=== PATIENT | male | born 1970 | race Caucasian/White ===

== ENCOUNTER 2017-05-11 09:20 | Inpatient (IN) | payer BC ==
[2017-05-11 10:26] LABS: ABS Basophils 0.1 10^3/ul (0-0.2); ABS Eosinophils 0 10^3/ul (0-0.6); ABS Lymphocytes 1.3 10^3/ul (1.0-4.8); ABS Neutrophils 9.4 10^3/ul (1.5-7.7); ABS Nucleated RBC 0 10^3/ul; Eosinophil % 0.3 % (0-6); Hematocrit 35 % (42-52); Lymphocyte % 11.3 % (25-47); Mean Corpuscular HGB Conc 34 g/dl (31-36); Mean Corpuscular Hemoglobin 33 pg (27-31); Mean Corpuscular Volume 99 fL (80-94); Mean Platelet Volume 8 um3 (7.4-10.4); Nucleated Red Blood Cells % 0.1; Platelet Count 366 10^3/ul (150-450); Red Blood Count 3.58 10^6/ul (4.0-5.4); Red Cell Distribution Width 17 % (10.5-15); White Blood Count 11.9 10^3/ul (3.5-10.8)
[2017-05-11 10:48] LABS: EGFR Non-African American 12.7 (>60)
--- NOTE | 2017-05-11 10:48 | RAD ---
INDICATION: Shortness of breath for 2 weeks. Midsternal chest pain. Bilateral lower extremity edema. History of amyloidosis. COMPARISON: March 06, [address] TECHNIQUE: Dual energy PA and routine lateral views of the chest were obtained. REPORT: Clear lungs and pleural spaces. Negative for pneumothorax. The heart, pulmonary vasculature, and mediastinal contours are unremarkable. Unremarkable osseous structures and soft tissue contours. IMPRESSION: No evidence for acute intrathoracic disease.
[2017-05-11] MEDS ORDERED: Acetaminophen TAB* 325 MG PO PRN (13:21)
[2017-05-11] MEDS ORDERED: Ondansetron INJ* 2 MG/ML VIAL IV PRN (13:21)
[2017-05-11] MEDS ORDERED: Aspirin TAB* 325 MG PO ONE (13:32)
[2017-05-11] MEDS ORDERED: Prochlorperazine TAB* 10 MG PO PRN (13:43)
[2017-05-11] MEDS ORDERED: Ondansetron TAB* 4 MG PO PRN (13:43)
[2017-05-11] MEDS ORDERED: Heparin DRIP 25,000 UNITS(*) 25,000 UNITS/500 ML BAG IV SCH (13:45)
[2017-05-11] MEDS ORDERED: Heparin VIAL(*) 5000 UNITS/ML VIAL (FIVE THOUSAND) IV SCH (14:00)
[2017-05-11] MEDS ORDERED: Enoxaparin(*) 40 MG/0.4 ML SYR SUBCUT SCH (15:00)
--- NOTE | 2017-05-11 15:28 | CONSULT ---
Subjective Date of Service: 05/11/17 Interval History: 05/11/2017 Service: Heme/Onc Film Maker: Dr. Rodriguez [facility] Director: Dr. Hannon PMD: Dr. Oquendo CC: dyspnea, fluid retention, chest discomfort Reason for consult: same plus abnormal troponin level HPI Mr. Kasper is an unfortunate 47 year old man with a history of AL amyloidosis and what appears to be severe renal involvement s/p biopsy with nephrotic syndrome and now I suspect cardiac involvement. He is admitted with fluid retention, poor appetite, dyspnea on any activity such as sitting up and episodes of chest pressure mostly when trying to lay flat. He has evidence of volume overload on examination. He has a detectable troponin that is stable on repeat examination and an abnormal EKG with no baseline for comparison. He has recently started chemotherapy. We talked about patients situation and testing performed so far. I do not appreciate evidence of a type 1 plaque disruption ND. We talked about gold standard of CAD evaluation being a coronary angiogram although this may precipitate need for dialysis which is trying to be avoided. As an alternative we will do a stress test. My overall suspicion is symptoms related to CHF and the stable troponin reflective of myocardial infiltrative disesae and renal disease. I discussed with CONCETTA Curiel who has already discussed with Dr. Hannon the need to begin loop diuretics and this is to be started IV. His echocardiogram from last month was reviewed. There is severe LVH. The EKG voltage today is low. His BP review from PMD office since 09/2013 shows an overall average of about ~ 140/85. 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 His is at bedside. 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 Fam Hx: DM, CAD, AFib allergies; nkda Medications Active Medications: Acetaminophen (Tylenol Tab*) 650 mg PO Q4H PRN PRN Reason: FEVER/PAIN Hydrocodone Bitart/Acetaminophen ([place] 5-325 Tab*) 2 tab PO Q4H PRN PRN Reason: PAIN Aspirin (Aspirin Ec Low Dose*) 81 mg PO DAILY [facility] Bumetanide (Bumex*) 1 mg SLOW PUSH DAILY [facility] Heparin Sodium (Porcine) (Heparin Vial(*)) 5,000 units SUBCUT Q8HR [facility] Magnesium Oxide (Magox 400 Tab*) 400 mg PO BID [facility] Ondansetron HCl (Zofran Inj*) 4 mg IV Q4H PRN PRN Reason: NAUSEA/VOMITING Ondansetron HCl (Zofran Tab*) 4 mg PO Q4HR PRN PRN Reason: NAUSEA/VOMITING Prochlorperazine (Compazine Tab*) 10 mg PO Q6H PRN PRN Reason: NAUSEA/VOMITING Trimethoprim/Sulfamethoxazole (Bactrim Ds 800/160 Tab*) 1 tab PO MoWeFr@0900 [facility] Valacyclovir HCl (Valtrex 500 Mg (*)) 500 mg PO BID [facility] PRN Reason: Protocol Home Medications: Cyclophosphamide 800 mg PO TU 05/11/17 [History Confirmed 05/11/17] Dexamethasone TAB* [Decadron TAB*] 40 mg PO TU 05/11/17 [History Confirmed 05/11] Hydrocodone/Acetamin 10/325(NF [[place] 10/325 (NF)] 1 tab PO Q4HR PRN 05/11/17 [ History Confirmed 05/11/17] Ondansetron TAB* [Zofran 4 MG Tab*] 4 mg PO Q4HR PRN MDD 4 mg 05/11/17 [History Confirmed 05/11/17] Prochlorperazine TAB* [Compazine Tab*] 10 mg PO Q6H PRN 05/11/17 [History Confirmed 05/11/17] Sulfamethox/Trimethoprim DS* [Bactrim DS 800/160 TAB*] 1 tab PO MOWEFR 05/11/17 [History Confirmed 05/11/17] ValACYclovir (*) [Valtrex 500 mg (*)] 500 mg PO BID 05/11/17 [History Confirmed 05/11/17] Review of Systems - Review of Systems Constitutional Symptoms: Negative: Weight Gain, Weight Loss, Weakness Dermatology: Negative: Rash, Skin Lesions HEENT: Negative: Change in Hearing, Vertigo Eyes: Negative: Change in Vision, Double Vision Thyroid: Negative: Cold Intolerance, Heat Intolerance, Primary Hypothyroidism, Primary Hyperthyroidism, Weight Loss, Weight Gain Pulmonary: Positive: Respiratory Distress, Shortness of Breath, Exercise Intolerance Negative: Cough, Sputum, Hemoptysis, Wheezing, Asthma, Home Oxygen Cardiology: Positive: Chest Pain, Shortness of Breath, Swelling of Ankles, Edema Negative: Palpitations, Peripheral Vascular Dis, Syncope, Claudication Gastroenterology: Positive: Nausea, Anorexia Negative: Abdominal Pain, Vomiting, Heartburn, Constipation, Diarrhea, Blood in Stools, Haematemesis, Melena Genital - Urinary: Negative: Dysuria, Nocturia Musculoskeletal: Positive: Low Back Pain Negative: Joint Pain, Joint Stiffness, Osteoporosis Endocrinology: Positive: Obesity Negative: Diabetes, Hyperglycemia, Hypoglycemia, Polydipsia, Polyuria Hematologic/Lymphatic: Negative: Use of Anticoagulant, Use of Antiplatelet Drugs Neurology: Negative: Diplopia, Dizziness, Change in Speech, Change in Sphincter Function , Hx of Stroke\TIA, Hx Seizures Psychiatry: Negative: Sexual Dysfunction, Weight Change, Unusual Anxiety, Suicidal Ideation, Hypomania, Eating Disorders, Other Allergic/Immunologic: Negative: Hx Anaphylaxis, Hx Angioedema, Hx HIV Review of Systems Statement: All other review of systems negative, unless stated above. Objective Vital Signs: Temp Pulse Resp BP Pulse Ox 98 F 78 18 127/80 97 05/11/17 15:10 05/11/17 15:10 05/11/17 15:10 05/11/17 15:10 05/11/17 15:10 Appearance: pleasant, chronically ill and fatigued appearing Neck: Trachea Midline, - - uncertain jvp Respiratory: Clear to Auscultation - mild increased work of breathing Cardiovascular: RRR - distant, no obvious murmur or extra heart sounds, has edema of legs 3+ and abdominal wall. Abdominal: - - soft, no rigidity Extremities: No Clubbing, Cyanosis Skin: No Rash or Ulcers Neurological: Alert and Oriented x 3 Laboratory Results: 05/11/17 10:09 05/11/17 10:09 Total Bilirubin 0.30 mg/dL (0.2-1.0) 05/11/17 10:09 AST 20 U/L (13-39) 05/11/17 10:09 ALT 47 U/L (7-52) 05/11/17 10:09 Alkaline Phosphatase 548 U/L (34-104) H 05/11/17 10:09 CK-MB (CK-2) 3.8 ng/mL (0.6-6.3) 05/11/17 10:09 B-Natriuretic Peptide 534 pg/mL (-100) H 05/11/17 10:09 Total Protein 4.2 g/dL (6.4-8.9) L 05/11/17 10:09 Albumin 1.8 g/dL (3.2-5.2) L 05/11/17 10:09 Globulin 2.4 g/dL (2-4) 05/11/17 10:09 Albumin/Globulin Ratio 0.8 (1-3) L 05/11/17 10:09 TSH 2.36 mcIU/mL (0.34-5.60) 05/11/17 10:09 05/11/17 05/11/17 10:09 12:56 Troponin I 0.26 H* 0.25 H* Renal biopsy 03/2017: LA lambda type amyloidosis, mild-moderate arteriosclerosis Diagnostic Imaging: CT 03/06/2017 indication chest pain: No pulmonary lesions CXR 05/11/2017: No acute disease, normal sized cardiac silhouette EKG today NSR, low limb lead and precordial voltage, diffuse T wave inversions except aVR and v1-v3 EKG Data: Echo 04/20/2017 (reviewed): IVS ~ 2.0 cm, LPW ~ 1.8 cm (severe LVH), LVEF normal , normal RV size and function (thickness not well evaluated) e/e' 12, LA indexed volume ~ 35 (mildly dilated), normal estimated PASP Assessment/Plan Edgardo Kasper is a 47 year old man admitted with symptomatic volume overload with chest discomfort and an abnormal EKG/troponin in the setting of 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 - IV diuresis to begin today, keep K and Mg replaced - Will arrange a vasodilator stress MPI tomorrow - Repeat EKG, would check one more troponin. - Continue aspirin 81 mg po daily - I advised patient have a non-urgent consultation with heart failure specialist Dr. Swetha Modi at the [facility] at some point. - Will follow Thank you for allowing me to participate in the cardiovascular care of this patient. Please do not hesitate to contact me with questions or concerns.
[2017-05-11] MEDS: Bumetanide IV* 0.25 MG/ML 4 ML VIAL SLOW PUSH SCH (15:58)
[2017-05-11] MEDS: HYDROcodone/ACETAMIN 5-325 MG* 1 TAB PO PRN ×2 (15:58→20:08)
--- NOTE | 2017-05-11 18:58 | HP ---
CC: Dr. Rodriguez; Dr. Oquendo* ADMISSION HISTORY AND PHYSICAL: DATE OF ADMISSION: 05/11/17 PRIMARY ONCOLOGIST: Dr. Rodriguez. ATTENDING PHYSICIAN: Dr. Santoro* (dictated by CONCETTA Oh). PRIMARY CARE PROVIDER: Jamaal Oquendo MD CHIEF COMPLAINT: Chest pain and shortness of breath. HISTORY OF PRESENT ILLNESS: This is a 47-year-old gentleman with a relatively recent diagnosis of amyloidosis with associated progressive renal failure, recently started induction therapy under the care of Dr. Rodriguez. The patient started his first cycle with cyclophosphamide, Velcade and dexamethasone on with day 15 and 22 Velcade infusions on 05/02/17 and 05/09/17 respectively. The patient has had complaints of progressive shortness of breath and lower extremity edema over at least the last month or so. Over the last couple of days, his shortness of breath and the severity of his edema has increased significantly. He tolerated his first 2 treatments well, but yesterday which was the day following his last treatment day, he had significant nausea, vomiting, and diarrhea. He treated symptoms with Compazine and Zofran with some improvement in his nausea and vomiting. His appetite remains poor, but his diarrhea has resolved and he has not vomited further today. The patient's states that he complained of some chest tightness last night that resolved spontaneously, but then recurred again this morning at approximately 6:00 a.m. while at rest. He described the sensation as a heaviness, but without significant change in his dyspnea. His dyspnea is generally related only to exertion, and has none at rest. The chest heaviness that brought him to the emergency department was rather persistent, but seemed to lessen in severity once reaching the emergency department. He denies any associated cough or fever. He remains with good urine output, but reports that it is slightly frothy and foul smelling. The patient has met with Dr. Hannon prior to initiating therapy. The patient has no known coronary disease or other cardiac complication. He did have an echocardiogram prior to initiating therapy, which demonstrated moderate to severe ventricular hypertrophy with associated diastolic dysfunction, but a preserved ejection fraction estimated at 55% to 60%. There is no comment as to the presence of pulmonary hypertension on that echocardiogram. PAST MEDICAL HISTORY: 1. Amyloidosis AL lambda type. 2. Progressive renal failure secondary to amyloidosis. 3. Morbid obesity with a BMI of 39. 4. Chronic back pain. HOME MEDICATIONS: 1. Cyclophosphamide 800 mg p.o. weekly on Tuesdays. 2. Velcade weekly on Tuesdays. 3. Dexamethasone 40 mg p.o. weekly on Tuesdays. 4. Hydrocodone/acetaminophen 10/325, 1 tablet p.o. q.4 hours as needed for pain. 5. Zofran 4 mg p.o. q.4 hours as needed for nausea and vomiting. 6. Compazine 10 mg p.o. q.6 hours as needed for nausea and vomiting. 7. Bactrim DS 1 tablet p.o. on Mondays,Wednesdays, and Fridays. 8. Valacyclovir 100 mg p.o. twice daily. SOCIAL HISTORY: Patient has a remote history of smoking, but quit several years ago, unsure of his pack year history. He reports rare alcohol consumption. The patient lives at home with his . REVIEW OF SYSTEMS: Please see HPI for pertinent positives and negatives. All other systems are reviewed and otherwise negative. PHYSICAL EXAMINATION GENERAL: This is a 47-year-old gentleman in no acute distress, but does appear to be mildly anxious, accompanied by his . VITAL SIGNS: Temperature 98.7 degrees Fahrenheit, pulse 86 beats per minute, respiratory rate 20 per minute, oxygen saturation 98% on room air, blood pressure 105/66 mmHg. HEENT: Head is normocephalic, atraumatic. Mucous membranes are pink and moist. NECK: Neck is supple, free of lymphadenopathy. RESPIRATORY: Lungs are clear auscultation without wheezes, crackles or rhonchi. CARDIOVASCULAR: Heart has a regular rate and rhythm without murmurs, rubs, or gallops. ABDOMEN: Soft and nontender to palpation. EXTREMITIES: The patient is grossly edematous in all extremities, but severely so, estimated at 3+ in his lower extremities up to his knees. He has trace edema in his upper extremities. SKIN: Patient has a focal patch of erythema over the left lateral portion of the abdomen. He states it is where he received his Velcade. LABORATORY EVALUATION: CBC shows a white blood cell count of 11,900, hemoglobin of 12 g/dL, platelet count of 366,000. Comprehensive metabolic shows a sodium of 137 mmol/L, potassium is 3.7, BUN of 48, creatinine of 4.9 with an estimated GFR of 12.7. Random glucose of 110 mg/ dL, calcium of 7.5, magnesium of 1.7. BNP elevated at 534. Troponin positive at 0.26 on repeat 3 hours later at 0.25. TSH normal at 2.36. IMAGING DATA: Chest x-ray shows no acute process. EKG shows a sinus rhythm with inverted T-waves in V4 through V6. No ST segment elevation or depression. Echocardiogram from 04/20/17 shows [id number] left ventricular hypertrophy with a preserved EF estimated at 55% to 60%. ASSESSMENT AND PLAN: This is a 47-year-old gentleman with relatively new diagnosis of amyloidosis, who just initiated induction therapy with Velcade, cyclophosphamide, and dexamethasone. First cycle started on 04/25/17 with most recent treatment on 05/09/17 just 2 days ago, who presented to the department complaints of chest pain and shortness of breath with marked edema. Initial troponin elevated concerning for possible acute coronary syndrome with ST segment changes. 1. Demand ischemia secondary to acute diastolic heart failure - Cardiology has been consulted on this case. Initial concern for possible acute coronary syndrome, but on repeat troponin, this remained stable without any ST segment changes and his history appears to be most consistent with a heart failure picture. At this time, we will not initiate anticoagulation, but rather repeat an additional troponin for a total of 3. Maintain continuous telemetry monitoring. Plan to repeat an echocardiogram. Cardiology has recommended a stress test, which will be completed tomorrow and the patient requires extensive diuresis. Discussed diuresis recommendations with gate manager, Dr. Hannon, who agreed with plan to initiate diuresis for his complaints of dyspnea. The patient will require close monitoring of I's and O's and requested daily weights. 2. Chronic renal failure secondary to amyloidosis - creatinine has climbed significantly over the last 6 months, but relatively stable over the last 4 weeks or so. The patient has been seen in consultation on an outpatient basis by Dr. Hannon. The patient is reporting good urine output at this time. We will attempt to diurese and expect to see some rise in his creatinine as a result of this. Dr. Hannon has been contacted at the time of admission and agrees to consult, then follow along during his hospitalization. 3. Morbid obesity with a BMI of 39. 4. DVT prophylaxis. Start the patient on subcu Heparin due to his renal dysfunction 5. Healthcare proxy is the patient's . 6. Code status is full. 7. Disposition: The patient is being admitted to inpatient status with likely acute diastolic heart failure with expected length of stay to be greater than 2 midnights. CONCETTA [place] [id number]/[facility] #: [id number] MELLISA
[2017-05-11] MEDS: ValACYclovir (*) 500 MG TAB PO SCH (20:08)
[2017-05-11] MEDS: Magnesium Oxide TAB* 400 MG PO SCH (20:08)
[2017-05-11] MEDS: Heparin VIAL(*) 5000 UNITS/ML VIAL (FIVE THOUSAND) SUBCUT SCH (22:57)
[2017-05-12 06:22] LABS: ABS Basophils 0.1 10^3/ul (0-0.2); ABS Eosinophils 0.1 10^3/ul (0-0.6); ABS Lymphocytes 1.4 10^3/ul (1.0-4.8); ABS Neutrophils 4.9 10^3/ul (1.5-7.7); ABS Nucleated RBC 0 10^3/ul; Eosinophil % 1.1 % (0-6); Hematocrit 30 % (42-52); Hemoglobin 10.4 g/dl (14.0-18.0); Lymphocyte % 18.3 % (25-47); Mean Corpuscular HGB Conc 35 g/dl (31-36); Mean Corpuscular Hemoglobin 35 pg (27-31); Mean Corpuscular Volume 99 fL (80-94); Mean Platelet Volume 8 um3 (7.4-10.4); Nucleated Red Blood Cells % 0.1; Platelet Count 302 10^3/ul (150-450); Red Blood Count 3.02 10^6/ul (4.0-5.4); Red Cell Distribution Width 17 % (10.5-15); White Blood Count 7.4 10^3/ul (3.5-10.8)
[2017-05-12] MEDS: Heparin VIAL(*) 5000 UNITS/ML VIAL (FIVE THOUSAND) SUBCUT SCH ×3 (06:22→22:19)
[2017-05-12 06:36] LABS: EGFR Non-African American 13.1 (>60)
[2017-05-12] MEDS: HYDROcodone/ACETAMIN 5-325 MG* 1 TAB PO PRN ×3 (06:53→17:24)
--- NOTE | 2017-05-12 08:46 | ED ---
Cl Yousif Angela, scribed for Jamaal Lazaro MD on 05/11/17 at 1035 . Shortness of Breath - HPI Summary HPI Summary: This pt is a 47 y/o male presenting to [facility] c/o SOB and weakness for the past few days. Pt additionally notes this morning the pt developed tightness in his chest. He reports he has had edema in bilateral lower extremities for "quite a while." Denies nausea, vomiting, abd pain. Pt is currently on chemo for amyloid with Dr. Rodriguez. Pt's billiard player is Dr. Hannon. - History of Current Complaint Chief Complaint: EDShortnessOfBreath Time Seen by Provider: 05/11/17 09:45 Hx Obtained From: Patient Onset/Duration: Lasting Days, Still Present Timing: Constant Current Severity: Moderate Dyspnea At: Rest Aggrevating Factors: Nothing Alleviating Factors: Nothing Associated Signs & Symptoms: Chest Pain Unrelated to Cough, Edema - Allergy/Home Medications Allergies/Adverse Reactions: Allergies Allergy/AdvReac Type Severity Reaction Status Date / Time No Known Allergies Allergy Verified 04/05/17 12:00 Home Medications: Home Medications Cyclophosphamide 800 mg PO TU 05/11/17 [History Confirmed 05/11/17] Dexamethasone TAB* [Decadron TAB*] 40 mg PO TU 05/11/17 [History Confirmed 05/11] Hydrocodone/Acetamin 10/325(NF [[place] 10/325 (NF)] 1 tab PO Q4HR PRN 05/11/17 [ History Confirmed 05/11/17] Ondansetron TAB* [Zofran 4 MG Tab*] 4 mg PO Q4HR PRN MDD 4 mg 05/11/17 [History Confirmed 05/11/17] Prochlorperazine TAB* [Compazine Tab*] 10 mg PO Q6H PRN 05/11/17 [History Confirmed 05/11/17] Sulfamethox/Trimethoprim DS* [Bactrim DS 800/160 TAB*] 1 tab PO MOWEFR 05/11/17 [History Confirmed 05/11/17] ValACYclovir (*) [Valtrex 500 mg (*)] 500 mg PO BID 05/11/17 [History Confirmed 05/11/17] PMH/Surg Hx/FS Hx/Imm Hx Endocrine/Hematology History: Denies: Hx Diabetes History: Reports: Hx Kidney Stones - 07/02/14, Hx Renal Disease - DIMINISHED GFR Neurological History: Reports: Other Neuro Impairments/Disorders - PAIN CLINIC PT - Surgical History Surgery Procedure, Year, and Place: Lithotrypsy Infectious Disease History: No Infectious Disease History: Denies: Traveled Outside the [place] in Last 30 Days - Family History Known Family History: Negative: Cardiac Disease, Hypertension, Diabetes - Social History Alcohol Use: None Alcohol Amount: maybe once a year Substance Use Type: Reports: None Substance Use Comment - Amount & Last Used: flexeril, hydrocodone Smoking Status (MU): Former Smoker Have You Smoked in the Last Year: No Review of Systems Negative: Fever, Chills Eyes: Negative Positive: Chest Pain Positive: Shortness Of Breath Positive: Edema - in bilateral LE Skin: Negative Neurological: Negative All Other Systems Reviewed And Are Negative: Yes Physical Exam - Summary Physical Exam Summary: VITAL SIGNS: Reviewed. GENERAL: Patient is an obese male who is lying comfortable in the stretcher. Patient is not in any acute respiratory distress. HEAD AND FACE: No signs of trauma. No ecchymosis, hematomas or skull depressions. No sinus tenderness. EYES: PERRLA, EOMI x 2, No injected conjunctiva, no nystagmus. EARS: Hearing grossly intact. Ear canals and tympanic membranes are within normal limits. MOUTH: Oropharynx within normal limits. NECK: Supple, trachea is midline, no adenopathy, no JVD, no carotid bruit, no c- spine tenderness, neck with full ROM. CHEST: Symmetric, no tenderness at palpation LUNGS: Clear to auscultation bilaterally. No wheezing or crackles. CVS: Regular rate and rhythm, S1 and S2 present, no murmurs or gallops appreciated. ABDOMEN: Soft, non-tender. No signs of distention. No rebound no guarding, and no masses palpated. Bowel sounds are normal. EXTREMITIES: FROM in all major joints, no cyanosis or clubbing. Bilateral lower extremity edema 2+. NEURO: Alert and oriented x 3. No acute neurological deficits. Speech is normal and follows commands. SKIN: Dry and warm. Spot of cellulitis on left side of the abdomen. Triage Information Reviewed: Yes Vital Signs On Initial Exam: Initial Vitals Temp Pulse Resp BP Pulse Ox 98.7 F 86 20 105/66 98 05/11/17 09:24 05/11/17 09:24 05/11/17 09:24 05/11/17 09:24 05/11/17 09:24 Vital Signs Reviewed: Yes Diagnostics - Vital Signs Vital Signs Temp Pulse Resp BP Pulse Ox 05/11/17 09:29 87 97 05/11/17 09:28 105/66 05/11/17 09:24 98.7 F 86 20 105/66 98 - Laboratory Result Diagrams: 05/11/17 10:09 05/11/17 10:09 Lab Statement: Any lab studies that have been ordered have been reviewed, and results considered in the medical decision making process. - Radiology Chest XR Xray Interpretation: No Acute Changes - IMPRESSION: No evidence for acute intrathoracic disease. Dr. Lazaro has reviewed this radiology report. Radiology Interpretation Completed By: Radiologist - EKG 09:50 Cardiac Rate: NL EKG Rhythm: Sinus Rhythm - a 84 bpm EKG Interpretation: No ST elevations. Diffuse ST abnormalities. Course/Dx - Course Assessment/Plan: This pt is a 47 y/o male presenting to [facility] c/o SOB and weakness for the past few days. Pt additionally notes this morning the pt developed tightness in his chest. He reports he has had edema in bilateral lower extremities for "quite a while." Denies nausea, vomiting, abd pain. Pt is currently on chemo for amyloid with Dr. Rodriguez. Pt's billiard player is Dr. Hannon. Test results without any significant abnormalities except for slight anemia, chronic renal failure, troponin of 0.26, BNP of 534. In the ED course the pt was given aspirin and because of the test results and findings, I discussed the case with Dr. Flores, hospitalist, who requested to discuss the case with Dr. Rodriguez for admission. I discussed the case with Dr. Santoro, oncologist, who recommends for the pt to be admitted to the medical team. Therefore I discussed the case with Dr. Flores, hospitalist, who accepted the pt for admission. Pt is hemodynamically stable, alert and oriented x3. - Diagnoses Provider Diagnoses: Elevated troponin, rule out AL, CHF exacerbation, Chronic renal failure - Physician Notifications Discussed Care of Patient With: Roberta Flores Time Discussed With Above Provider: 11:27 Instructed by Provider To: Other - I discussed pt care with Dr. Flores, hospitalist, who requested to discuss the case with Dr. Santoro. [11:31] I spoke with Dr. Santoro, oncologist, who recommends for the pt to be admitted to the medical team. [11:34] I discussed with Dr. Flores, hospitalist, who has accepted the pt for admission. Discharge - Discharge Plan Condition: Stable Disposition: ADMITTED TO [facility] The documentation as recorded by the Cl cheek Angela accurately reflects the service I personally performed and the decisions made by me, Jamaal Lazaro MD.
--- NOTE | 2017-05-12 09:57 | PN ---
Subjective Date of Service: 05/12/17 Interval History: f/u CHF Only has chest discomfort when tries to lay flat Unable to sleep sitting up due to back pain Urinated multiple times overnight but I am unsure of total output Lexiscan stress test planned for today Medications Active Medications: Acetaminophen (Tylenol Tab*) 650 mg PO Q4H PRN PRN Reason: FEVER/PAIN Hydrocodone Bitart/Acetaminophen ([place] 5-325 Tab*) 2 tab PO Q4H PRN PRN Reason: PAIN Last Admin: 05/12/17 06:53 Dose: 2 tab Aspirin (Aspirin Ec Low Dose*) 81 mg PO DAILY [facility] Bumetanide (Bumex*) 1 mg SLOW PUSH DAILY [facility] Last Admin: 05/11/17 15:58 Dose: 1 mg Heparin Sodium (Porcine) (Heparin Vial(*)) 5,000 units SUBCUT Q8HR [facility] Last Admin: 05/12/17 06:22 Dose: 5,000 units Magnesium Oxide (Magox 400 Tab*) 400 mg PO BID [facility] Last Admin: 05/11/17 20:08 Dose: 400 mg Ondansetron HCl (Zofran Inj*) 4 mg IV Q4H PRN PRN Reason: NAUSEA/VOMITING Ondansetron HCl (Zofran Tab*) 4 mg PO Q4HR PRN PRN Reason: NAUSEA/VOMITING Prochlorperazine (Compazine Tab*) 10 mg PO Q6H PRN PRN Reason: NAUSEA/VOMITING Trimethoprim/Sulfamethoxazole (Bactrim Ds 800/160 Tab*) 1 tab PO MoWeFr@0900 [facility] Valacyclovir HCl (Valtrex 500 Mg (*)) 500 mg PO BID [facility] PRN Reason: Protocol Last Admin: 05/11/17 20:08 Dose: 500 mg Objective Vital Signs: Temp Pulse Resp BP Pulse Ox 97.8 F 87 20 141/78 96 05/12/17 04:09 05/12/17 04:09 05/12/17 06:53 05/12/17 04:09 05/12/17 04:09 Oxygen Devices in Use Now: None Appearance: pleasant, chronically ill and fatigued appearing Neck: Trachea Midline, - - uncertain jvp Respiratory: Clear to Auscultation - mild increased work of breathing Cardiovascular: RRR - distant, no obvious murmur or extra heart sounds, has edema of legs 3+ and abdominal wall. Abdominal: - - soft, no rigidity Extremities: No Clubbing, Cyanosis Skin: No Rash or Ulcers Neurological: Alert and Oriented x 3 Laboratory Results: 05/12/17 06:04 05/12/17 06:11 Total Bilirubin 0.30 mg/dL (0.2-1.0) 05/12/17 06:11 AST 17 U/L (13-39) 05/12/17 06:11 ALT 33 U/L (7-52) 05/12/17 06:11 Alkaline Phosphatase 477 U/L (34-104) H 05/12/17 06:11 CK-MB (CK-2) 3.8 ng/mL (0.6-6.3) 05/11/17 10:09 B-Natriuretic Peptide 534 pg/mL (-100) H 05/11/17 10:09 Total Protein 4.0 g/dL (6.4-8.9) L 05/12/17 06:11 Albumin 1.7 g/dL (3.2-5.2) L 05/12/17 06:11 Globulin 2.3 g/dL (2-4) 05/12/17 06:11 Albumin/Globulin Ratio 0.7 (1-3) L 05/12/17 06:11 TSH 2.36 mcIU/mL (0.34-5.60) 05/11/17 10:09 05/11/17 05/11/17 05/11/17 10:09 12:56 15:35 Troponin I 0.26 H* 0.25 H* 0.25 H* Diagnostic Imaging: CT 03/06/2017 indication chest pain: No pulmonary lesions CXR 05/11/2017: No acute disease, normal sized cardiac silhouette EKG today NSR, low limb lead and precordial voltage, diffuse T wave inversions except aVR and v1-v3 EKG Data: Echo 04/20/2017 (reviewed): IVS ~ 2.0 cm, LPW ~ 1.8 cm (severe LVH), LVEF normal , normal RV size and function (thickness not well evaluated) e/e' 12, LA indexed volume ~ 35 (mildly dilated), normal estimated PASP Assessment/Plan Edgardo Kasper is a 47 year old man admitted with symptomatic volume overload with chest discomfort and an abnormal EKG/troponin in the setting of 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 - Continue IV diuresis, adjust as needed, keep K and Mg replaced - vasodilator stress MPI pending - Continue aspirin 81 mg po daily - Patient would benefit from a non-urgent consultation with heart failure specialist Dr. Swetha Modi at the [facility] at some point. - Will follow Thank you for allowing me to participate in the cardiovascular care of this patient. Please do not hesitate to contact me with questions or concerns.
[2017-05-12] MEDS ORDERED: Regadenoson* 0.4 MG/5 ML SYRINGE ONE (10:08)
[2017-05-12] MEDS: ValACYclovir (*) 500 MG TAB PO SCH ×2 (11:40→20:37)
[2017-05-12] MEDS: Bumetanide IV* 0.25 MG/ML 4 ML VIAL SLOW PUSH SCH (11:40)
[2017-05-12] MEDS: Magnesium Oxide TAB* 400 MG PO SCH ×2 (11:40→20:28)
[2017-05-12] MEDS: Sulfamethox/Trimethoprim DS 800/160* TAB PO SCH (11:40)
[2017-05-12] MEDS: Aspirin EC Low Dose* 81 MG TAB.EC PO SCH (11:40)
[2017-05-12] MEDS: NS 0.9% IV SCH ×2 (16:00→22:19)
[2017-05-12] MEDS: FUROSEMIDE IV SCH ×2 (16:00→22:19)
[2017-05-12] MEDS: Albumin Human 25%* 25 GM/100 ML BTL IV SCH ×2 (16:02→16:37)
[2017-05-12] MEDS: Albumin Human 25%* 12.5 GM/50 ML BTL IV SCH ×2 (17:16→21:41)
--- NOTE | 2017-05-12 17:23 | PN ---
Progress Note - Progress Note Date of Service: 05/12/17 SOAP: Subjective: []Developed nausea and diarrhea after last chemotherapy followed by progressive SOB, SHAUN and chest pain. Laboratory evaluation showed positive troponin, increased Cr to 4.9, Albumin down further to 1.7. Admission, has been seen by Dr. Ball in Cardiology, stress test pending. Seen by Dr. Hannon, now in ICU on Albumin infusion and IV diuretics. Acetaminophen (Tylenol Tab*) 650 mg PO Q4H PRN PRN Reason: FEVER/PAIN Hydrocodone Bitart/Acetaminophen ([place] 5-325 Tab*) 2 tab PO Q4H PRN PRN Reason: PAIN Last Admin: 05/12/17 11:40 Dose: 2 tab Aspirin (Aspirin Ec Low Dose*) 81 mg PO DAILY [facility] Last Admin: 05/12/17 11:40 Dose: 81 mg Bumetanide (Bumex*) 1 mg SLOW PUSH DAILY [facility] Last Admin: 05/12/17 11:40 Dose: 1 mg Heparin Sodium (Porcine) (Heparin Vial(*)) 5,000 units SUBCUT Q8HR [facility] Last Admin: 05/12/17 13:48 Dose: 5,000 units Albumin Human (Albumin Human 25%*) 12.5 gm in 50 mls @ 12 mls/hr IV Q4H [facility] PRN Reason: Protocol Furosemide 250 mg/ Sodium (Chloride) 250 mls @ 40 mls/hr IV Q6H [facility] PRN Reason: Protocol Last Admin: 05/12/17 16:00 Dose: 40 mls/hr Magnesium Oxide (Magox 400 Tab*) 400 mg PO BID [facility] Last Admin: 05/12/17 11:40 Dose: 400 mg Ondansetron HCl (Zofran Inj*) 4 mg IV Q4H PRN PRN Reason: NAUSEA/VOMITING Ondansetron HCl (Zofran Tab*) 4 mg PO Q4HR PRN PRN Reason: NAUSEA/VOMITING Prochlorperazine (Compazine Tab*) 10 mg PO Q6H PRN PRN Reason: NAUSEA/VOMITING Trimethoprim/Sulfamethoxazole (Bactrim Ds 800/160 Tab*) 1 tab PO MoWeFr@0900 [facility] Last Admin: 05/12/17 11:40 Dose: 1 tab Valacyclovir HCl (Valtrex 500 Mg (*)) 500 mg PO BID [facility] PRN Reason: Protocol Last Admin: 05/12/17 11:40 Dose: 500 mg Objective: [] Vital Signs Temp Pulse Resp BP Pulse Ox 98.5 F 82 19 125/83 99 05/12/17 16:00 05/12/17 17:00 05/12/17 17:00 05/12/17 16:30 05/12/17 17:00 HEENT: mucosa moist Neck edema CTA S1S2 decreased sounds obese, diffuse abd wall edema +3 SHAUN Assessment: []47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 He has had a serologic response with serum lambda from 33 to 6 but with continued nephrotic syndrome. I suspect current symptoms are from low protein effects on GI track and heart. Case was discussed with Dr. Hannon and I agree with albumin drip and IV diuretics to improve fluid status. Plan: []1. Renal Failure. Will proceed with albumin infusion to raise intravascular pressure and dieresis. ICU and follow I/O, re-check CMP in am. 2. Cardiac. Check stress test to rule out overlying CAD. I hope that symptoms will improve with improved fluid balance. 3. GI. Eating better, encouraged po intake 4. Amyloidosis. Would like to continue his chemotherapy as it is the only path forward. Treatment due on Monday. 5. Disp. Expect hospital stay through early next week.
[2017-05-13] MEDS: Albumin Human 25%* 12.5 GM/50 ML BTL IV SCH ×6 (00:43→21:32)
[2017-05-13] MEDS: HYDROcodone/ACETAMIN 5-325 MG* 1 TAB PO PRN ×5 (01:55→23:05)
[2017-05-13] MEDS: NS 0.9% IV SCH ×3 (04:28→18:36)
[2017-05-13] MEDS: FUROSEMIDE IV SCH ×3 (04:28→18:36)
[2017-05-13] MEDS: Heparin VIAL(*) 5000 UNITS/ML VIAL (FIVE THOUSAND) SUBCUT SCH ×3 (05:35→21:36)
[2017-05-13 05:47] LABS: ABS Basophils 0.1 10^3/ul (0-0.2); ABS Eosinophils 0.1 10^3/ul (0-0.6); ABS Lymphocytes 1.2 10^3/ul (1.0-4.8); ABS Monocytes 0.8 10^3/ul (0-0.8); ABS Neutrophils 3.8 10^3/ul (1.5-7.7); ABS Nucleated RBC 0 10^3/ul; Eosinophil % 1.4 % (0-6); Hematocrit 26 % (42-52); Hemoglobin 9.4 g/dl (14.0-18.0); Lymphocyte % 20.6 % (25-47); Mean Corpuscular HGB Conc 36 g/dl (31-36); Mean Corpuscular Hemoglobin 35 pg (27-31); Mean Corpuscular Volume 98 fL (80-94); Mean Platelet Volume 8 um3 (7.4-10.4); Nucleated Red Blood Cells % 0.2; Platelet Count 269 10^3/ul (150-450); Red Blood Count 2.68 10^6/ul (4.0-5.4); Red Cell Distribution Width 18 % (10.5-15)
[2017-05-13 05:56] LABS: EGFR Non-African American 13.2 (>60)
[2017-05-13] MEDS: Aspirin EC Low Dose* 81 MG TAB.EC PO SCH (09:24)
[2017-05-13] MEDS: Magnesium Oxide TAB* 400 MG PO SCH ×2 (09:24→21:37)
[2017-05-13] MEDS: ValACYclovir (*) 500 MG TAB PO SCH ×2 (09:25→21:37)
--- NOTE | 2017-05-13 10:12 | PN ---
Progress Note - Progress Note Date of Service: 05/13/17 SOAP: Subjective: []Better today. Feels less bloated and no chest pain. Eating this am, better. He is urinating frequently and that is his primary complaint, 6L yesterday. Not dizzy sitting up. No fevers. Objective: [] Vital Signs Temp Pulse Resp BP Pulse Ox 97.3 F 83 23 125/71 93 05/13/17 08:00 05/13/17 09:01 05/13/17 09:01 05/13/17 09:00 05/13/17 09:01 Gen: sitting up and more alert HEENT: mucosa moist Neck edema CTA S1S2 decreased sounds obese, diffuse abd wall edema +3 SHAUN 6L out yesterday. 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 He has had a serologic response with serum lambda from 33 to 6 but with continued nephrotic syndrome. I suspect current symptoms are from low protein effects on GI track and heart. Case was discussed with Dr. Hannon and will continue albumin drip and IV diuretics to improve fluid status. Plan: []1. Renal Failure. Will continue with albumin infusion to raise intravascular pressure and dieresis. ICU and follow I/O, re-check CMP in am. 2. Cardiac. Check stress test to rule out overlying CAD. I hope that symptoms will improve with improved fluid balance. 3. GI. Eating better, encouraged po intake 4. Amyloidosis. Would like to continue his chemotherapy as it is the only path forward. Treatment due on Monday. Check 24 hr urine for protein. 5. Disp. Expect hospital stay through early next week. 6. Bowl regimen per Dr Hannon
--- NOTE | 2017-05-13 15:17 | PN ---
Subjective Date of Service: 05/13/17 Interval History: f/u CHF Now on albumin infusion with IV lasix gtt and excellent diuretic response Feels much better overall, less bloated and less dyspnea He declines a stress test No further chest discomfort while laying flat Medications Active Medications: Acetaminophen (Tylenol Tab*) 650 mg PO Q4H PRN PRN Reason: FEVER/PAIN Hydrocodone Bitart/Acetaminophen ([place] 5-325 Tab*) 2 tab PO Q4H PRN PRN Reason: PAIN Last Admin: 05/13/17 12:33 Dose: 2 tab Aspirin (Aspirin Ec Low Dose*) 81 mg PO DAILY [facility] Last Admin: 05/13/17 09:24 Dose: 81 mg Trail Oil (Trail Oil (Pharmaceutic Aid)*) 30 ml PO ONCE ONE Stop: 05/13/17 18:01 Heparin Sodium (Porcine) (Heparin Vial(*)) 5,000 units SUBCUT Q8HR [facility] Last Admin: 05/13/17 13:59 Dose: 5,000 units Albumin Human (Albumin Human 25%*) 12.5 gm in 50 mls @ 12 mls/hr IV Q4H [facility] PRN Reason: Protocol Last Admin: 05/13/17 13:05 Dose: 12 mls/hr Furosemide 250 mg/ Sodium (Chloride) 250 mls @ 40 mls/hr IV Q6H [facility] PRN Reason: Protocol Last Admin: 05/13/17 10:53 Dose: 40 mls/hr Magnesium Oxide (Magox 400 Tab*) 400 mg PO BID [facility] Last Admin: 05/13/17 09:24 Dose: 400 mg Ondansetron HCl (Zofran Inj*) 4 mg IV Q4H PRN PRN Reason: NAUSEA/VOMITING Ondansetron HCl (Zofran Tab*) 4 mg PO Q4HR PRN PRN Reason: NAUSEA/VOMITING Prochlorperazine (Compazine Tab*) 10 mg PO Q6H PRN PRN Reason: NAUSEA/VOMITING Trimethoprim/Sulfamethoxazole (Bactrim Ds 800/160 Tab*) 1 tab PO MoWeFr@0900 [facility] Last Admin: 05/12/17 11:40 Dose: 1 tab Valacyclovir HCl (Valtrex 500 Mg (*)) 500 mg PO BID [facility] PRN Reason: Protocol Last Admin: 05/13/17 09:25 Dose: 500 mg Objective Vital Signs: Temp Pulse Resp BP Pulse Ox 97.5 F 83 18 113/63 96 05/13/17 12:00 05/13/17 14:01 05/13/17 14:01 05/13/17 14:00 05/13/17 14:01 Oxygen Devices in Use Now: None Appearance: pleasant, chronically ill and fatigued appearing Neck: Trachea Midline, - Respiratory: Clear to Auscultation - mild increased work of breathing Cardiovascular: RRR - distant, no obvious murmur or extra heart sounds, has edema of legs 3+ and abdominal wall., - - + jvd Abdominal: - - soft, no rigidity Extremities: No Clubbing, Cyanosis, - - 3+ edema legs Skin: No Rash or Ulcers Neurological: Alert and Oriented x 3 Laboratory Results: 05/13/17 05:30 05/13/17 05:30 Total Bilirubin 0.50 mg/dL (0.2-1.0) 05/13/17 05:30 AST 16 U/L (13-39) 05/13/17 05:30 ALT 24 U/L (7-52) 05/13/17 05:30 Alkaline Phosphatase 378 U/L (34-104) H 05/13/17 05:30 CK-MB (CK-2) 3.8 ng/mL (0.6-6.3) 05/11/17 10:09 B-Natriuretic Peptide 534 pg/mL (-100) H 05/11/17 10:09 Total Protein 4.3 g/dL (6.4-8.9) L 05/13/17 05:30 Albumin 2.4 g/dL (3.2-5.2) L 05/13/17 05:30 Globulin 1.9 g/dL (2-4) L 05/13/17 05:30 Albumin/Globulin Ratio 1.3 (1-3) 05/13/17 05:30 TSH 2.36 mcIU/mL (0.34-5.60) 05/11/17 10:09 05/11/17 05/11/17 05/11/17 10:09 12:56 15:35 Troponin I 0.26 H* 0.25 H* 0.25 H* Diagnostic Imaging: CT 03/06/2017 indication chest pain: No pulmonary lesions CXR 05/11/2017: No acute disease, normal sized cardiac silhouette EKG today NSR, low limb lead and precordial voltage, diffuse T wave inversions except aVR and v1-v3 EKG Data: Echo 04/20/2017 (reviewed): IVS ~ 2.0 cm, LPW ~ 1.8 cm (severe LVH), LVEF normal , normal RV size and function (thickness not well evaluated) e/e' 12, LA indexed volume ~ 35 (mildly dilated), normal estimated PASP Assessment/Plan Edgardo Kasper is a 47 year old man admitted with symptomatic volume overload in the setting of 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 - Continue IV diuresis, keep K and Mg replaced - Patient would benefit from a non-urgent consultation with heart failure specialist Dr. Swetha Modi at the [facility] at some point. - Will follow Thank you for allowing me to participate in the cardiovascular care of this patient. Please do not hesitate to contact me with questions or concerns.
[2017-05-13] MEDS ORDERED: Castor Oil (Pharmaceutic Aid)* 118 ML BTL PO ONE (18:00)
[2017-05-13] MEDS ORDERED: Potassium Chlor TAB* 20 MEQ TAB.ER PO ONE (23:00)
--- NOTE | 2017-05-13 23:19 | PN ---
PROGRESS NOTE: DATE OF VISIT: 05/13/17 HISTORY: Mr. Kasper is doing quite better than yesterday. He is diuresed approximately 6 L overnight at a rate of between 400 and 500 cc/h. He has not had any orthostatic dizziness when he has got out of bed and ambulated in the intensive care unit. He has refused a Parra catheter and prefers to void on his own and even though he is having to do that every hour I do not mind, but he is getting very little sleep. He feels significantly better. The weight on his chest, which he was noting yesterday seems to be gone. His appetite is better. He is eating better. He has not had a bowel movement. His blood pressure is 125/71 with a pulse of 83. His chest is clear. The heart revealed a regular rhythm. His periorbital edema has resolved. He still has bilateral pedal edema approximately 2+, but it is improved. His white count is 6,000, hemoglobin of 9.4. His potassium is down to 3.3, but hopefully that will be better as he eats better. His level of acidosis is stable with a total CO2 of 19. His creatinine is stable at 4.75. His albumin is up at 2.4. Generally speaking, I am quite pleased with his response to the albumin infusion and the furosemide infusion. Hopefully, his potassium will improve. I do not think at this level we need to buffer his acidosis much. I would be a little reluctant to give him sodium bicarbonate because of the sodium load. We might be able to get away with giving him some Bicitra, but I am do not think is really necessary at present, especially since things are improving quite nicely. I have discussed the case in depth with Dr. Rodriguez. IMPRESSION: 1. Nephrotic syndrome. 2. Amyloidosis. 3. [id number] renal insufficiency. [id number]/[facility] #: [id number] [facility]ITAL[facility]ennifer
[2017-05-14] MEDS: FUROSEMIDE IV SCH ×6 (00:11→22:48)
[2017-05-14] MEDS: NS 0.9% IV SCH ×6 (00:11→22:48)
[2017-05-14] MEDS: Albumin Human 25%* 12.5 GM/50 ML BTL IV SCH ×4 (01:00→13:37)
[2017-05-14] MEDS: Heparin VIAL(*) 5000 UNITS/ML VIAL (FIVE THOUSAND) SUBCUT SCH ×3 (05:37→21:44)
[2017-05-14 05:47] LABS: ABS Basophils 0.1 10^3/ul (0-0.2); ABS Eosinophils 0.1 10^3/ul (0-0.6); ABS Lymphocytes 1.2 10^3/ul (1.0-4.8); ABS Monocytes 0.9 10^3/ul (0-0.8); ABS Neutrophils 3.1 10^3/ul (1.5-7.7); ABS Nucleated RBC 0 10^3/ul; Eosinophil % 2.7 % (0-6); Hematocrit 25 % (42-52); Hemoglobin 8.8 g/dl (14.0-18.0); Lymphocyte % 22.9 % (25-47); Mean Corpuscular HGB Conc 35 g/dl (31-36); Mean Corpuscular Hemoglobin 35 pg (27-31); Mean Corpuscular Volume 98 fL (80-94); Mean Platelet Volume 9 um3 (7.4-10.4); Nucleated Red Blood Cells % 0.2; Platelet Count 265 10^3/ul (150-450); Red Blood Count 2.56 10^6/ul (4.0-5.4); Red Cell Distribution Width 18 % (10.5-15); White Blood Count 5.4 10^3/ul (3.5-10.8)
[2017-05-14 05:57] LABS: EGFR Non-African American 12.7 (>60)
[2017-05-14] MEDS ORDERED: Castor Oil (Pharmaceutic Aid)* 118 ML BTL PO ONE (08:30)
[2017-05-14] MEDS ORDERED: Potassium Chloride IV* 40 MEQ in NS 0.9% 250 ML* 250 ML IVPB ONE (09:00)
[2017-05-14] MEDS ORDERED: NS 0.9% IVPB ONE ×2 (09:00)
[2017-05-14] MEDS ORDERED: MAGNESIUM SULFATE IVPB ONE ×2 (09:00)
[2017-05-14] MEDS ORDERED: Magnesium Sulfate 1 GM IV* 1 GM/100 ML BAG IV ONE (09:00)
[2017-05-14] MEDS ORDERED: KCL 10 MEQ/50 ML IVPREMIX* 10 MEQ/50 ML BAG IV SCH (09:00)
[2017-05-14] MEDS ORDERED: POTASSIUM CHLORIDE IVPB ONE ×2 (09:00)
[2017-05-14] MEDS ORDERED: Magnesium Sulfate 2 GM IV IVPB ONE (09:00)
[2017-05-14] MEDS: ValACYclovir (*) 500 MG TAB PO SCH ×2 (09:13→21:44)
[2017-05-14] MEDS: Magnesium Oxide TAB* 400 MG PO SCH ×2 (09:13→21:38)
[2017-05-14] MEDS: HYDROcodone/ACETAMIN 5-325 MG* 1 TAB PO PRN ×3 (09:13→19:27)
[2017-05-14] MEDS: Aspirin EC Low Dose* 81 MG TAB.EC PO SCH (09:13)
--- NOTE | 2017-05-14 10:50 | PN ---
Progress Note - Progress Note Date of Service: 05/14/17 SOAP: Subjective: []Still feeling better. Up frequently to urinate. Has been eating better, had a good breakfast. Still has constipation. Did have BM yesterday. Runs if Vtac on monitor, no symptoms. No chest pain. Acetaminophen (Tylenol Tab*) 650 mg PO Q4H PRN PRN Reason: FEVER/PAIN Hydrocodone Bitart/Acetaminophen ([place] 5-325 Tab*) 2 tab PO Q4H PRN PRN Reason: PAIN Last Admin: 05/14/17 09:13 Dose: 2 tab Aspirin (Aspirin Ec Low Dose*) 81 mg PO DAILY [facility] Last Admin: 05/14/17 09:13 Dose: 81 mg Heparin Sodium (Porcine) (Heparin Vial(*)) 5,000 units SUBCUT Q8HR [facility] Last Admin: 05/14/17 05:37 Dose: 5,000 units Albumin Human (Albumin Human 25%*) 12.5 gm in 50 mls @ 12 mls/hr IV Q4H [facility] PRN Reason: Protocol Last Admin: 05/14/17 09:21 Dose: 12 mls/hr Potassium Chloride 40 meq/Magnesium Sulfate 3 gm/ Sodium Chloride 500 mls @ 125 mls/hr IVPB ONCE ONE Stop: 05/14/17 12:59 Last Admin: 05/14/17 09:17 Dose: 125 mls/hr Furosemide 250 mg/ Sodium (Chloride) 250 mls @ 40 mls/hr IV 0330,0930,1530, 2130 [facility] PRN Reason: Protocol Last Admin: 05/14/17 09:49 Dose: 40 mls/hr Magnesium Oxide (Magox 400 Tab*) 400 mg PO BID [facility] Last Admin: 05/14/17 09:13 Dose: 400 mg Ondansetron HCl (Zofran Inj*) 4 mg IV Q4H PRN PRN Reason: NAUSEA/VOMITING Ondansetron HCl (Zofran Tab*) 4 mg PO Q4HR PRN PRN Reason: NAUSEA/VOMITING Potassium Chloride (Klor Con Er Tab*) 20 meq PO BID [facility] Prochlorperazine (Compazine Tab*) 10 mg PO Q6H PRN PRN Reason: NAUSEA/VOMITING Trimethoprim/Sulfamethoxazole (Bactrim Ds 800/160 Tab*) 1 tab PO MoWeFr@0900 [facility] Last Admin: 05/12/17 11:40 Dose: 1 tab Valacyclovir HCl (Valtrex 500 Mg (*)) 500 mg PO BID [facility] PRN Reason: Protocol Last Admin: 05/14/17 09:13 Dose: 500 mg Objective: [] Vital Signs Temp Pulse Resp BP Pulse Ox 98.5 F 90 16 116/63 95 05/14/17 05:06 05/14/17 05:06 05/14/17 09:13 05/14/17 05:06 05/14/17 05:06 Gen: sitting up and more alert HEENT: mucosa moist Neck edema CTA S1S2 decreased sounds obese, diffuse abd wall edema +3 SAHUN 3.5L out yesterday. 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 He has had a serologic response with serum lambda from 33 to 6 but with continued nephrotic syndrome. 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 Plan: []1. Renal Failure. Will continue with albumin infusion to raise intravascular pressure and dieresis. Remained net negative yesterheck stress test to rule out overlying CAD. I hope that symptoms will improve with improved fluid balance. 3. GI. Eating better. 2. Cardiac. VTAC this am. - Will replete K 40 bola IV and Mg 3 gm IV, recheck 1600 - K-dur 20 mg po bid - Discussed with Dr. Ball - Continue telmetry. 4. Amyloidosis. Would like to continue his chemotherapy as it is the only path forward. Treatment due on Monday. 24 hr urine for protein pending today. 5. Disp. Expect hospital stay through early next week.
--- NOTE | 2017-05-14 12:44 | PN ---
Subjective Date of Service: 05/14/17 Interval History: f/u CHF Patient continues excellent diuresis Feels much better no dyspnea on limited activity, chest discomfort, or lightheadedness Had asymptomatic 17 beat NSVT with sinus beat followed by another 17 beat, AV dissociation noted. Patient was awake and asymptomatic during this. K 3.3 and mg 1.8 during this now being replaced. Medications Active Medications: Acetaminophen (Tylenol Tab*) 650 mg PO Q4H PRN PRN Reason: FEVER/PAIN Hydrocodone Bitart/Acetaminophen ([place] 5-325 Tab*) 2 tab PO Q4H PRN PRN Reason: PAIN Last Admin: 05/14/17 09:13 Dose: 2 tab Aspirin (Aspirin Ec Low Dose*) 81 mg PO DAILY [facility] Last Admin: 05/14/17 09:13 Dose: 81 mg Heparin Sodium (Porcine) (Heparin Vial(*)) 5,000 units SUBCUT Q8HR [facility] Last Admin: 05/14/17 05:37 Dose: 5,000 units Albumin Human (Albumin Human 25%*) 12.5 gm in 50 mls @ 12 mls/hr IV Q4H [facility] PRN Reason: Protocol Last Admin: 05/14/17 09:21 Dose: 12 mls/hr Potassium Chloride 40 meq/Magnesium Sulfate 3 gm/ Sodium Chloride 500 mls @ 125 mls/hr IVPB ONCE ONE Stop: 05/14/17 12:59 Last Admin: 05/14/17 09:17 Dose: 125 mls/hr Furosemide 250 mg/ Sodium (Chloride) 250 mls @ 40 mls/hr IV 0330,0930,1530, 2130 [facility] PRN Reason: Protocol Last Admin: 05/14/17 09:49 Dose: 40 mls/hr Magnesium Oxide (Magox 400 Tab*) 400 mg PO BID [facility] Last Admin: 05/14/17 09:13 Dose: 400 mg Metoprolol Succinate (Toprol Xl Tab*) 25 mg PO DAILY [facility] Ondansetron HCl (Zofran Inj*) 4 mg IV Q4H PRN PRN Reason: NAUSEA/VOMITING Ondansetron HCl (Zofran Tab*) 4 mg PO Q4HR PRN PRN Reason: NAUSEA/VOMITING Potassium Chloride (Klor Con Er Tab*) 20 meq PO BID [facility] Prochlorperazine (Compazine Tab*) 10 mg PO Q6H PRN PRN Reason: NAUSEA/VOMITING Trimethoprim/Sulfamethoxazole (Bactrim Ds 800/160 Tab*) 1 tab PO MoWeFr@0900 [facility] Last Admin: 05/12/17 11:40 Dose: 1 tab Valacyclovir HCl (Valtrex 500 Mg (*)) 500 mg PO BID [facility] PRN Reason: Protocol Last Admin: 05/14/17 09:13 Dose: 500 mg Objective Vital Signs: Temp Pulse Resp BP Pulse Ox 98.0 F 91 16 99/61 97 05/14/17 11:17 05/14/17 11:17 05/14/17 11:17 05/14/17 11:17 05/14/17 11:17 Oxygen Devices in Use Now: None Appearance: pleasant, chronically ill and fatigued appearing Neck: Trachea Midline, - Respiratory: Clear to Auscultation - mild increased work of breathing Cardiovascular: RRR - distant, no obvious murmur or extra heart sounds, has edema of legs 3+ and abdominal wall., - - + jvd Abdominal: - - soft, no rigidity Extremities: No Clubbing, Cyanosis, - - 3+ edema legs Skin: No Rash or Ulcers Neurological: Alert and Oriented x 3 Laboratory Results: 05/14/17 05:30 05/14/17 05:30 mg 1.8 Total Bilirubin 0.30 mg/dL (0.2-1.0) 05/14/17 05:30 AST 12 U/L (13-39) L 05/14/17 05:30 ALT 20 U/L (7-52) 05/14/17 05:30 Alkaline Phosphatase 370 U/L (34-104) H 05/14/17 05:30 CK-MB (CK-2) 3.8 ng/mL (0.6-6.3) 05/11/17 10:09 B-Natriuretic Peptide 534 pg/mL (-100) H 05/11/17 10:09 Total Protein 4.4 g/dL (6.4-8.9) L 05/14/17 05:30 Albumin 2.5 g/dL (3.2-5.2) L 05/14/17 05:30 Globulin 1.9 g/dL (2-4) L 05/14/17 05:30 Albumin/Globulin Ratio 1.3 (1-3) 05/14/17 05:30 TSH 2.36 mcIU/mL (0.34-5.60) 05/11/17 10:09 05/11/17 05/11/17 05/11/17 10:09 12:56 15:35 Troponin I 0.26 H* 0.25 H* 0.25 H* Diagnostic Imaging: CT 03/06/2017 indication chest pain: No pulmonary lesions CXR 05/11/2017: No acute disease, normal sized cardiac silhouette EKG today NSR, low limb lead and precordial voltage, diffuse T wave inversions except aVR and v1-v3 EKG Data: Echo 04/20/2017 (reviewed): IVS ~ 2.0 cm, LPW ~ 1.8 cm (severe LVH), LVEF normal , normal RV size and function (thickness not well evaluated) e/e' 12, LA indexed volume ~ 35 (mildly dilated), normal estimated PASP Assessment/Plan Edgardo Kasper is a 47 year old man admitted with symptomatic volume overload in the setting of 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 Had NSVT asymptomatic in setting of K 3.3 and mg 1.8 - Continue IV diuresis, keep K and Mg replaced to 4 and 2 respectively - Start toprol 25 mg po daily, holding parameters sbp < 90 mmHg (ordered) - continue aspirin and dvt prophylaxis - Patient would benefit from a non-urgent consultation with a heart failure specialist Thank you for allowing me to participate in the cardiovascular care of this patient. Please do not hesitate to contact me with questions or concerns.
[2017-05-14] MEDS: Metoprolol Succinate XL TAB* 25 MG PO SCH (14:06)
[2017-05-14] MEDS: Potassium Chlor TAB* 20 MEQ TAB.ER PO SCH ×2 (14:06→21:38)
[2017-05-14 16:22] LABS: EGFR Non-African American 12.6 (>60)
[2017-05-14] MEDS: Albumin Human 25%* 25 GM/100 ML BTL IV SCH (17:37)
[2017-05-15] MEDS: Albumin Human 25%* 25 GM/100 ML BTL IV SCH ×3 (00:44→16:14)
[2017-05-15] MEDS: HYDROcodone/ACETAMIN 5-325 MG* 1 TAB PO PRN ×4 (00:50→22:03)
[2017-05-15] MEDS: NS 0.9% IV SCH ×2 (05:30→12:03)
[2017-05-15] MEDS: FUROSEMIDE IV SCH ×2 (05:30→12:03)
[2017-05-15] MEDS: Heparin VIAL(*) 5000 UNITS/ML VIAL (FIVE THOUSAND) SUBCUT SCH ×3 (05:33→21:12)
[2017-05-15] MEDS: Metoprolol Succinate XL TAB* 25 MG PO SCH ×2 (08:32→21:22)
[2017-05-15] MEDS: ValACYclovir (*) 500 MG TAB PO SCH ×2 (08:33→21:12)
[2017-05-15] MEDS: Magnesium Oxide TAB* 400 MG PO SCH ×2 (08:33→21:11)
[2017-05-15] MEDS: Aspirin EC Low Dose* 81 MG TAB.EC PO SCH (08:33)
[2017-05-15] MEDS: Sulfamethox/Trimethoprim DS 800/160* TAB PO SCH (08:33)
[2017-05-15] MEDS: Potassium Chlor TAB* 20 MEQ TAB.ER PO SCH ×3 (08:33→21:12)
[2017-05-15 10:52] LABS: ABS Basophils 0.1 10^3/ul (0-0.2); ABS Eosinophils 0.1 10^3/ul (0-0.6); ABS Lymphocytes 1.4 10^3/ul (1.0-4.8); ABS Neutrophils 3.6 10^3/ul (1.5-7.7); ABS Nucleated RBC 0 10^3/ul; Eosinophil % 2.2 % (0-6); Hematocrit 26 % (42-52); Hemoglobin 8.9 g/dl (14.0-18.0); Lymphocyte % 22.9 % (25-47); Mean Corpuscular HGB Conc 34 g/dl (31-36); Mean Corpuscular Hemoglobin 34 pg (27-31); Mean Corpuscular Volume 100 fL (80-94); Mean Platelet Volume 9 um3 (7.4-10.4); Nucleated Red Blood Cells % 0.4; Platelet Count 269 10^3/ul (150-450); Red Blood Count 2.61 10^6/ul (4.0-5.4); Red Cell Distribution Width 18 % (10.5-15); White Blood Count 6.2 10^3/ul (3.5-10.8)
[2017-05-15 11:03] LABS: EGFR Non-African American 12.3 (>60)
[2017-05-15] MEDS ORDERED: FUROSEMIDE IV SCH (13:00)
[2017-05-15] MEDS ORDERED: NS 0.9% IV SCH (13:00)
[2017-05-15] MEDS ORDERED: Metolazone TAB* 5 MG PO ONE (18:30)
[2017-05-15] MEDS ORDERED: Furosemide IV* 10 MG/ML 10 ML VIAL (100 MG) IV ONE (19:00)
--- NOTE | 2017-05-15 19:08 | PN ---
Progress Note - Progress Note Date of Service: 05/15/17 SOAP: Subjective: []Back pain. Feeling fine otherwise. Continues to urinate frequently. Eating well. No fevers. No chest pain or palpitations. Acetaminophen (Tylenol Tab*) 650 mg PO Q4H PRN PRN Reason: FEVER/PAIN Hydrocodone Bitart/Acetaminophen ([place] 5-325 Tab*) 2 tab PO Q4H PRN PRN Reason: PAIN Last Admin: 05/15/17 12:09 Dose: 2 tab Aspirin (Aspirin Ec Low Dose*) 81 mg PO DAILY [facility] Last Admin: 05/15/17 08:33 Dose: 81 mg Furosemide (Lasix Iv*) 120 mg IV ONCE ONE Stop: 05/15/17 19:01 Heparin Sodium (Porcine) (Heparin Vial(*)) 5,000 units SUBCUT Q8HR [facility] Last Admin: 05/15/17 13:49 Dose: 5,000 units Magnesium Oxide (Magox 400 Tab*) 400 mg PO BID [facility] Last Admin: 05/15/17 08:33 Dose: 400 mg Metoprolol Succinate (Toprol Xl Tab*) 25 mg PO BID [facility] Ondansetron HCl (Zofran Inj*) 4 mg IV Q4H PRN PRN Reason: NAUSEA/VOMITING Ondansetron HCl (Zofran Tab*) 4 mg PO Q4HR PRN PRN Reason: NAUSEA/VOMITING Potassium Chloride (Klor Con Er Tab*) 20 meq PO TID [facility] Last Admin: 05/15/17 13:49 Dose: 20 meq Prochlorperazine (Compazine Tab*) 10 mg PO Q6H PRN PRN Reason: NAUSEA/VOMITING Trimethoprim/Sulfamethoxazole (Bactrim Ds 800/160 Tab*) 1 tab PO MoWeFr@0900 [facility] Last Admin: 05/15/17 08:33 Dose: 1 tab Valacyclovir HCl (Valtrex 500 Mg (*)) 500 mg PO BID [facility] PRN Reason: Protocol Last Admin: 05/15/17 08:33 Dose: 500 mg Objective: [] Vital Signs Temp Pulse Resp BP Pulse Ox 98.3 F 92 16 109/55 97 05/15/17 16:30 05/15/17 18:15 05/15/17 16:30 05/15/17 18:15 05/15/17 18:15 decreased UO, question of if true drop or if he is not saving all urine. 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 He has had a serologic response with serum lambda from 33 to 6 but with continued nephrotic syndrome. Admitted after progressive hypoalbunemia and with CHF. Case discussed extensively with Dr. 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 He has risk of VTAC and cardiac arrest, little data for life vest and AICD indicated only if prognosis is over a year, that is difficult to determine at this time. 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 He is at high risk of from his disease. Next step in treatment is evaluation at an amyloid center, [place] is nearest. Goal is transplant, possible multi organ but he may not survive to transplant. The hope is that further diaeresis will improve both renal and cardiac function. Plan: []1. Renal Failure. No on IV lasix and off albumin drip. Will check daily weight and try and track I/O. Follow albumin daily weight 3. GI. Eating better, encouraged high calorie and high protein diet. 2. Cardiac. VTAC discussed with Dr. Ball. - Will replete K and Mg aggressively to 4.0 and 2.0. Will follow closely as outpatient. - K-dur 20 mg po tid and Mag Oxide 400 bid today - No plans for life vest or AICD at this time. 4. Amyloidosis. Treat chemotherapy tomorrow. He can take his own Cytoxan, will give Dex and bortezomid. Will send referral to [place] tomorrow and start working on visit while he is in house. time with patient and chart was 50 min today
[2017-05-16 05:26] LABS: ABS Basophils 0.1 10^3/ul (0-0.2); ABS Eosinophils 0.1 10^3/ul (0-0.6); ABS Lymphocytes 1.6 10^3/ul (1.0-4.8); ABS Neutrophils 3.4 10^3/ul (1.5-7.7); ABS Nucleated RBC 0 10^3/ul; Eosinophil % 2.1 % (0-6); Hematocrit 25 % (42-52); Hemoglobin 8.7 g/dl (14.0-18.0); Lymphocyte % 25.9 % (25-47); Mean Corpuscular HGB Conc 35 g/dl (31-36); Mean Corpuscular Hemoglobin 35 pg (27-31); Mean Corpuscular Volume 100 fL (80-94); Mean Platelet Volume 9 um3 (7.4-10.4); Nucleated Red Blood Cells % 0.1; Platelet Count 274 10^3/ul (150-450); Red Blood Count 2.53 10^6/ul (4.0-5.4); Red Cell Distribution Width 18 % (10.5-15); White Blood Count 6.3 10^3/ul (3.5-10.8)
[2017-05-16 05:30] LABS: EGFR Non-African American 11.2 (>60)
[2017-05-16] MEDS: Heparin VIAL(*) 5000 UNITS/ML VIAL (FIVE THOUSAND) SUBCUT SCH ×3 (05:35→22:50)
[2017-05-16] MEDS: HYDROcodone/ACETAMIN 5-325 MG* 1 TAB PO PRN ×4 (05:35→23:06)
[2017-05-16] MEDS: Metoprolol Succinate XL TAB* 25 MG PO SCH ×2 (08:03→22:49)
[2017-05-16] MEDS: ValACYclovir (*) 500 MG TAB PO SCH ×2 (08:03→22:48)
[2017-05-16] MEDS: Aspirin EC Low Dose* 81 MG TAB.EC PO SCH (08:04)
[2017-05-16] MEDS: Potassium Chlor TAB* 20 MEQ TAB.ER PO SCH ×3 (08:04→22:49)
[2017-05-16] MEDS: Magnesium Oxide TAB* 400 MG PO SCH ×2 (08:04→22:49)
[2017-05-16] MEDS ORDERED: Potassium Chlor TAB* 20 MEQ TAB.ER PO ONE (11:25)
[2017-05-16] MEDS ORDERED: Dexamethasone TAB* 4 MG PO ONE (14:00)
[2017-05-16] MEDS ORDERED: CYCLOPHOSPHAMIDE 50 MG PO ONE (14:00)
[2017-05-16] MEDS ORDERED: Bortezomib* 2.5 MG/ML **FOR SQ USE** (3.5 MG VIAL) SUBCUT ONE (14:00)
[2017-05-16] MEDS ORDERED: BORTEZOMIB SUBCUT ONE ×4 (14:00)
[2017-05-17] MEDS: Heparin VIAL(*) 5000 UNITS/ML VIAL (FIVE THOUSAND) SUBCUT SCH ×2 (06:16→13:50)
[2017-05-17] MEDS: HYDROcodone/ACETAMIN 5-325 MG* 1 TAB PO PRN ×4 (06:21→20:57)
[2017-05-17 07:05] LABS: ABS Basophils 0 10^3/ul (0-0.2); ABS Eosinophils 0 10^3/ul (0-0.6); ABS Lymphocytes 0.6 10^3/ul (1.0-4.8); ABS Monocytes 0.5 10^3/ul (0-0.8); ABS Nucleated RBC 0 10^3/ul; Eosinophil % 0 % (0-6); Hematocrit 25 % (42-52); Hemoglobin 8.6 g/dl (14.0-18.0); Lymphocyte % 3.9 % (25-47); Mean Corpuscular HGB Conc 34 g/dl (31-36); Mean Corpuscular Hemoglobin 34 pg (27-31); Mean Corpuscular Volume 102 fL (80-94); Mean Platelet Volume 9 um3 (7.4-10.4); Nucleated Red Blood Cells % 0; Platelet Count 294 10^3/ul (150-450); Red Cell Distribution Width 19 % (10.5-15); White Blood Count 15.1 10^3/ul (3.5-10.8)
[2017-05-17 07:17] LABS: EGFR Non-African American 9.6 (>60)
[2017-05-17] MEDS: Aspirin EC Low Dose* 81 MG TAB.EC PO SCH (09:35)
[2017-05-17] MEDS: ValACYclovir (*) 500 MG TAB PO SCH ×2 (09:35→20:57)
[2017-05-17] MEDS: Metoprolol Succinate XL TAB* 25 MG PO SCH ×2 (09:35→20:57)
[2017-05-17] MEDS: Magnesium Oxide TAB* 400 MG PO SCH ×2 (09:35→20:57)
[2017-05-17] MEDS: Sulfamethox/Trimethoprim DS 800/160* TAB PO SCH (09:35)
--- NOTE | 2017-05-17 10:31 | PN ---
Progress Note - Progress Note Date of Service: 05/17/17 SOAP: Subjective: [Subjectively improving. Little no dyspnea with minimal activity. Edema improved since admission. No c/o CP. Still voiding regularly. Diuresis has been held at this time. No Vtach in 24h. Received CyBorD treatment yesterday and tolerated well. Has no complaints this am.] Objective: [ Acetaminophen (Tylenol Tab*) 650 mg PO Q4H PRN PRN Reason: FEVER/PAIN Hydrocodone Bitart/Acetaminophen ([place] 5-325 Tab*) 2 tab PO Q4H PRN PRN Reason: PAIN Last Admin: 05/17/17 06:21 Dose: 2 tab Aspirin (Aspirin Ec Low Dose*) 81 mg PO DAILY [facility] Last Admin: 05/17/17 09:35 Dose: 81 mg Heparin Sodium (Porcine) (Heparin Vial(*)) 5,000 units SUBCUT Q8HR [facility] Stop: 05/17/17 20:00 Last Admin: 05/17/17 06:16 Dose: 5,000 units Magnesium Oxide (Magox 400 Tab*) 400 mg PO BID [facility] Last Admin: 05/17/17 09:35 Dose: 400 mg Metoprolol Succinate (Toprol Xl Tab*) 25 mg PO BID [facility] Last Admin: 05/17/17 09:35 Dose: 25 mg Ondansetron HCl (Zofran Inj*) 4 mg IV Q4H PRN PRN Reason: NAUSEA/VOMITING Ondansetron HCl (Zofran Tab*) 4 mg PO Q4HR PRN PRN Reason: NAUSEA/VOMITING Prochlorperazine (Compazine Tab*) 10 mg PO Q6H PRN PRN Reason: NAUSEA/VOMITING Trimethoprim/Sulfamethoxazole (Bactrim Ds 800/160 Tab*) 1 tab PO MoWeFr@0900 [facility] Last Admin: 05/17/17 09:35 Dose: 1 tab Valacyclovir HCl (Valtrex 500 Mg (*)) 500 mg PO BID [facility] PRN Reason: Protocol Last Admin: 05/17/17 09:35 Dose: 500 mg Laboratory Results - last 24 hr 05/17/17 05/17/17 06:50 06:50 WBC 15.1 H RBC 2.50 L Hgb 8.6 L Hct 25 L MCV 102 H MCH 34 H MCHC 34 RDW 19 H Plt Count 294 MPV 9 Neut % (Auto) 92.4 H Lymph % (Auto) 3.9 L [place] % (Auto) 3.5 Eos % (Auto) 0 Baso % (Auto) 0.2 Absolute Neuts (auto) 14.0 H Absolute Lymphs (auto) 0.6 L Absolute Monos (auto) 0.5 Absolute Eos (auto) 0 Absolute Basos (auto) 0 Absolute Nucleated RBC 0 Nucleated RBC % 0 Sodium 132 L Potassium 5.0 Chloride 106 Carbon Dioxide 15 L Anion Gap 11 BUN 63 H Creatinine 6.22 H Est GFR ( Amer) 12.4 Est GFR (Non-Af Amer) 9.6 BUN/Creatinine Ratio 10.1 Glucose 147 H Calcium 8.3 L Magnesium 2.1 Vital Signs: Temp Pulse Resp BP Pulse Ox 98.3 F 86 18 104/57 97 05/17/17 07:31 05/17/17 07:31 05/17/17 09:33 05/17/17 07:31 05/17/17 07:31 Assessment: []47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 He has had a serologic response with serum lambda from 33 to 6 but with continued nephrotic syndrome. Admitted after progressive hypoalbunemia and with CHF. Case discussed extensively with Dr. Ball and he has cardiac amyloid with evidence of decompensated heart failure and elevated troponin without ACS. Plan: []1. Renal Failure. Cr continues to climb, but still voiding regularly - plan to start dialysis per Dr Hannon - Further diuretics have been held at this time - Dialysis catheter to be placed tomorrow am with IR with dialysis to follow Mon or Mon 2. Amyloid heart with acute diastolic HF and Vtach - Dyspnea improved with diuresis but complicated by worsening renal function - Diuresis held at this time with dialysis pending - No Vtach in 24 hrs - goal for K >4.0 and Mg >2.0 - Discuss LifeVest with cardiology at time of discharge 4. Amyloidosis. Received CyBorD yesterday (05/16). Tolerated well. Next step in treatment is evaluation at an amyloid center, [place] is nearest. Goal is transplant, possible multi organ but he may not survive to transplant. The hope is that further diuresis will improve both renal and cardiac function. dispo: OH home with referral to [place] after dialysis has been initiated (maybe Monday)
--- NOTE | 2017-05-17 11:13 | PN ---
PROGRESS NOTE: DATE OF SERVICE: 05/16/17 HISTORY OF PRESENT ILLNESS: Mr. Kasper's diuresis has slowed down somewhat. Last night, I stopped his albumin infusion and gave him a large dose of intravenous Lasix. From the I and O, he looks like he had a very good diuresis. From his weight, it does not appear that he had a good response at all. Nevertheless, he continues to feel better. He thinks his urine volume has trailed off somewhat. He is not short of breath, he has no orthopnea. His appetite is considerably better. He has had some diarrhea. His blood pressure is 103/52 with a pulse of 86. Respirations are 18. Of significance, his creatinine has been rising in the last few days as we continued to diurese him. I think this is not worsening of renal function, but really unmasking the effect of dilution on his serum creatinine as we diuresed him down. His weight is down about 9 kg since I began to diurese him. His edema level is improved as well. His metabolic acidosis is actually slightly improved. He maintains a low grade anemia. I think it is likely that we are going to need to proceed on with dialysis in him. He and I had a long discussion today about the change in his renal function and the potential need for dialysis. I did describe the procedure to him and the need for vascular access. I described the complications including bleeding, infection, fluid and electrolyte shifts etc. He would be willing to proceed if necessary. He will be receiving his chemotherapy again today. At present, we cannot see that he has had a significant benefit with regard to his proteinuria. His protein in the urine has gone up to 36,968; however, that was measured at the time that he was on his albumin infusion and so, he would not be able to conserve all the albumin we were giving him. There is a question as to whether or not he is going to be discharged today, if so, he is going to contact my office tomorrow and we will be watching his renal function closely as an outpatient and deciding on when to put a dialysis catheter in. I have discussed the case at length with Dr. Mendoza. [id number]/[facility] #: [id number] MELLISA
[2017-05-18 06:05] LABS: Hematocrit 20 % (42-52); Mean Corpuscular HGB Conc 35 g/dl (31-36); Mean Corpuscular Hemoglobin 35 pg (27-31); Mean Corpuscular Volume 101 fL (80-94); Mean Platelet Volume 9.2 um3 (7.4-10.4); Platelet Count 257 10^3/ul (150-450); Red Blood Count 2.01 10^6/ul (4.0-5.4); Red Cell Distribution Width 20 % (10.5-15)
[2017-05-18 06:12] LABS: INR 0.94 (0.77-1.02)
[2017-05-18 06:20] LABS: EGFR Non-African American 8.6 (>60)
[2017-05-18 06:51] LABS: ABS Basophils 0 10^3/ul (0-0.2); ABS Eosinophils 0 10^3/ul (0-0.6); ABS Lymphocytes 2.3 10^3/ul (1.0-4.8); ABS Monocytes 2.2 10^3/ul (0-0.8); ABS Neutrophils 8.4 10^3/ul (1.5-7.7); ABS Nucleated RBC 0 10^3/ul; Eosinophil % 0.3 % (0-6); Lymphocyte % 17.8 % (25-47); Nucleated Red Blood Cells % 0
[2017-05-18] MEDS: Magnesium Oxide TAB* 400 MG PO SCH ×2 (08:59→20:53)
[2017-05-18] MEDS: Metoprolol Succinate XL TAB* 25 MG PO SCH ×2 (08:59→20:32)
[2017-05-18] MEDS: Aspirin EC Low Dose* 81 MG TAB.EC PO SCH (09:00)
[2017-05-18] MEDS: ValACYclovir (*) 500 MG TAB PO SCH ×2 (09:00→20:53)
--- NOTE | 2017-05-18 10:28 | PN ---
Progress Note - Progress Note Date of Service: 05/18/17 SOAP: Subjective: []Feeling worse today then yesterday. Overnight felt more SOB and then clammy and cold, per his report his VS were stable. Upon waking just felt more full and worried he is filling up. Denies real difficulty breathing now. Wants to sit upright but slips down in bed. No other complaints, though admits he is worried about his strength and going home. Lives with his supportive fiance who "is a great caregiver", but worried about his independence. Aware of need for eval. at [place], though is pending d/c and says he will need help with transport, etc. Not sure he "is at the point" of needing a life vest (external defibrillator) and appears caught off guard with discussion of possibility after d/c. Very appreciative of the care he is receiving, "the nurses here are excellent and my doctors are superb." Denies specific needs and states good understanding of plan of care. Medications: Acetaminophen (Tylenol Tab*) 650 mg PO Q4H PRN PRN Reason: FEVER/PAIN Hydrocodone Bitart/Acetaminophen ([place] 5-325 Tab*) 2 tab PO Q4H PRN PRN Reason: PAIN Last Admin: 05/17/17 20:57 Dose: 2 tab Aspirin (Aspirin Ec Low Dose*) 81 mg PO DAILY [facility] Last Admin: 05/18/17 09:00 Dose: 81 mg Magnesium Oxide (Magox 400 Tab*) 400 mg PO BID [facility] Last Admin: 05/18/17 08:59 Dose: 400 mg Metoprolol Succinate (Toprol Xl Tab*) 25 mg PO BID [facility] Last Admin: 05/18/17 08:59 Dose: 25 mg Ondansetron HCl (Zofran Inj*) 4 mg IV Q4H PRN PRN Reason: NAUSEA/VOMITING Ondansetron HCl (Zofran Tab*) 4 mg PO Q4HR PRN PRN Reason: NAUSEA/VOMITING Prochlorperazine (Compazine Tab*) 10 mg PO Q6H PRN PRN Reason: NAUSEA/VOMITING Trimethoprim/Sulfamethoxazole (Bactrim Ds 800/160 Tab*) 1 tab PO MoWeFr@0900 [facility] Last Admin: 05/17/17 09:35 Dose: 1 tab Valacyclovir HCl (Valtrex 500 Mg (*)) 500 mg PO BID [facility] PRN Reason: Protocol Last Admin: 05/18/17 09:00 Dose: 500 mg Objective: [] Vital Signs Temp Pulse Resp BP Pulse Ox 97.7 F 92 18 101/48 97 05/18/17 07:27 05/18/17 07:27 05/18/17 07:28 05/18/17 07:27 05/18/17 07:27 Laboratory Results - last 24 hr 05/16/17 05/18/17 05/18/17 17:15 05:19 05:32 WBC RBC Hgb Hct MCV MCH MCHC RDW Plt Count MPV Neut % (Auto) Lymph % (Auto) [place] % (Auto) Eos % (Auto) Baso % (Auto) Absolute Neuts (auto) Absolute Lymphs (auto) Absolute Monos (auto) Absolute Eos (auto) Absolute Basos (auto) Absolute Nucleated RBC Nucleated RBC % INR (Anticoag Therapy) APTT Sodium 133 Potassium 4.3 Chloride 104 Carbon Dioxide 17 L Anion Gap 12 H BUN 115 H Creatinine 6.84 H Est GFR ( Amer) 11.1 Est GFR (Non-Af Amer) 8.6 BUN/Creatinine Ratio 16.8 Glucose 120 H POC Glucose (mg/dL) 109 H Calcium 7.9 L Magnesium 2.2 Hepatitis B Antibody Not immune A Hep Bs Antigen Nonreactive Hep Bs Antibody, Quant < 3.10 Hepatitis C Antibody Nonreactive 05/18/17 05/18/17 05:32 05:32 WBC 13.0 H RBC 2.01 L Hgb 7.0 L Hct 20 L MCV 101 H MCH 35 H MCHC 35 RDW 20 H Plt Count 257 MPV 9.2 Neut % (Auto) 64.8 Lymph % (Auto) 17.8 L [place] % (Auto) 16.8 H Eos % (Auto) 0.3 Baso % (Auto) 0.3 Absolute Neuts (auto) 8.4 H Absolute Lymphs (auto) 2.3 Absolute Monos (auto) 2.2 H Absolute Eos (auto) 0 Absolute Basos (auto) 0 Absolute Nucleated RBC 0 Nucleated RBC % 0 INR (Anticoag Therapy) 0.94 APTT 29.5 Sodium Potassium Chloride Carbon Dioxide Anion Gap BUN Creatinine Est GFR ( Amer) Est GFR (Non-Af Amer) BUN/Creatinine Ratio Glucose POC Glucose (mg/dL) Calcium Magnesium Hepatitis B Antibody Hep Bs Antigen Hep Bs Antibody, Quant Hepatitis C Antibody Assessment: []47 yo male with advanced amyloidosis complicated by heart failure and subsequent renal failure now diuresed and plan for hemodialysis. Plan: []1. Renal failure: dialysis catheter to be placed today, dialysis planned for tomorrow as per Dr. Hannon - Hep panel negative 2. CHF: avoid diuresis today pending dialysis, provide recliner in room - 3 days since last VT, question of life vest on hold until outpatient 3. Weakness: multifactoral, however will eval. with PT/OT in terms of going home 4. Amyloidosis: will need evaluation in [place] once d/c'd, however will likely be another several weeks until stable with dialysis, I will discuss with our outpatient team support for getting there - for now cont. Marie as scheduled, has f/u /c Dr. Rodriguez 05/31 in [place]
[2017-05-18] MEDS ORDERED: fentaNYL* 50 MCG/ML 5 ML VIAL (250 MCG VIAL) ONE (10:59)
[2017-05-18] MEDS ORDERED: Midazolam* 1 MG/ML 10 ML VIAL (10 MG) ONE (11:00)
[2017-05-18] MEDS: HYDROcodone/ACETAMIN 5-325 MG* 1 TAB PO PRN (16:03)
--- NOTE | 2017-05-18 17:47 | RAD ---
CPT II Codes: 6045F Procedures performed: Placement of a right internal jugular vein tunneled hemodialysis catheter with ultrasound and fluoroscopic guidance. Date of service: May 18, 2017 Indication for procedure: Renal failure Comparison: CT of the chest dated March 06, 2017 Contrast: None Fluoroscopy Time: 1 minute and 5 seconds Vessels Accessed: Percutaneous access was obtained with ultrasound guidance in the right internal jugular vein towards the cavoatrial junction. Anesthesia: Conscious sedation with IV Fentanyl and Versed as well as local 1% lidocaine injected locally at the venotomy site. Conscious sedation time: Timeout: 1210 hours Case end: 1257 hours Total conscious sedation time: 47 minutes Additional medications: Ancef 1 gram IV. Heparin 100 units per mL injected into each catheter lumen according to policy checker's recommendation. Procedure narration and imaging findings: In the holding area prior to entering the angiography suite, the risks, benefits and alternative therapies of the procedure were discussed with the patient and informed consent was obtained. Preoperative ultrasound of the right internal jugular vein demonstrated the vein to patent and compressible. Final Finisher images were saved. The patient was placed in the supine position in the fluoroscopy suite and the neck and upper chest was prepped and draped according to standard sterile protocol. A formal time out was performed by Dr. Albrecht in the presence of the IR staff and all agreed on the patient, procedure and laterality. The skin overlying the jugular vein and upper chest was anesthetized with 1% lidocaine. Real time ultrasound imaging shows the internal jugular vein is patent and determined to be adequate for catheter placement. Utilizing real time ultrasound visualization the internal jugular vein was accessed with an 18 gauge needle. An image was recorded and saved confirming appropriate intraluminal position of the needle tip. Blood return further confirmed position. Through the needle and under fluoroscopic control a 0.035 inch guidewire was advanced below the diaphragm into the IVC confirming appropriate venous access. An image of the wire in the IVC was recorded. The wire tip was then positioned in the cavoatrial junction and the length of intravascular wire was measured. Then the percutaneous catheter exit site was selected at the upper chest appropriate for the tip-to-cuff and tip-to-hub lengths. Over the access wire the internal jugular venotomy was serially dilated culminating with placement of the peel away sheath. A skin mabel was created at the previously selected upper chest skin exit site and the catheter was tunnelled subcutaneously with a blunt tunnelling device from the skin mabel to the venotomy site. The tunnelling device was removed and the catheter was advanced into the peel away sheath under fluoroscopic control. The sheath was peeled away and the catheter tip was pulled back so that it terminated approximately at the cavoatrial junction. Each lumen of the catheter was tested for adequate blood flow, flushed with sterile saline and finally filled with an appropriate volume of 100 units/mL of Heparin according to the device specifications. A fluoroscopic image was saved demonstrating appropriate position of the entire length of the hemodialysis catheter. The venotomy site was sutured closed with a single buried absorbable suture. A "purse string" suture was tied around the upper chest catheter exit site with non-absorbable suture. The catheter was secured to the skin with additional non-absorbable sutures. The venotomy and catheter exit site were dressed with sterile gauze and Tegaderm. The patient tolerated the procedure well and left the fluoroscopy suite in stable condition for one hour of observation prior to discharge. SUMMARY OF PROCEDURE, IMAGING FINDINGS AND INTERVENTIONS PERFORMED: 1. Diagnostic studies performed: * Venous access was obtained at the right internal jugular vein in the antegrade direction (i.e. towards the heart) with ultrasound guidance. A sonographic image was recorded. 2. Interpretation of diagnostic studies performed: * Evaluation of the venotomy site with sonography demonstrated the vessel to be patent and adequately sized for catheter placement. 3. Surgical interventions performed: * Placement of a right internal jugular vein 16-Indonesian, 23 cm tip to cuff AngioDynamics BioFlo Duramax tunneled hemodialysis catheter with ultrasound and fluoroscopic guidance. 4. Interpretation of interventions performed: * Final fluoroscopic image demonstrates the catheter to be in appropriate position with the catheter tips at the cavoatrial junction. PLAN: 1. The hemodialysis catheter may be accessed immediately for hemodialysis. 2. The "pursestring" suture tied around the catheter exit site should be removed 5-7 days post procedure. If this cannot be done at the hemodialysis center please refer the patient back to Interventional Radiology for suture removal.
[2017-05-19 06:02] LABS: Hematocrit 18 % (42-52); Hemoglobin 6.1 g/dl (14.0-18.0); Mean Corpuscular HGB Conc 35 g/dl (31-36); Mean Corpuscular Hemoglobin 36 pg (27-31); Mean Corpuscular Volume 102 fL (80-94); Mean Platelet Volume 9.4 um3 (7.4-10.4); Platelet Count 224 10^3/ul (150-450); Red Blood Count 1.72 10^6/ul (4.0-5.4); Red Cell Distribution Width 21 % (10.5-15); White Blood Count 8.2 10^3/ul (3.5-10.8)
[2017-05-19 06:12] LABS: EGFR Non-African American 7.9 (>60)
[2017-05-19 06:30] LABS: ABS Basophils 0.1 10^3/ul (0-0.2); ABS Eosinophils 0 10^3/ul (0-0.6); ABS Lymphocytes 1.6 10^3/ul (1.0-4.8); ABS Monocytes 1.5 10^3/ul (0-0.8)
[2017-05-19 06:34] LABS: Monocytes % 16 % (0-7)
[2017-05-19] MEDS ORDERED: Midazolam* 1 MG/ML 5 ML VIAL (5 MG) ONE (12:37)
[2017-05-19] MEDS: Sulfamethox/Trimethoprim DS 800/160* TAB PO SCH (14:20)
[2017-05-19] MEDS: Magnesium Oxide TAB* 400 MG PO SCH ×2 (14:20→21:07)
[2017-05-19] MEDS: Metoprolol Succinate XL TAB* 25 MG PO SCH ×2 (14:20→21:06)
[2017-05-19] MEDS: ValACYclovir (*) 500 MG TAB PO SCH ×2 (14:20→21:07)
[2017-05-19] MEDS: Aspirin EC Low Dose* 81 MG TAB.EC PO SCH (14:21)
--- NOTE | 2017-05-19 16:51 | CONS ---
CONSULTATION REPORT: DATE OF CONSULT: 05/19/17 REQUESTING PHYSICIAN: Dr. Mendoza. INDICATION: Hematomas. NARRATIVE: Mr. Kasper is a very pleasant 47-year-old gentleman who was diagnosed with amyloidosis who was admitted to the hospital with renal failure. He had been started on cyclophosphamide. He did vomit after that approximately about a week ago, at which time he thinks it may have been dark. 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 He also was admitted with worsening shortness of breath and anemia. Last night, he did vomit again after being admitted to the hospital and the nurse noted that there were coffee grounds in the vomitus. The patient denies taking any nonsteroidals. He has mild nausea, but no abdominal pain. His stools, again he is color blind, cannot tell whether or not they are black or red or brown. PAST MEDICAL HISTORY: Significant for amyloidosis with resulting renal failure , morbid obesity, back pain. He does have an EF of 55% to 60%. He has moderate to severe ventricular hypertrophy and diastolic dysfunction. MEDICATIONS: Include: 1. Cyclophosphamide. 2. Velcade. 3. Dexamethasone. 4. Zofran. 5. Compazine. 6. Bactrim. 7. Valacyclovir. FAMILY HISTORY: He denies any GI malignancies in the family. SOCIAL HISTORY: Quit smoking many years ago. Rare alcohol. REVIEW OF SYSTEMS: Twelve systems were reviewed, other than that mentioned in the HPI were unremarkable. PHYSICAL EXAM: Temperature is 96.8, blood pressure is 82/48, pulse is 95, respiratory rate of 16. General: Chronically ill-appearing male, in no apparent distress. Alert, oriented, pleasant, fluent. HEENT: Mucous membranes are dry without lesions, ulcers, or exudate. Neck: Supple. Trachea is midline. Head is normocephalic, atraumatic. Heart: Regular rate and rhythm. Lungs: Clear to auscultation. Abdomen is obese. Positive bowel sounds. Soft, nontender, nondistended. No hepatosplenomegaly, masses, rebound or guarding. Skin is warm and dry, slightly tanned and/or darkened. Lymph: No supraclavicular or cervical lymphadenopathy. Psych: Normal affect. Good insight. Good judgement. LABORATORY DATA: Of note, his hemoglobin went from 8.9, down to 8.6, down to 7 yesterday and 6.1 this morning. His white count is 8.2, platelets of 224,000. INR is normal at 0.94. His creatinine is 7.38. Alk phos is 255, ALT is 61, bilirubin is 0.2. ASSESSMENT AND PLAN: A pleasant 47-year-old gentleman with amyloidosis resulting in renal failure who will begin dialysis this morning. Had coffee- ground emesis last night, none since this morning. His hemoglobin has decreased. I do agree with an upper endoscopy. We will need to be very careful with his blood pressure. He denies any nonsteroidals. He could have H. pylori. He could have an ulcer, gastritis, erosive esophagitis, and/or Lana- Mejia tear. I will make arrangements for his EGD later on today. [id number]/[facility] #: [id number] [facility]ITAL[facility]ennifer
[2017-05-19] MEDS: HYDROcodone/ACETAMIN 5-325 MG* 1 TAB PO PRN ×2 (17:34→21:26)
[2017-05-19] MEDS: Omeprazole CAP* 20 MG PO SCH (17:36)
[2017-05-19 18:23] LABS: Hematocrit 18 % (42-52); Hemoglobin 6.5 g/dl (14.0-18.0)
--- NOTE | 2017-05-20 02:34 | PRO ---
CC: Dr. Oquendo * DATE OF PROCEDURE: 05/19/17 - ROOM #452 PROCEDURE: EGD. INDICATION: Hematemesis. REFERRING PHYSICIAN: Dr. Mendoza. MEDICATIONS GIVEN: 3 mg IV Versed, No Demerol. DESCRIPTION OF PROCEDURE: After the EGD procedure including the risks, benefits , and alternatives not limited to perforation, surgery, and/or were explained to Mr. Kasper, written consent was then obtained, IV medication was given and a bite block was placed between the teeth. Olympus pediatric gastroscope was then inserted into the patient's mouth, advanced down the esophagus into the stomach, into the distal duodenum. In the esophagus, the mucosa appeared normal. He did have very mild grade A erosive esophagitis at the distal esophagus. This did not appear to be Lana-Mejia tear, but instead erosive esophagitis. I did advance the scope through the GE junction into the body of the stomach. In the body of the stomach, there was a pangastritis. Numerous petechial hemorrhages. No active bleeding, but slight oozing. The mucosa also was extremely friable. Everywhere when I tried to suction retained water, I would create a slight break in the skin. I tried to limit this as much as I could. Both retroflex and forward views were relatively unremarkable except for the gastritis. No big ulcers were seen. There was absolutely no active bleeding seen at all. I did take a biopsy for H. pylori from the antrum. Scope was advanced through a widely patent pylorus into the duodenal bulb, into the distal duodenum, both of which were unremarkable. I did not see any ulcers in the duodenal bulb. The scope was then withdrawn from the patient. He tolerated the procedure well and was returned to his hospital bed in stable condition. IMPRESSION: 1. Complete upper endoscopy into the distal duodenal with biopsies. 2. Gastritis. Most likely, the cause for his coffee-ground emesis and anemia. No large ulcers were seen. Biopsy for H. pylori. I would like him to start on twice a day PPI to try and heal the gastritis. This was communicated with Dr. Mendoza. [id number]/[facility] #: [id number] [facility]
[2017-05-20 05:56] LABS: ABS Basophils 0.1 10^3/ul (0-0.2); ABS Eosinophils 0 10^3/ul (0-0.6); ABS Lymphocytes 1.8 10^3/ul (1.0-4.8); ABS Monocytes 1.1 10^3/ul (0-0.8); ABS Neutrophils 4.3 10^3/ul (1.5-7.7); ABS Nucleated RBC 0.2 10^3/ul; Eosinophil % 0.5 % (0-6); Hematocrit 18 % (42-52); Hemoglobin 6.3 g/dl (14.0-18.0); Lymphocyte % 25.1 % (25-47); Mean Corpuscular HGB Conc 35 g/dl (31-36); Mean Corpuscular Hemoglobin 34 pg (27-31); Mean Corpuscular Volume 97 fL (80-94); Mean Platelet Volume 9.3 um3 (7.4-10.4); Platelet Count 210 10^3/ul (150-450); Red Blood Count 1.84 10^6/ul (4.0-5.4); Red Cell Distribution Width 23 % (10.5-15); White Blood Count 7.2 10^3/ul (3.5-10.8)
[2017-05-20 06:07] LABS: EGFR Non-African American 8.7 (>60)
[2017-05-20] MEDS: ValACYclovir (*) 500 MG TAB PO SCH ×2 (07:49→22:38)
[2017-05-20] MEDS: Magnesium Oxide TAB* 400 MG PO SCH ×2 (07:49→22:37)
[2017-05-20] MEDS: Omeprazole CAP* 20 MG PO SCH ×2 (07:49→17:15)
[2017-05-20] MEDS: Metoprolol Succinate XL TAB* 25 MG PO SCH ×3 (09:37→22:58)
[2017-05-20] MEDS: HYDROcodone/ACETAMIN 5-325 MG* 1 TAB PO PRN ×3 (09:37→22:36)
[2017-05-21 06:50] LABS: ABS Basophils 0 10^3/ul (0-0.2); ABS Eosinophils 0.1 10^3/ul (0-0.6); ABS Lymphocytes 1.1 10^3/ul (1.0-4.8); ABS Neutrophils 4.9 10^3/ul (1.5-7.7); ABS Nucleated RBC 0.4 10^3/ul; Eosinophil % 0.8 % (0-6); Hematocrit 18 % (42-52); Hemoglobin 6.1 g/dl (14.0-18.0); Lymphocyte % 15.8 % (25-47); Mean Corpuscular HGB Conc 35 g/dl (31-36); Mean Corpuscular Hemoglobin 34 pg (27-31); Mean Corpuscular Volume 98 fL (80-94); Mean Platelet Volume 10.2 um3 (7.4-10.4); Nucleated Red Blood Cells % 6.1; Platelet Count 187 10^3/ul (150-450); Red Blood Count 1.78 10^6/ul (4.0-5.4); Red Cell Distribution Width 22 % (10.5-15); White Blood Count 7.2 10^3/ul (3.5-10.8)
[2017-05-21 07:02] LABS: EGFR Non-African American 7.4 (>60)
[2017-05-21] MEDS: Metoprolol Succinate XL TAB* 25 MG PO SCH ×2 (07:43→22:23)
[2017-05-21] MEDS: Magnesium Oxide TAB* 400 MG PO SCH ×2 (07:44→22:04)
[2017-05-21] MEDS: Omeprazole CAP* 20 MG PO SCH ×2 (07:44→18:07)
[2017-05-21] MEDS: HYDROcodone/ACETAMIN 5-325 MG* 1 TAB PO PRN ×4 (07:44→22:23)
[2017-05-21] MEDS: ValACYclovir (*) 500 MG TAB PO SCH ×2 (13:15→22:03)
[2017-05-22 05:46] LABS: Hematocrit 21 % (42-52); Hemoglobin 7.1 g/dl (14.0-18.0); Mean Corpuscular HGB Conc 35 g/dl (31-36); Mean Corpuscular Hemoglobin 34 pg (27-31); Mean Corpuscular Volume 98 fL (80-94); Mean Platelet Volume 10.1 um3 (7.4-10.4); Platelet Count 191 10^3/ul (150-450); Red Blood Count 2.12 10^6/ul (4.0-5.4); Red Cell Distribution Width 20 % (10.5-15); White Blood Count 7.8 10^3/ul (3.5-10.8)
[2017-05-22 05:47] LABS: ABS Basophils 0 10^3/ul (0-0.2); ABS Eosinophils 0.1 10^3/ul (0-0.6); ABS Lymphocytes 1.5 10^3/ul (1.0-4.8); ABS Monocytes 0.9 10^3/ul (0-0.8); ABS Neutrophils 5.2 10^3/ul (1.5-7.7); ABS Nucleated RBC 0.4 10^3/ul; Eosinophil % 1.1 % (0-6); Lymphocyte % 19.5 % (25-47); Nucleated Red Blood Cells % 5.6
[2017-05-22 06:01] LABS: EGFR Non-African American 6.8 (>60)
[2017-05-22] MEDS: Magnesium Oxide TAB* 400 MG PO SCH ×2 (08:24→20:36)
[2017-05-22] MEDS: Sulfamethox/Trimethoprim DS 800/160* TAB PO SCH (08:24)
[2017-05-22] MEDS: Metoprolol Succinate XL TAB* 25 MG PO SCH ×2 (08:24→20:37)
[2017-05-22] MEDS: Omeprazole CAP* 20 MG PO SCH ×2 (08:24→18:25)
[2017-05-22] MEDS: ValACYclovir (*) 500 MG TAB PO SCH ×2 (08:25→20:36)
[2017-05-22] MEDS ORDERED: Epoetin Alfa* 10,000 UNITS/ML VIAL IV ONE (12:00)
--- NOTE | 2017-05-22 14:03 | PN ---
Hospitalist Progress Note Date of Service: 05/22/17 CAT called to the bedside while Mr. Kasper was on dialysis today. Dialysis nurse called CAT for a period of unresponsiveness after 2.5L fluid removal. THis is Mr. Kasper's second day of dialysis ever. When he became unresponsive , Terra could not obtain a blood pressure, so she started 500cc NS wide open, after which he became responsive and feels okay at this time. He has no complaints, just feels "a little stunned" having woken up to see us in the room. Telemetry was reviewed; he had no arrhythmia at the time of the event. Most recent BP is 90s/40s, he has an unremarkable neuro examination, and he is alert and responds to my questions appropriately. BG is 99. Plan is to abort any further fluid removal on this HD session, recheck his cbc now, discussed with oncology.
[2017-05-22] MEDS: HYDROcodone/ACETAMIN 5-325 MG* 1 TAB PO PRN ×2 (14:18→18:25)
[2017-05-22 15:29] LABS: Hematocrit 21 % (42-52); Hemoglobin 7.5 g/dl (14.0-18.0); Mean Corpuscular HGB Conc 35 g/dl (31-36); Mean Corpuscular Hemoglobin 34 pg (27-31); Mean Corpuscular Volume 97 fL (80-94); Mean Platelet Volume 9.5 um3 (7.4-10.4); Platelet Count 206 10^3/ul (150-450); Red Cell Distribution Width 20 % (10.5-15); White Blood Count 9.8 10^3/ul (3.5-10.8)
--- NOTE | 2017-05-22 16:47 | RAD ---
HISTORY: Left calf pain TECHNIQUE: Multiple transverse and longitudinal ultrasound images were obtained of the veins of the left lower extremity using grayscale, color Doppler, and spectral Doppler imaging with and without compression and with augmentation. FINDINGS: VEINS: The common femoral vein, deep femoral vein, femoral vein and popliteal vein are compressible throughout their course, with normal flow on color Doppler imaging and normal response to augmentation on spectral Doppler imaging. SOFT TISSUES: Grossly normal. No large popliteal fossa cyst was identified. IMPRESSION: No sonographic evidence of deep vein thrombosis.
--- NOTE | 2017-05-22 17:36 | PN ---
Progress Note - Progress Note Date of Service: 05/22/17 SOAP: Subjective: []Pt. seen and examine this AM at start of dialysis. Feeling well though complaint of left calf pain and tenderness. No stomach pains. Breathing fine. Neuropathy seems better though still has tingling in fingers and toes. Lots of questions re: plan of care. Medications: Acetaminophen (Tylenol Tab*) 650 mg PO Q4H PRN PRN Reason: FEVER/PAIN Hydrocodone Bitart/Acetaminophen ([place] 5-325 Tab*) 2 tab PO Q4H PRN PRN Reason: PAIN Last Admin: 05/22/17 14:18 Dose: 2 tab Heparin Sodium (Porcine) (Heparin Flush Picc/Ml/Cvc(*)) 1 - 3 ml FLUSH 0600, 1800 [facility] PRN Reason: Protocol Last Admin: 05/22/17 05:09 Dose: 1 ml Magnesium Oxide (Magox 400 Tab*) 400 mg PO BID [facility] Last Admin: 05/22/17 08:24 Dose: 400 mg Metoprolol Succinate (Toprol Xl Tab*) 25 mg PO BID [facility] Last Admin: 05/22/17 08:24 Dose: 25 mg Omeprazole (Prilosec Cap*) 20 mg PO BID AC [facility] Last Admin: 05/22/17 08:24 Dose: 20 mg Ondansetron HCl (Zofran Inj*) 4 mg IV Q4H PRN PRN Reason: NAUSEA/VOMITING Last Admin: 05/18/17 18:36 Dose: 4 mg Ondansetron HCl (Zofran Tab*) 4 mg PO Q4HR PRN PRN Reason: NAUSEA/VOMITING Prochlorperazine (Compazine Tab*) 10 mg PO Q6H PRN PRN Reason: NAUSEA/VOMITING Trimethoprim/Sulfamethoxazole (Bactrim Ds 800/160 Tab*) 1 tab PO MoWeFr@0900 [facility] Last Admin: 05/22/17 08:24 Dose: 1 tab Valacyclovir HCl (Valtrex 500 Mg (*)) 500 mg PO BID [facility] PRN Reason: Protocol Last Admin: 05/22/17 08:25 Dose: 500 mg Objective: [] Vital Signs Temp Pulse Resp BP Pulse Ox 97.4 F 82 18 111/53 97 05/22/17 07:55 05/22/17 07:55 05/22/17 17:05 05/22/17 07:55 05/22/17 07:55 A&Ox3, EOMI, NASH, neuro grossly non-focal HRR, SR on tele LS clear bilat. +BS, abd. soft and non-tender Left calf tender without erythema or cording noted Right chest tunnel cath benign Laboratory Results - last 24 hr 05/22/17 05/22/17 05/22/17 05:25 05:25 13:26 WBC 7.8 RBC 2.12 L Hgb 7.1 L Hct 21 L MCV 98 H MCH 34 H MCHC 35 RDW 20 H Plt Count 191 MPV 10.1 Neut % (Auto) 67.0 Lymph % (Auto) 19.5 L Loup % (Auto) 12.0 H Eos % (Auto) 1.1 Baso % (Auto) 0.4 Absolute Neuts (auto) 5.2 Absolute Lymphs (auto) 1.5 Absolute Monos (auto) 0.9 H Absolute Eos (auto) 0.1 Absolute Basos (auto) 0 Absolute Nucleated RBC 0.4 Nucleated RBC % 5.6 Sodium 133 Potassium 4.4 Chloride 103 Carbon Dioxide 19 L Anion Gap 11 BUN 101 H Creatinine 8.37 H Est GFR ( Amer) 8.8 Est GFR (Non-Af Amer) 6.8 BUN/Creatinine Ratio 12.1 Glucose 92 POC Glucose (mg/dL) 99 Calcium 7.9 L Phosphorus 8.4 H Magnesium 2.4 05/22/17 15:18 WBC 9.8 RBC 2.20 L Hgb 7.5 L Hct 21 L MCV 97 H MCH 34 H MCHC 35 RDW 20 H Plt Count 206 MPV 9.5 Neut % (Auto) Lymph % (Auto) Loup % (Auto) Eos % (Auto) Baso % (Auto) Absolute Neuts (auto) Absolute Lymphs (auto) Absolute Monos (auto) Absolute Eos (auto) Absolute Basos (auto) Absolute Nucleated RBC Nucleated RBC % Sodium Potassium Chloride Carbon Dioxide Anion Gap BUN Creatinine Est GFR ( Amer) Est GFR (Non-Af Amer) BUN/Creatinine Ratio Glucose POC Glucose (mg/dL) Calcium Phosphorus Magnesium Assessment: []47 yo male with amyloidosis and multi-system failure slowly improving with diuresis and now on dialysis. Course complicated by GI bleed with EGD revealing diffuse gastritis, H&H now stabilized. This AM the plan was for discharge home, however near completion of dialysis he became unresponsive and a CAT team was called, it appears he likely vagaled and responded immediately to a fluid bolus, however as such we will cont. to monitor him overnight. Plan: []1. Monitor overnight, hopeful for d/c tomorrow 2. Dialysis as per Dr. Hannon, // as outpatient 3. Cont. Beta александр 4. Doppler of left LE 5. C2 CyBorD plan to start tomorrow
[2017-05-23] MEDS: Omeprazole CAP* 20 MG PO SCH (07:17)
[2017-05-23] MEDS: ValACYclovir (*) 500 MG TAB PO SCH (08:28)
[2017-05-23] MEDS: Magnesium Oxide TAB* 400 MG PO SCH (08:29)
[2017-05-23 08:58] LABS: ABS Basophils 0.1 10^3/ul (0-0.2); ABS Eosinophils 0.1 10^3/ul (0-0.6); ABS Lymphocytes 1.2 10^3/ul (1.0-4.8); ABS Monocytes 1.1 10^3/ul (0-0.8); ABS Neutrophils 8.4 10^3/ul (1.5-7.7); ABS Nucleated RBC 0.3 10^3/ul; Eosinophil % 0.5 % (0-6); Hematocrit 23 % (42-52); Hemoglobin 7.7 g/dl (14.0-18.0); Lymphocyte % 10.9 % (25-47); Mean Corpuscular HGB Conc 35 g/dl (31-36); Mean Corpuscular Hemoglobin 34 pg (27-31); Mean Corpuscular Volume 99 fL (80-94); Mean Platelet Volume 9.9 um3 (7.4-10.4); Nucleated Red Blood Cells % 2.6; Platelet Count 222 10^3/ul (150-450); Red Blood Count 2.27 10^6/ul (4.0-5.4); Red Cell Distribution Width 20 % (10.5-15); White Blood Count 10.9 10^3/ul (3.5-10.8)
[2017-05-23 09:16] LABS: EGFR Non-African American 8.7 (>60)
[2017-05-23] MEDS ORDERED: Dexamethasone TAB* 4 MG PO ONE (10:00)
[2017-05-23] MEDS: Metoprolol Succinate XL TAB* 25 MG PO SCH (10:09)
[2017-05-23] MEDS ORDERED: BORTEZOMIB SUBCUT ONE ×4 (11:00)
[2017-05-23 11:39] VITALS: BP 106/54
--- NOTE | 2017-05-24 02:05 | DS ---
CC: Dr. Hannon; Dr. Yoshi Ball; Dr. Rodriguez * DISCHARGE SUMMARY: DATE OF ADMISSION: 05/11/17 DATE OF DISCHARGE: 05/23/17 PRIMARY CARE PROVIDER: Dr. Oquendo. PRIMARY ONCOLOGIST: Dr. Carroll Rodriguez. CONSULTING JOURNEYMAN CARPENTER: Dr. Hannon. CONSULTING AIRPORT SKILLED MAINTENANCE SUPERVISOR: Dr. Yoshi Ball. CONSULTING DISTANCE EDUCATION DIRECTOR: Dr. Hood Sarabia. ATTENDING PHYSICIAN: Dr. Donna Santoro.* (DICTATED BY [place]) DISCHARGING PROVIDER: [place] PRIMARY DISCHARGE DIAGNOSES: 1. End-stage renal disease, now requiring dialysis under the direction of Dr. Hanonn secondary to amyloidosis. 2. 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 3. Ventricular tachycardia. 4. Gastrointestinal bleed secondary to gastritis. 5. Amyloidosis - currently receiving Cytoxan, Velcade, and dexamethasone. 6. Chronic back pain. DISCHARGE MEDICATIONS: 1. Acetaminophen 650 mg p.o. q.4 hours as needed for pain. 2. Cyclophosphamide 800 mg p.o. weekly (on Tuesdays). 3. Dexamethasone 40 mg p.o. weekly (Monday). 4. Hydrocodone/acetaminophen 1 tablet p.o. q.4 hours as needed for back pain. 5. Magnesium oxide 400 mg p.o. twice daily. 6. Metoprolol succinate 25 mg p.o. twice daily. 7. Omeprazole 20 mg p.o. twice daily. 8. Zofran 4 mg p.o. q.4 hours as needed for nausea. 9. Compazine 10 mg p.o. q.6 hours as needed for nausea. 10. Bactrim 1 tablet p.o. on Monday, Monday, and Monday for prophylaxis. 11. Valacyclovir 500 mg p.o. twice daily. Medication changes: 1. Start magnesium oxide. 2. Start metoprolol. 3. Start omeprazole. HOSPITAL IMAGIN. Chest x-ray shows no acute disease. 2. Lower extremity Doppler is negative for DVT. HOSPITAL COURSE: This is a 47-year-old gentleman with relatively new diagnosis of amyloidosis and associated renal failure, who presented to the emergency department with complaints of chest pressure and shortness of breath. The patient was initially found to have an elevated troponin to 0.26 and inverted T- waves in lateral leads of uncertain significance. Chest x-ray was unremarkable. The patient complained of associated increasing lower extremity edema and progressive dyspnea. He had recently started treatment under the care of Dr. Rodriguez for his amyloidosis with plans to proceed for stem-cell transplant with an induction therapy of Cytoxan, Velcade, and dexamethasone. Prior to his visit to the emergency department, he had no known cardiac history. Echocardiogram that had been done approximately a week prior demonstrated severe left ventricular hypertrophy, preserved ejection fraction. His repeat troponin remained at a level of approximately 0.2 and this troponin elevation was felt to be likely related to demand ischemia secondary to heart failure rather than acute coronary syndrome. He was evaluated by public safety director, Dr. Yoshi Ball, and diuresis was initiated. His renal function, however, had become progressively worse and at the time of admission, creatinine was up to 4.91. He initially responded to diuretic therapy but creatinine climbed significantly and Dr. Hannon initiated dialysis treatment to help with further fluid removal and support of his renal function. Early on his hospital stay, the patient had significant runs of nonsymptomatic ventricular tachycardia. He was mildly hypokalemic and hypomagnesemic at that time. Electrolytes were repleted and the patient was started on a beta александр , which significantly reduced the frequency of his runs of V-tach. Briefly, discussed the utility of LifeVest and/or implantable ICD, which was decided against in the setting of amyloidosis. The patient's hospital stay was further complicated by a drop in hemoglobin secondary to a GI bleed. Upper endoscopy was completed by Dr. Sarabia, which demonstrated gastritis. The patient was started on a PPI and transfused a total of 3 units of packed red blood cells with his hemoglobin eventually stabilizing and no other complications. The patient received 2 rounds of dialysis during his hospital stay, the first of which was tolerated quite well, the second of which he lost consciousness for a brief period of time after approximately 2.5 L had been taken off. The patient resumed consciousness shortly after initiating a fluid bolus. His blood pressure initially was unable to be read and after a fluid bolus was noted to be hypotensive and he further stabilized from there and his mentation returned to baseline. Thought to potentially be a vagal response due to severe hypotension causing cerebral hypoperfusion. Dialysis was completed but without any further fluid removal and the patient remains asymptomatic. At the time of discharge, the patient is still grossly edematous but has no further respiratory complaints. Has been stable from a cardiac perspective for several days. Of note, the patient did develop a rather significant neuropathy. Unsure if this was related to his treatment or his renal dysfunction. At its worst, the patient was having difficulty manipulating his cell phone, but prior to treatments on 05/23/17, he just had mild numbness sensation, but no impairment of function. DISPOSITION AND FOLLOWUP PLAN: The patient will require a maintenance dialysis catheter in place at the time of discharge. His next dialysis is scheduled for 05/25/17 under the direction of Dr. Hannon. He received 2 treatments of Cytoxan , Velcade, and dexamethasone during his hospital stay, the first on 05/16/17, second on the day of discharge, 05/23/17, and is scheduled for next Monday, 05/14. The patient has been started on a PPI as noted above as well as magnesium supplementation and continue further beta blockade. The patient will be referred to [facility] in [place] for further evaluation for multiorgan transplant. This will be arranged on an outpatient basis. [place] [id number]/[facility] #: [id number] MELLISA
== END 2017-05-23 13:58 | disposition home or self-care (01) | DRG 346 ==
LOC: ED 09:20 → MEDTELE 13:21 → ED 15:10 → ICU 05-12 13:52 → MED 05-14 00:05 → MEDTELE 05-17 10:58
PROVIDERS: ADMIT Internal Medicine Hematology & Oncology; ATTEND Internal Medicine Hematology & Oncology
PROC: 0JHD3XZ Insertion of Tunneled Vascular Access Device into Right Upper Arm Subcutaneous Tissue and Fascia, Percutaneous Approach (ICD-10-PCS; 2017-05-18)
PROC: 05HM33Z Insertion of Infusion Device into Right Internal Jugular Vein, Percutaneous Approach (ICD-10-PCS; 2017-05-18)
PROC: B543ZZA Ultrasonography of Right Jugular Veins, Guidance (ICD-10-PCS; 2017-05-18)
PROC: B513YZA Fluoroscopy of Right Jugular Veins using Other Contrast, Guidance (ICD-10-PCS; 2017-05-18)
PROC: 02HV33Z Insertion of Infusion Device into Superior Vena Cava, Percutaneous Approach (ICD-10-PCS; 2017-05-18)
PROC: 5A1D70Z Performance of Urinary Filtration, Intermittent, Less than 6 Hours Per Day (ICD-10-PCS; principal; 2017-05-19)
PROC: 0DB68ZX Excision of Stomach, Via Natural or Artificial Opening Endoscopic, Diagnostic (ICD-10-PCS; 2017-05-19)
PROC: 30233N1 Transfusion of Nonautologous Red Blood Cells into Peripheral Vein, Percutaneous Approach (ICD-10-PCS; 2017-05-19)
PROC: 5A1D70Z Performance of Urinary Filtration, Intermittent, Less than 6 Hours Per Day (ICD-10-PCS; 2017-05-22)
DX: E85.89 Other amyloidosis (principal); I50.31 Acute diastolic (congestive) heart failure; N18.6 End stage renal disease; K29.71 Gastritis, unspecified, with bleeding; I47.2 Ventricular tachycardia; E74.8 Other specified disorders of carbohydrate metabolism; I24.8 Other forms of acute ischemic heart disease; N17.9 Acute kidney failure, unspecified; N04.9 Nephrotic syndrome with unspecified morphologic changes; K22.10 Ulcer of esophagus without bleeding; M54.9 Dorsalgia, unspecified; I51.7 Cardiomegaly; E87.6 Hypokalemia; E83.42 Hypomagnesemia; I95.9 Hypotension, unspecified; E66.01 Morbid (severe) obesity due to excess calories; H53.50 Unspecified color vision deficiencies; M79.662 Pain in left lower leg; Z99.2 Dependence on renal dialysis; Z87.891 Personal history of nicotine dependence; Z79.899 Other long term (current) drug therapy; Z79.1 Long term (current) use of non-steroidal anti-inflammatories (NSAID); Z68.39 Body mass index [BMI] 39.0-39.9, adult
CPT/HCPCS: 36415; 36558; 71046; 76937; 77001; 80048; 80053; 82550; 82553; 83605; 83735; 83880; 84100; 84156; 84443; 84484; 85014; 85018; 85025; 85027; 85610; 85730; 86480; 86704; 86706; 86803; 86850; 86900; 86901; 86922; 87077; 87340; 87641; 93005; 99156; 99157; 99222; 99231; 99232; 99233; 99239; 99283; A9270-GY; G8978-GP-CI; G8979-GP-CH; G8979-GP-CI; J0885; J1642; J1644; J1940; J2250; J2405; J2785; J3010; J3475; J3480; J8540; J9041; P9040; P9047

== ENCOUNTER 2018-02-07 11:58 | Observation (INO) | payer BC, OTHER ==
--- NOTE | 2018-02-07 12:11 | ED ---
Abdominal Pain/Male - HPI Summary HPI Summary: The pt is a 47 y/o male [facility] c/o coffee-ground emesis since 10: 00 hrs yesterday. He notes nausea, abd pain, pedal edema, and sore throat secondary to emesis, diaphoresis, weakness, lightheadedness, dysphagia and chills but denies loss of appetite, SOB, melena, dizziness, dysuria, SI and constipation. The cramping abd pain is rated 10/10 in severity. He is a current dialysis patient at [facility] on Tuesdays, and Saturdays. He took Zofran yesterday night to no relief. He has been seen two times before in the ED for the same sx. PMHx: ESRD, Gastritis, GI bleeding (April 2017), Chronic back pain. Home Medications Medication Instructions Recorded Confirmed Type Hydrocodone/Acetamin 10/325(NF 1 tab PO Q4HR PRN MDD 6 05/11/17 02/05/18 History [[place] 10/325 (NF)] Gabapentin CAP(*) [Neurontin 100 100 mg PO QAM 10/05/17 02/05/18 History mg CAP(*)] Gabapentin CAP(*) [Neurontin 100 300 mg PO QPM 10/05/17 02/05/18 History mg CAP(*)] Medical Marijuana 10/05/17 History - History of Current Complaint Chief Complaint: EDAbdPain Stated Complaint: VOMITING/GENERAL ILLNESS Hx Obtained From: Patient, Family/Market Research Manager - Domestic female partner Onset/Duration: Gradual Onset, Lasting Days - 1 day, Still Present Timing: Constant Severity Initially: Severe Severity Currently: Severe Pain Intensity: 10 Pain Scale Used: 0-10 Numeric Location: Diffuse Radiates: No Character: Cramping Aggravating Factor(s): Nothing Alleviating Factor(s): Nothing Associated Signs And Symptoms: Positive: Diaphoresis, Nausea, Vomiting. Negative: Dizzy, Back Pain, Constipation, Urinary Symptoms, Decreased Appetite, Diarrhea - Allergies/Home Medications Allergies/Adverse Reactions: Allergies Allergy/AdvReac Type Severity Reaction Status Date / Time No Known Allergies Allergy Verified 02/05/18 13:31 Home Medications: Home Medications Gabapentin CAP(*) [Neurontin 300 CAP(*)] 300 mg PO QPM 02/07/18 [History Confirmed 02/07/18] PMH/Surg Hx/FS Hx/Imm Hx Previously Healthy: No Endocrine/Hematology History: Denies: Hx Diabetes Cardiovascular History: Reports: Hx Angina Denies: Hx Coronary Artery Disease, Hx Hypercholesterolemia, Hx Hypertension , Hx Myocardial Infarction, Hx Peripheral Vascular Disease, Hx Valvular Heart Disease Respiratory History: Denies: Hx Asthma, Hx Chronic Obstructive Pulmonary Disease (COPD) GI History: Reports: Other GI Disorders - GI Bleed- April 2017, Gastritis History: Reports: Hx Chronic Renal Failure, Hx Dialysis, Hx Kidney Stones - , Hx Renal Disease - DIMINISHED GFR Musculoskeletal History: Reports: Hx Back Problems Denies: Hx Osteoporosis Sensory History: Denies: Hx Contacts or Glasses, Hx Hearing Aid Opthamlomology History: Denies: Hx Contacts or Glasses Neurological History: Reports: Other Neuro Impairments/Disorders - PAIN CLINIC PT Denies: Hx Seizures, Hx Transient Ischemic Attacks (TIA) - Cancer History Cancer Type, Location and Year: None reported - Surgical History Surgery Procedure, Year, and Place: Lithotrypsy Infectious Disease History: No Infectious Disease History: Denies: Hx Clostridium Difficile, Traveled Outside the [place] in Last 30 Days - Family History Known Family History: Negative: Cardiac Disease, Hypertension, Diabetes - Social History Occupation: Employed Full-time Lives: With Family Alcohol Use: None Alcohol Amount: maybe once a year Substance Use Type: Reports: None Substance Use Comment - Amount & Last Used: flexeril, hydrocodone Smoking Status (MU): Former Smoker Have You Smoked in the Last Year: No Review of Systems Constitutional: Negative - Dizziness, Other - Lightheadedness Positive: Chills, Skin Diaphoresis ENT: Other - Dysphagia Negative: Shortness Of Breath Gastrointestinal: Negative - Loss of appetite, melena, constipation Positive: Abdominal Pain, Vomiting, Nausea. Negative: Diarrhea Negative: dysuria Positive: Weakness Positive: Other - Negative: SI/HI All Other Systems Reviewed And Are Negative: Yes Physical Exam - Summary Physical Exam Summary: Constitutional: Well-developed, Well-nourished, Alert. (-) Distressed Skin: Warm, Dry mucous membranes HENT: Normocephalic; Atraumatic Eyes: Conjunctiva normal Neck: Musculoskeletal ROM normal neck. (-) JVD, (-) Stridor, (-) Tracheal deviation Cardio: Rhythm regular, rate normal, Heart sounds normal; Intact distal pulses; The pedal pulses are 2+ and symmetric. Radial pulses are 2+ and symmetric. (-) Murmur Pulmonary/Chest wall: Effort normal. (-) Respiratory distress, (-) Wheezes, (-) Rales Abd: Soft, (-) epigastric tenderness, (-) Distension, (-) Guarding, (-) Rebound Musculoskeletal: (-) Edema Lymph: (-) Cervical adenopathy Neuro: Alert, Oriented x3 Psych: Mood and affect Normal Triage Information Reviewed: Yes Vital Signs On Initial Exam: Initial Vitals Temp Pulse Resp BP Pulse Ox 98.2 F 75 18 145/86 96 02/07/18 12:00 02/07/18 12:00 02/07/18 12:00 02/07/18 12:00 02/07/18 12:00 Vital Signs Reviewed: Yes Diagnostics - Vital Signs Vital Signs Temp Pulse Resp BP Pulse Ox 02/07/18 12:00 98.2 F 75 18 145/86 96 - Laboratory Result Diagrams: 02/07/18 12:46 02/07/18 12:46 Lab Statement: Any lab studies that have been ordered have been reviewed, and results considered in the medical decision making process. - Radiology CXR Radiology Interpretation Completed By: Radiologist Summary of Radiographic Findings: IMPRESSION: No radiographic evidence for acute cardiopulmonary abnormality on this portable chest x-ray. The ED physician reviewed this radiology report. - EKG 13:09 Cardiac Rate: NL - 64 bpm EKG Rhythm: Sinus Rhythm EKG Comparison: No Significant Change Summary of EKG Findings: No STEMI Re-Evaluation - Re-Evaluation First Eval Re-Evaluation Time: 15:17 Change: Improved - I performed a rectal exam with a chucking machine operator present and there was no fresh blood. Abdominal Pain Fem Course/Dx - Course Course Of Treatment: A 47 year-old M with a hx of ESRD presents to the ED with a CC of coffee-ground emesis since 10:00 hrs yesterday. He notes nausea, abd pain, pedal edema, and sore throat secondary to emesis, diaphoresis, weakness, lightheadedness, dysphagia and chills but denies loss of appetite, SOB, melena, dizziness, dysuria, SI and constipation. A physical exam revealed dry mucous membranes. A CXR is unremarkable. An EKG is unremarkable. In the ED course, pt was given Lidocaine 2% 15 ml PO, Morphine 4 mg IV, Metoclopramide 10 mg IV and Ondansetron 4 mg IV which improved the symptoms. I discussed the pt with Dr. Reynolds who agreed to evaluate the pt in the ED. I also discussed with Dr. Mendoza(mica miner) who recommended admitting the pt. Patient will be admitted with a final Dx of persistent emesis. Pt is agreeable with this plan. Allergies noted. The patient and his family are not comfortable with discharge. His acute on chronic nausea/vomiting persists. Trend H+H, potential endoscopy tomorrow by GI on observation. - Diagnoses Provider Diagnoses: Emesis, persistent - Provider Notifications Discussed Care Of Patient With: Carol Reynolds - Security Supervisor Time Discussed With Above Provider: 15:18 Instructed by Provider To: MD Will See In ED - 18:25 hrs- I spoke with Dr. Mendoza (Hematology and Oncology).He recommended admiting the pt because he is not in active treatment for his monoclonal gammopathy. Discharge - Sign-Out/Discharge Documenting (check all that apply): Patient Departure - Discharge Plan Condition: Stable Disposition: ADMITTED TO [facility]ISTER MED[facility] - Billing Disposition and Condition Condition: STABLE Disposition: Admitted to [facility] - Attestation Statements Document Initiated by Scribe: Yes Documenting Scribe: Soumya Barone Provider For Whom Lucia is Documenting (Include Credential): Dr. Jared Andre MD Scribe Attestation: Soumya Yousif , scribed for Dr. Jared Andre MD on 02/07/18 at 2127. Scribe Documentation Reviewed: Yes Provider Attestation: The documentation as recorded by the Soumya cheek accurately reflects the service I personally performed and the decisions made by me, Dr. Jared Andre MD Status of Scribe Document: Viewed
[2018-02-07] MEDS ORDERED: Lidocaine 2% VISCOUS* 15 ML UDC PO ONE (12:26)
[2018-02-07] MEDS ORDERED: Ondansetron INJ* 2 MG/ML VIAL IV ONE (12:26)
[2018-02-07] MEDS ORDERED: Morphine VIAL* 4 MG/ML VIAL (1 ml vial) IV ONE (12:33)
--- OUTSIDE RECORDS SUMMARY | 2018-02-07 12:40 | XMS REPORT | Continuity of Care Document ---
:1970 External Reference #:[id number] Author Name Terra Butler Care Team Providers Name Role Phone Jamaal Oquendo III, MD Primary Care Physician Unavailable Payers Type Date Identification Numbers Payment Provider Subscriber Policy Number: [id number] [facility] PayID: [id number] [address] [address] [place] [address] Onset: 2013 Policy Number: [id number] [employer] Vivek Robbins Group Number: [id number] [address] [place]: [place] [address] PayID: [id number] Advance Directives Description No Information Available Problems Date Description Provider Status Onset: 02/25/2017 Nephrotic range proteinuria Esteban Bailey M.D.,[facility] Active Onset: 08/18/2015 Low back pain Jamaal Oquendo M.D. Active Onset: 05/18/2016 Mixed hyperlipidemia Jamaal Oquendo M.D. Active Family History Date Family Member(s) Problem(s) Comments General Diabetes Type II Father Diabetes Type II Mother Peripheral Vascular Disease (PVD) ? arterial stent to her upper arm in her 70s ? HTN Mother Atrial Fibrillation Siblings 2 2 brothers, one with obesity, but otherwise healthy another brother with ETOH issues Social History Type Date Description Comments Sex Unknown Marital Status Single Occupation [employer] Not working due to no light duty being available ETOH Use Denies alcohol use Tobacco Use Start: Unknown End: Patient is a former quit 2009; max Unknown smoker around 1 ppd, began age 24 Recreational Drug Use Denies Drug Use Smoking Status Reviewed: 02/05/18 Patient is a former quit 2009; max smoker around 1 ppd, began age 24 Exercise Type/Frequency Does not exercise Allergies, Adverse Reactions, Alerts Date Description Reaction Status Severity Comments 01/30/2017 Rosuvastatin Calcium muscle pain in legs/sides Active 10/23/2013 NKDA Inactive Medications Medication Date Status Form Strength Qnty SIG Indications Ordering Provider Hydrocodone-Aceta / Active Tablets 10-325mg Take 1 PO Unknown minophen 0000 twice daily Dialysis / Active tues, Unknown 0000 thurs, sat Medical Marijuana / Active prn Unknown 0000 Vitamin D / Active Capsules [id number] Unknown (Ergocalciferol) 0000 Gabapentin / Active Capsules 100mg 100mg in Unknown 0000 morning, 300mg at night Rosuvastatin 10/14/ Hx Tablets 20mg 90tab 1 po daily Jamaal Tejeda Calcium 2016 - in the [facility], 01/29/ evening M.D. 2016 Atorvastatin 07/13/ Hx Tablets 40mg 90tab take 1 E78.2 Jamaal Tejeda Calcium 2016 tablet by [facility], 10/10/ mouth at M.D. 2016 bedtime Cymbalta 01/20/ Hx Caps DR 30mg 7caps 1 by mouth 724.2 Jamaal Tejeda 2013 - Part every day [facility], 04/08/ for the M.D. 2014 first week Cymbalta 01/20/ Hx Caps DR 60mg 30cap 1 by mouth 724.2 Jamaal Tejeda 2013 - Part s every day [facility], 04/08/ M.D. 2014 Tramadol HCL 10/23/ Hx Tablets 50mg 90tab Ran out so 722.52 Abrahan 2013 - not [place], taking. 1 M.D. 2014 by mouth every 6 hours as needed pain Cyclobenzaprine / Hx Tablets 10mg take 1 Unknown HCL 0000 - tablet by mouth 2013 three times a day if needed Oxycodone-Acetami / Hx Tablets 5-325mg take 1 Unknown nophen 0000 - tablet by mouth 2013 every 4 to 6 hours if needed for pain Tizanidine HCL / Hx Capsules 4mg 90cap 1 tab tid Unknown 0000 - s 2014 Cyclobenzaprine / Hx Tablets 10mg Not Taking M54.5 Unknown HCL 0000 - 2016 Gabapentin 00/00/ Hx Capsules 100mg 1 po qhs Unknown 0000 - to start and june 2014 increase as tolerated to 2 po qhs then 1 po qam and 2 po hs, gradually up to 3 tid prn pain Baclofen 0000/ Hx Tablets 1 tab by Unknown 0000 - mouth three 2016 times a day Movantik /00/ Hx Tablets 12.5mg 1 by mouth Unknown 0000 - every day 2017 Dexamethasone /00/ Hx Tablets 4mg 1 by mouth Unknown 0000 - three 08/01/ times a 2017 day Omeprazole 00/ Hx Capsules 20mg 1 cap po Abraham, 0000 - DR twice Amita, daily [employer] 2018 Magnesium Oxide / Hx Tablets 400mg 1 by mouth Unknown 0000 - twice 2017 Metoprolol 00/ Hx Tablets ER 25mg 1 by mouth Unknown Succinate ER 0000 - 24HR daily 2017 Ondansetron HCL 00/ Hx Tablets 4mg one by Unknown 0000 - mouth 2017 hours as needed for nausea Bactrim 00/00/ Hx 1 tablet Unknown 0000 - po Mon,2017 Valacyclovir HCL 00/ Hx Tablets 500mg 1 by mouth Unknown 0000 - twice daily 2017 Chemotherapy /00/ Hx Monday Unknown 0000 - 2017 Immunizations CPT Code Status Date Vaccine Lot # [id number] Given 08/28/2014 Tdap - Tetanus/Diptheria/Acellular Pertussis [id number] Vital Signs Date Vital Result Comment 02/05/2018 3:05pm Height 75 inches 6'3" Weight 285.00 lb Heart Rate 66 /min BP Systolic Sitting 122 mmHg BP Diastolic Sitting 92 mmHg Body Temperature 97.9 F O2 % BldC Oximetry 98 % BMI (Body Mass Index) 35.6 kg/m2 12/05/2017 3:11pm Height 75 inches 6'3" Weight 282.00 lb Heart Rate 77 /min BP Systolic Sitting 122 mmHg BP Diastolic Sitting 88 mmHg O2 % BldC Oximetry 95 % BMI (Body Mass Index) 35.2 kg/m2 10/25/2017 9:56am Height 75 inches 6'3" Weight 283.00 lb Heart Rate 68 /min BP Systolic Sitting 112 mmHg manual cuff large, left arm BP Diastolic Sitting 64 mmHg manual cuff large, left arm BP Systolic Standing 90 mmHg manual cuff large, left arm BP Diastolic Standing 58 mmHg manual cuff large, left arm BMI (Body Mass Index) 35.4 kg/m2 10/05/2017 3:05pm Height 75 inches 6'3" Weight 284.25 lb Heart Rate 82 /min BP Systolic Sitting 132 mmHg BP Diastolic Sitting 80 mmHg O2 % BldC Oximetry 97 % BMI (Body Mass Index) 35.5 kg/m2 08/17/2017 11:31am Height 75 inches 6'3" Weight 272.00 lb Heart Rate 62 /min irregualr BP Systolic Sitting 130 mmHg lue lg cuff BP Diastolic Sitting 72 mmHg lue lg cuff BP Systolic Standing 120 mmHg BP Diastolic Standing 68 mmHg Respiratory Rate 17 /min BMI (Body Mass Index) 34.0 kg/m2 Ejection Fraction 55-60% 04/20/2017 echo 08/02/2017 1:04pm Height 75 inches 6'3" Weight 268.00 lb Heart Rate 88 /min BP Systolic Sitting 127 mmHg BP Diastolic Sitting 88 mmHg Body Temperature 98.1 F O2 % BldC Oximetry 96 % BMI (Body Mass Index) 33.5 kg/m2 06/15/2017 11:23am Height 75 inches 6'3" Weight 306.00 lb with shoes Heart Rate 100 /min reg BP Systolic Sitting 94 mmHg Lue lg cuff BP Diastolic Sitting 70 mmHg Lue lg cuff BP Systolic Standing 72 mmHg Lue lg cuff BP Diastolic Standing 40 mmHg Lue lg cuff Respiratory Rate 16 /min O2 % BldC Oximetry 96 % at room air BMI (Body Mass Index) 38.2 kg/m2 05/30/2017 12:56pm Weight 309.00 lb Heart Rate 90 /min BP Systolic Sitting 88 mmHg BP Diastolic Sitting 48 mmHg O2 % BldC Oximetry 97 % 03/27/2017 2:21pm Weight 322.00 lb Heart Rate 113 /min BP Systolic Sitting 120 mmHg BP Diastolic Sitting 82 mmHg Body Temperature 98.1 F O2 % BldC Oximetry 97 % 01/30/2017 12:56pm Height 76 inches 6'4" Weight 328.00 lb Heart Rate 98 /min BP Systolic Sitting 120 mmHg BP Diastolic Sitting 92 mmHg Body Temperature 99.3 F Pain Level 7 lower back d/t sitting O2 % BldC Oximetry 95 % BMI (Body Mass Index) 39.9 kg/m2 12/12/2016 9:59am Height 76 inches 6'4" Weight 323.00 lb Heart Rate 96 /min BP Systolic Sitting 122 mmHg BP Diastolic Sitting 82 mmHg Body Temperature 97.7 F Pain Level 8 lower back pain, affects sleep, driving position O2 % BldC Oximetry 95 % BMI (Body Mass Index) 39.3 kg/m2 10/11/2016 11:17am Height 76 inches 6'4" Weight 331.00 lb Heart Rate 97 /min BP Systolic Sitting 150 mmHg BP Diastolic Sitting 90 mmHg Body Temperature 99.2 F O2 % BldC Oximetry 94 % BMI (Body Mass Index) 40.3 kg/m2 08/05/2016 12:09pm Weight 336.25 lb Heart Rate 101 /min BP Systolic 132 mmHg BP Diastolic 80 mmHg O2 % BldC Oximetry 96 % 07/13/2016 10:03am Weight 337.00 lb Heart Rate 88 /min BP Systolic Sitting 124 mmHg BP Diastolic Sitting 82 mmHg Respiratory Rate 15 /min Body Temperature 98.0 F O2 % BldC Oximetry 98 % 05/18/2016 11:49am Height 74.5 inches 6'2.50" Weight 345.50 lb Heart Rate 81 /min BP Systolic 150 mmHg BP Diastolic 80 mmHg Body Temperature 98.8 F O2 % BldC Oximetry 94 % BMI (Body Mass Index) 43.8 kg/m2 03/22/2016 9:41am Height 74.5 inches 6'2.50" Weight 344.25 lb Heart Rate 94 /min BP Systolic 138 mmHg BP Diastolic 90 mmHg Body Temperature 99.5 F BMI (Body Mass Index) 43.6 kg/m2 01/19/2016 9:01am Height 74.5 inches 6'2.50" Weight 341.50 lb Heart Rate 98 /min BP Systolic 130 mmHg BP Diastolic 80 mmHg Body Temperature 99.2 F O2 % BldC Oximetry 97 % BMI (Body Mass Index) 43.3 kg/m2 11/24/2015 8:57am Height 74.5 inches 6'2.50" Weight 340.00 lb Heart Rate 95 /min BP Systolic 142 mmHg BP Diastolic 97 mmHg Body Temperature 98.5 F Pain Level 8 BMI (Body Mass Index) 43.1 kg/m2 10/13/2015 2:14pm Height 74.5 inches 6'2.50" Weight 338.00 lb Heart Rate 89 /min BP Systolic Sitting 136 mmHg BP Diastolic Sitting 88 mmHg Pain Level 9 O2 % BldC Oximetry 97 % BMI (Body Mass Index) 42.8 kg/m2 08/18/2015 10:24am Weight 338.00 lb Heart Rate 66 /min BP Systolic Sitting 139 mmHg BP Diastolic Sitting 86 mmHg Body Temperature 98.1 F Pain Level 7 06/18/2015 9:51am Weight 342.00 lb Heart Rate 85 /min BP Systolic Sitting 147 mmHg BP Diastolic Sitting 85 mmHg Body Temperature 98.0 F Pain Level 8 05/07/2015 9:35am Height 74.5 inches 6'2.50" Weight 337.00 lb Heart Rate 83 /min BP Systolic Sitting 126 mmHg BP Diastolic Sitting 82 mmHg Pain Level 8 lower back O2 % BldC Oximetry 98 % BMI (Body Mass Index) 42.7 kg/m2 03/26/2015 10:12am Height 74.5 inches 6'2.50" Weight 330.00 lb Heart Rate 92 /min BP Systolic 141 mmHg BP Diastolic 90 mmHg Body Temperature 98.6 F O2 % BldC Oximetry 96 % BMI (Body Mass Index) 41.8 kg/m2 02/12/2015 10:12am Weight 320.00 lb Heart Rate 89 /min BP Systolic Sitting 150 mmHg BP Diastolic Sitting 80 mmHg Body Temperature 96.6 F 01/01/2015 10:24am Height 74.5 inches 6'2.50" Weight 315.00 lb Heart Rate 85 /min BP Systolic Sitting 138 mmHg BP Diastolic Sitting 86 mmHg Body Temperature 98.6 F Pain Level 9 middle lower back & L leg O2 % BldC Oximetry 98 % BMI (Body Mass Index) 39.9 kg/m2 11/27/2014 10:46am Height 74.5 inches 6'2.50" Weight 315.00 lb Heart Rate 88 /min BP Systolic Sitting 132 mmHg BP Diastolic Sitting 84 mmHg Body Temperature 98.0 F O2 % BldC Oximetry 97 % BMI (Body Mass Index) 39.9 kg/m2 10/16/2014 11:23am Height 74.5 inches 6'2.50" Weight 317.00 lb Heart Rate 89 /min BP Systolic Sitting 134 mmHg BP Diastolic Sitting 82 mmHg Pain Level 9 O2 % BldC Oximetry 98 % BMI (Body Mass Index) 40.2 kg/m2 08/28/2014 9:09am Height 74.5 inches 6'2.50" Weight 320.75 lb Heart Rate 91 /min BP Systolic Sitting 126 mmHg BP Diastolic Sitting 82 mmHg Pain Level 7 O2 % BldC Oximetry 95 % BMI (Body Mass Index) 40.6 kg/m2 07/17/2014 10:59am Height 74.5 inches 6'2.50" Weight 331.00 lb Heart Rate 90 /min BP Systolic Sitting 128 mmHg BP Diastolic Sitting 82 mmHg O2 % BldC Oximetry 97 % BMI (Body Mass Index) 41.9 kg/m2 06/05/2014 2:44pm Height 74.5 inches 6'2.50" Weight 343.00 lb Heart Rate 103 /min BP Systolic Sitting 138 mmHg BP Diastolic Sitting 82 mmHg Body Temperature 99.5 F O2 % BldC Oximetry 96 % BMI (Body Mass Index) 43.4 kg/m2 04/08/2014 1:22pm Weight 336.75 lb Heart Rate 84 /min BP Systolic Sitting 146 mmHg BP Diastolic Sitting 98 mmHg Body Temperature 98.9 F 01/20/2014 10:37am Height 74.5 inches 6'2.50" Weight 324.00 lb Heart Rate 104 /min BP Systolic Sitting 144 mmHg BP Diastolic Sitting 91 mmHg Body Temperature 99.0 F O2 % BldC Oximetry 96 % BMI (Body Mass Index) 41.0 kg/m2 10/23/2013 9:17am Height 75.5 inches 6'3.50" Weight 324.00 lb Heart Rate 98 /min BP Systolic Sitting 144 mmHg lg BP Diastolic Sitting 100 mmHg lg Pain Level 7 back BMI (Body Mass Index) 40.0 kg/m2 Results Test Date Facility Test Result H/L Range Note CBC Auto Diff 12/15/2017 [facility] White Blood 7.6 10^3/uL N 3.5-10.[address] [place] [address] [phone] Red Blood Count 3.65 10^6/uL Low 4.00-5.40 Hemoglobin 12.5 g/dL Low 14.0-18.0 Hematocrit 37 % Low 42-52 Mean Corpuscular Volume 100 fL High 80-94 Mean Corpuscular Hemoglobin 34 pg High 27-31 Mean Corpuscular HGB Conc 34 g/dL N 31-36 Red Cell Distribution Width 13 % N 10.5-15 Platelet Count 193 10^3/uL N 150-450 Mean Platelet Volume 8.7 um3 N 7.4-10.4 Abs Neutrophils 4.9 10^3/uL N 1.5-7.7 Abs Lymphocytes 1.3 10^3/uL N 1.0-4.8 Abs Monocytes 0.6 10^3/uL N 0-0.8 Abs Eosinophils 0.7 10^3/uL High 0-0.6 Abs Basophils 0.1 10^3/uL N 0-0.2 Abs Nucleated RBC 0 10^3/uL Granulocyte % 64.0 % N 38-83 Lymphocyte % 17.4 % Low 25-47 Monocyte % 7.7 % High 0-7 Eosinophil % 9.4 % High 0-6 Basophil % 1.5 % N 0-2 Nucleated Red Blood Cells % 0.1 Comp Metabolic Panel 12/15/2017 [facility] Sodium 140 mmol/L N 135-[address] [place], [place] [id number] [phone] Potassium 4.6 mmol/L N 3.5-5.0 Chloride 100 mmol/L Low 101-111 Co2 Carbon Dioxide 30 mmol/L N 22-32 Anion Gap 10 mmol/L N 2-11 Glucose 109 mg/dL High 70-100 Blood Urea Nitrogen 30 mg/dL High 6-24 Creatinine 8.24 mg/dL High 0.67-1.17 BUN/Creatinine Ratio 3.6 Low 8-20 Calcium 9.2 mg/dL N 8.6-10.3 Total Protein 6.2 g/dL Low 6.4-8.9 Albumin 4.0 g/dL N 3.2-5.2 Globulin 2.2 g/dL N 2-4 Albumin/Globulin Ratio 1.8 N 1-3 Total Bilirubin 0.60 mg/dL N 0.2-1.0 Alkaline Phosphatase 325 U/L High 34-104 Alt 26 U/L N 7-52 Ast 23 U/L N 13-39 Egfr Non- 7.0 >60 Egfr 8.4 >60 1 Immunoglobulins 12/15/2017 [facility] Immunoglobulin G 619 Abnormal 767 - 2 Serum Quant [address] mg/dL [address] [place] [address] [phone] Immunoglobulin M 28 mg/dL Abnormal 37 - 286 Immunoglobulin A 130 mg/dL 61 - 356 Laboratory test 12/15/2017 [facility] Factor X 105 % 70 - 150 [address] [place] [address] [phone] [place]/Lambda 12/15/2017 [facility] [place] Free 9.20 Abnormal 4 Free Light [address] Light Chain mg/[place] [address] [phone] Lambda Free Light Chain 6.77 mg/dL Abnormal 5 [place]/Lambda Free Light Chain 1.36 6 CBC Auto Diff 08/23/2017 [facility] White Blood 6.9 10^3/uL N 3.5-10.[address] [place] [address] [phone] Red Blood Count 3.55 10^6/uL Low 4.00-5.40 Hemoglobin 13.2 g/dL Low 14.0-18.0 Hematocrit 38 % Low 42-52 Mean Corpuscular Volume 106 fL High 80-94 7 Mean Corpuscular Hemoglobin 37 pg High 27-31 Mean Corpuscular HGB Conc 35 g/dL N 31-36 Red Cell Distribution Width 14 % N 10.5-15 Platelet Count 237 10^3/uL N 150-450 Mean Platelet Volume 8.0 um3 N 7.4-10.4 Abs Neutrophils 4.9 10^3/uL N 1.5-7.7 Abs Lymphocytes 1.3 10^3/uL N 1.0-4.8 Abs Monocytes 0.6 10^3/uL N 0-0.8 Abs Eosinophils 0.1 10^3/uL N 0-0.6 Abs Basophils 0.1 10^3/uL N 0-0.2 Abs Nucleated RBC 0 10^3/uL Granulocyte % 70.9 % N 38-83 Lymphocyte % 18.1 % Low 25-47 Monocyte % 8.4 % High 0-7 Eosinophil % 1.4 % N 0-6 Basophil % 1.2 % N 0-2 Nucleated Red Blood Cells % 0 Comp Metabolic Panel 08/23/2017 [facility] Sodium 138 mmol/L N 135-[address] [place] [address] [phone] Potassium 3.7 mmol/L N 3.5-5.0 Chloride 101 mmol/L N 101-111 Co2 Carbon Dioxide 24 mmol/L N 22-32 Anion Gap 13 mmol/L High 2-11 Glucose 143 mg/dL High 70-100 Blood Urea Nitrogen 35 mg/dL High 6-24 Creatinine 8.96 mg/dL High 0.67-1.17 BUN/Creatinine Ratio 3.9 Low 8-20 Calcium 8.9 mg/dL N 8.6-10.3 Total Protein 5.3 g/dL Low 6.4-8.9 Albumin 3.4 g/dL N 3.2-5.2 Globulin 1.9 g/dL Low 2-4 Albumin/Globulin Ratio 1.8 N 1-3 Total Bilirubin 0.50 mg/dL N 0.2-1.0 Alkaline Phosphatase 416 U/L High 34-104 Alt 27 U/L N 7-52 Ast 26 U/L N 13-39 Egfr Non- 6.3 >60 Egfr 7.7 >60 8 Laboratory test 08/23/2017 [facility] Coagulation Factor X TNP () [address] [place] [address] [phone] Beta 2 Microglobulin 21.70 g/mL Abnormal 10 [place]/Lambda Free 08/23/2017 [facility] [place] Free 3.42 mg/dL Abnormal 11 Light Chains Ser [address] [place] [address] [phone] Lambda Free Light Chain 3.89 mg/dL Abnormal 12 [place]/Lambda Free Light Chain 0.8792 13 Protein 06/27/2017 [facility] Total 5.1 Abnormal 6.3 - Electrophoresis [address] Protein(Pep) g/dL 7.9 [place] [address] [phone] Albumin 2.4 g/dL Abnormal 3.4-4.7 Alpha-1 Globulin 0.3 g/dL 0.1-0.3 Alpha-2 Globulin 1.2 g/dL Abnormal 0.6-1.0 Beta Globulin 0.9 g/dL 0.7-1.2 Gamma Globulin 0.4 g/dL Abnormal 0.6-1.6 Albumin/Globulin Ratio 0.86 Impression See Comment 14 [place]/Lambda Free 06/27/2017 [facility] [place] Free 3.79 mg/dL Abnormal 15 Light Chains Ser [address] [place] [address] [phone] Lambda Free Light Chain 3.90 mg/dL Abnormal 16 [place]/Lambda Free Light Chain 0.9718 17 CBC Auto Diff 06/27/2017 [facility] White Blood 9.3 10^3/uL N 3.5-10.[address] [place] [address] [phone] Red Blood Count 2.56 10^6/uL Low 4.0-5.4 Hemoglobin 9.9 g/dL Low 14.0-18.0 Hematocrit 29 % Low 42-52 Mean Corpuscular Volume 113 fL High 80-94 Mean Corpuscular Hemoglobin 39 pg High 27-31 Mean Corpuscular HGB Conc 35 g/dL N 31-36 Red Cell Distribution Width 27 % High 10.5-15 18 Platelet Count 242 10^3/uL N 150-450 Mean Platelet Volume 9.0 um3 N 7.4-10.4 Abs Neutrophils 7.4 10^3/uL N 1.5-7.7 Abs Lymphocytes 0.8 10^3/uL Low 1.0-4.8 Abs Monocytes 0.8 10^3/uL N 0-0.8 Abs Eosinophils 0.2 10^3/uL N 0-0.6 Abs Basophils 0.1 10^3/uL N 0-0.2 Abs Nucleated RBC 0 10^3/uL Granulocyte % 79.5 % N 38-83 Lymphocyte % 8.3 % Low 25-47 Monocyte % 9.0 % High 0-7 Eosinophil % 2.1 % N 0-6 Basophil % 1.1 % N 0-2 Nucleated Red Blood Cells % 0 Cell Morphology 06/27/2017 [facility] Anisocytosis 2+ [address] [place] [address] [phone] Immunoglobulins 06/27/2017 [facility] Immunoglobulin G 266 Abnormal 767 - 19 Serum Quant [address] mg/dL [address] [place] [address] [phone] Immunoglobulin M 18 mg/dL Abnormal 37 - 286 Immunoglobulin A 146 mg/dL 61 - 356 Laboratory 06/27/2017 [facility] Beta 2 13.20 Abnormal 20 test finding [address] Microglobulin g/[place] [address] [phone] CBC Auto Diff 06/13/2017 [facility] White Blood Count 7.5 N 3.[address] 10^3/uL -10 [place] [address] .8 [phone] Red Blood Count 2.66 10^6/uL Low 4.0-5.4 Hemoglobin 9.9 g/dL Low 14.0-18.0 Hematocrit 29 % Low 42-52 Mean Corpuscular Volume 109 fL High 80-94 Mean Corpuscular Hemoglobin 37 pg High 27-31 Mean Corpuscular HGB Conc 34 g/dL N 31-36 Red Cell Distribution Width 29 % High 10.5-15 21 Platelet Count 177 10^3/uL N 150-450 Mean Platelet Volume 9.3 um3 N 7.4-10.4 Abs Neutrophils 6.0 10^3/uL N 1.5-7.7 Abs Lymphocytes 1.0 10^3/uL N 1.0-4.8 Abs Monocytes 0.4 10^3/uL N 0-0.8 Abs Eosinophils 0.1 10^3/uL N 0-0.6 Abs Basophils 0 10^3/uL N 0-0.2 Abs Nucleated RBC 0 10^3/uL Granulocyte % 80.3 % N 38-83 Lymphocyte % 13.5 % Low 25-47 Monocyte % 5.0 % N 0-7 Eosinophil % 1.0 % N 0-6 Basophil % 0.2 % N 0-2 Nucleated Red Blood Cells % 0.2 Cell Morphology 06/13/2017 [facility] Anisocytosis 3+ [address] [place] [address] [phone] T[place]well [place] Bodies PRESENT Comp Metabolic Panel 06/13/2017 [facility] Sodium 141 mmol/L N 139-145 [address] [place] [address] [phone] Potassium 3.3 mmol/L Low 3.5-5.0 Chloride 98 mmol/L Low 101-111 Co2 Carbon Dioxide 35 mmol/L High 22-32 Anion Gap 8 mmol/L N 2-11 Glucose 108 mg/dL High 70-100 Blood Urea Nitrogen 10 mg/dL N 6-24 Creatinine 3.26 mg/dL High 0.67-1.17 BUN/Creatinine Ratio 3.1 Low 8-20 Calcium 8.4 mg/dL Low 8.6-10.3 Total Protein 5.4 g/dL Low 6.4-8.9 Albumin 2.9 g/dL Low 3.2-5.2 Globulin 2.5 g/dL N 2-4 Albumin/Globulin Ratio 1.2 N 1-3 Total Bilirubin 0.40 mg/dL N 0.2-1.0 Alkaline Phosphatase 382 U/L High 34-104 Alt 20 U/L N 7-52 Ast 18 U/L N 13-39 Egfr Non- 20.3 >60 Egfr 26.1 >60 22 Laboratory test 06/13/2017 [facility] Magnesium 2.0 mg/dL N 1.9-2.[address] [place] [address] [phone] CBC Auto Diff 06/06/2017 [facility] White Blood 6.2 N 3.5- 10.[address] Count 10^3/[place] [address] [phone] Red Blood Count 2.54 10^6/uL Low 4.0-5.4 Hemoglobin 9.1 g/dL Low 14.0-18.0 Hematocrit 27 % Low 42-52 Mean Corpuscular Volume 105 fL High 80-94 Mean Corpuscular Hemoglobin 36 pg High 27-31 Mean Corpuscular HGB Conc 34 g/dL N 31-36 Red Cell Distribution Width 28 % High 10.5-15 23 Platelet Count 171 10^3/uL N 150-450 Mean Platelet Volume 9.4 um3 N 7.4-10.4 Abs Neutrophils 4.7 10^3/uL N 1.5-7.7 Abs Lymphocytes 0.8 10^3/uL Low 1.0-4.8 Abs Monocytes 0.6 10^3/uL N 0-0.8 Abs Eosinophils 0.1 10^3/uL N 0-0.6 Abs Basophils 0.1 10^3/uL N 0-0.2 Abs Nucleated RBC 0 10^3/uL Granulocyte % 75.7 % N 38-83 Lymphocyte % 13.0 % Low 25-47 Monocyte % 8.9 % High 0-7 Eosinophil % 1.5 % N 0-6 Basophil % 0.9 % N 0-2 Nucleated Red Blood Cells % 0.1 Cell Morphology 06/06/2017 [facility] Anisocytosis 2+ [address] [place] [address] [phone] Comp Metabolic 06/06/2017 [facility] Sodium 140 mmol/L N 139- 145 Panel [address] [place] [address] [phone] Potassium 3.5 mmol/L N 3.5-5.0 Chloride 100 mmol/L Low 101-111 Co2 Carbon Dioxide 34 mmol/L High 22-32 Anion Gap 6 mmol/L N 2-11 Glucose 104 mg/dL High 70-100 Blood Urea Nitrogen 12 mg/dL N 6-24 Creatinine 3.36 mg/dL High 0.67-1.17 BUN/Creatinine Ratio 3.6 Low 8-20 Calcium 8.1 mg/dL Low 8.6-10.3 Total Protein 5.0 g/dL Low 6.4-8.9 Albumin 2.7 g/dL Low 3.2-5.2 Globulin 2.3 g/dL N 2-4 Albumin/Globulin Ratio 1.2 N 1-3 Total Bilirubin 0.30 mg/dL N 0.2-1.0 Alkaline Phosphatase 309 U/L High 34-104 Alt 21 U/L N 7-52 Ast 18 U/L N 13-39 Egfr Non- 19.6 >60 Egfr 25.2 >60 24 Laboratory test 06/06/2017 [facility] Magnesium 1.8 mg/dL Low 1.9-2.7 finding [address] [place] [address] [phone] Comp Metabolic 05/30/2017 [facility] Sodium 137 mmol/L Low 139 -145 Panel [address] [place] [address] [phone] Potassium 3.3 mmol/L Low 3.5-5.0 Chloride 98 mmol/L Low 101-111 Co2 Carbon Dioxide 32 mmol/L N 22-32 Anion Gap 7 mmol/L N 2-11 Glucose 100 mg/dL N 70-100 Blood Urea Nitrogen 24 mg/dL N 6-24 Creatinine 3.90 mg/dL High 0.67-1.17 BUN/Creatinine Ratio 6.2 Low 8-20 Calcium 8.0 mg/dL Low 8.6-10.3 Total Protein 5.0 g/dL Low 6.4-8.9 Albumin 2.6 g/dL Low 3.2-5.2 Globulin 2.4 g/dL N 2-4 Albumin/Globulin Ratio 1.1 N 1-3 Total Bilirubin 0.50 mg/dL N 0.2-1.0 Alkaline Phosphatase 281 U/L High 34-104 Alt 21 U/L N 7-52 Ast 16 U/L N 13-39 Egfr Non- 16.5 >60 Egfr 21.2 >60 25 [place]/Lambda Free 05/30/2017 [facility] [place] Free 2.23 mg/dL Abnormal 26 Light Chains Ser [address] [place] [address] [phone] Lambda Free Light Chain 2.41 mg/dL 27 [place]/Lambda Free Light Chain 0.9253 28 Laboratory test 05/30/2017 [facility] Magnesium 1.9 mg/dL N 1.9-2.[address] [place] [address] [phone] CBC Auto Diff 05/30/2017 [facility] White Blood 6.7 N 3.5- 10.[address] Count 10^3/[place] [address] [phone] Red Blood Count 2.43 10^6/uL Low 4.0-5.4 Hemoglobin 8.6 g/dL Low 14.0-18.0 Hematocrit 25 % Low 42-52 Mean Corpuscular Volume 102 fL High 80-94 Mean Corpuscular Hemoglobin 35 pg High 27-31 Mean Corpuscular HGB Conc 35 g/dL N 31-36 Red Cell Distribution Width 26 % High 10.5-15 Platelet Count 177 10^3/uL N 150-450 Mean Platelet Volume 9.0 um3 N 7.4-10.4 Abs Neutrophils 5.2 10^3/uL N 1.5-7.7 Abs Lymphocytes 0.8 10^3/uL Low 1.0-4.8 Abs Monocytes 0.6 10^3/uL N 0-0.8 Abs Eosinophils 0 10^3/uL N 0-0.6 Abs Basophils 0.1 10^3/uL N 0-0.2 Abs Nucleated RBC 0.1 10^3/uL Granulocyte % 78.7 % N 38-83 Lymphocyte % 11.3 % Low 25-47 Monocyte % 8.6 % High 0-7 Eosinophil % 0.6 % N 0-6 Basophil % 0.8 % N 0-2 Nucleated Red Blood Cells % 0.9 Cell Morphology 05/30/2017 [facility] Macrocytosis 2+ [address] [place] [address] [phone] Anisocytosis 2+ Laboratory test 05/30/2017 [facility] [facility] Pathologist (SEE NOTE) [address] [place] [address] [phone] Laboratory test 05/11/2017 [facility] Troponin-I (TnI) 0.25 ng/ mL High <0.04 [address] [place] [address] [phone] Laboratory test 05/11/2017 [facility] Lactic Acid 1.8 mmol/L N 0.5-2 [address]0 [place] [address] [phone] Laboratory test 05/11/2017 [facility] Troponin-I (TnI) 0.26 ng/ mL High <0.04 [address] [place] [address] [phone] TSH (Thyroid Stim Horm) 2.36 mcIU/mL N 0.34-5.60 CBC Auto 05/11/2017 [facility] White Blood 11.9 10^3/uL High 3.5-10.[address] [place] [address] [phone] Red Blood Count 3.58 10^6/uL Low 4.0-5.4 Hemoglobin 12.0 g/dL Low 14.0-18.0 Hematocrit 35 % Low 42-52 Mean Corpuscular Volume 99 fL High 80-94 Mean Corpuscular Hemoglobin 33 pg High 27-31 Mean Corpuscular HGB Conc 34 g/dL N 31-36 Red Cell Distribution Width 17 % High 10.5-15 Platelet Count 366 10^3/uL N 150-450 Mean Platelet Volume 8 um3 N 7.4-10.4 Abs Neutrophils 9.4 10^3/uL High 1.5-7.7 Abs Lymphocytes 1.3 10^3/uL N 1.0-4.8 Abs Monocytes 1.0 10^3/uL High 0-0.8 Abs Eosinophils 0 10^3/uL N 0-0.6 Abs Basophils 0.1 10^3/uL N 0-0.2 Abs Nucleated RBC 0 10^3/uL Granulocyte % 79.2 % N 38-83 Lymphocyte % 11.3 % Low 25-47 Monocyte % 8.1 % High 0-7 Eosinophil % 0.3 % N 0-6 Basophil % 1.1 % N 0-2 Nucleated Red Blood Cells % 0.1 Laboratory test 05/11/2017 [facility] B-Type 534 pg/mL High [address] [place] [address] Peptide BNP [phone] Comp Metabolic 05/11/2017 [facility] Sodium 137 mmol/L N 133- [address] [place] [address] [phone] Potassium 3.7 mmol/L N 3.5-5.0 Chloride 109 mmol/L N 101-111 Co2 Carbon Dioxide 19 mmol/L Low 22-32 Anion Gap 9 mmol/L N 2-11 Glucose 110 mg/dL High 70-100 Blood Urea Nitrogen 48 mg/dL High 6-24 Creatinine 4.91 mg/dL High 0.67-1.17 BUN/Creatinine Ratio 9.8 N 8-20 Calcium 7.5 mg/dL Low 8.6-10.3 Total Protein 4.2 g/dL Low 6.4-8.9 Albumin 1.8 g/dL Low 3.2-5.2 Globulin 2.4 g/dL N 2-4 Albumin/Globulin Ratio 0.8 Low 1-3 Total Bilirubin 0.30 mg/dL N 0.2-1.0 Alkaline Phosphatase 548 U/L High 34-104 Alt 47 U/L N 7-52 Ast 20 U/L N 13-39 Egfr Non- 12.7 >60 Egfr 16.3 >60 34 CKMB 05/11/2017 [facility] CKMB ng/mL 3.8 ng/mL N 0.6-6.[address] [place] [address] [phone] Laboratory test 05/11/2017 [facility] Magnesium 1.7 mg/dL Low 1.9-2.[address] [place] [address] [phone] Creatine Kinase(CK) 31 U/L N 10-223 CBC Auto Diff 05/09/2017 [facility] White Blood 9.8 10^3/uL N 3.5-10.[address] [place] [address] [phone] Red Blood Count 3.67 10^6/uL Low 4.0-5.4 Hemoglobin 12.6 g/dL Low 14.0-18.0 Hematocrit 36 % Low 42-52 Mean Corpuscular Volume 98 fL High 80-94 Mean Corpuscular Hemoglobin 34 pg High 27-31 Mean Corpuscular HGB Conc 35 g/dL N 31-36 Red Cell Distribution Width 17 % High 10.5-15 Platelet Count 419 10^3/uL N 150-450 Mean Platelet Volume 8 um3 N 7.4-10.4 Abs Neutrophils 7.5 10^3/uL N 1.5-7.7 Abs Lymphocytes 1.5 10^3/uL N 1.0-4.8 Abs Monocytes 0.6 10^3/uL N 0-0.8 Abs Eosinophils 0.2 10^3/uL N 0-0.6 Abs Basophils 0 10^3/uL N 0-0.2 Abs Nucleated RBC 0 10^3/uL Granulocyte % 76.3 % N 38-83 Lymphocyte % 15.3 % Low 25-47 Monocyte % 5.9 % N 0-7 Eosinophil % 2.0 % N 0-6 Basophil % 0.5 % N 0-2 Nucleated Red Blood Cells % 0.2 [place]/Lambda Free 05/09/2017 [facility] [place] Free 2.06 mg/dL Abnormal 35 Light Chains Ser [address] [place] [address] [phone] Lambda Free Light Chain 6.77 mg/dL Abnormal 36 [place]/Lambda Free Light Chain 0.3043 37 Comp Metabolic Panel 05/09/2017 [facility] Sodium 134 mmol/L N 133-[address] [place] [address] [phone] Potassium 3.7 mmol/L N 3.5-5.0 Chloride 109 mmol/L N 101-111 Co2 Carbon Dioxide 17 mmol/L Low 22-32 Anion Gap 8 mmol/L N 2-11 Glucose 116 mg/dL High 70-100 Blood Urea Nitrogen 41 mg/dL High 6-24 Creatinine 4.58 mg/dL High 0.67-1.17 BUN/Creatinine Ratio 9.0 N 8-20 Calcium 7.5 mg/dL Low 8.6-10.3 Total Protein 4.6 g/dL Low 6.4-8.9 Albumin 1.9 g/dL Low 3.2-5.2 Globulin 2.7 g/dL N 2-4 Albumin/Globulin Ratio 0.7 Low 1-3 Total Bilirubin 0.20 mg/dL N 0.2-1.0 Alkaline Phosphatase 633 U/L High 34-104 Alt 37 U/L N 7-52 Ast 25 U/L N 13-39 Egfr Non- 13.7 >60 Egfr 17.6 >60 38 Comp Metabolic Panel 05/02/2017 [facility] Sodium 136 mmol/L N 133-[address] [place] [address] [phone] Potassium 3.8 mmol/L N 3.5-5.0 Chloride 110 mmol/L N 101-111 Co2 Carbon Dioxide 17 mmol/L Low 22-32 Anion Gap 9 mmol/L N 2-11 Glucose 102 mg/dL High 70-100 Blood Urea Nitrogen 39 mg/dL High 6-24 Creatinine 4.87 mg/dL High 0.67-1.17 BUN/Creatinine Ratio 8.0 N 8-20 Calcium 7.6 mg/dL Low 8.6-10.3 Total Protein 4.6 g/dL Low 6.4-8.9 Albumin 1.8 g/dL Low 3.2-5.2 Globulin 2.8 g/dL N 2-4 Albumin/Globulin Ratio 0.6 Low 1-3 Total Bilirubin 0.30 mg/dL N 0.2-1.0 Alkaline Phosphatase 553 U/L High 34-104 Alt 27 U/L N 7-52 Ast 23 U/L N 13-39 Egfr Non- 12.8 >60 Egfr 16.4 >60 39 [place]/Lambda Free 05/02/2017 [facility] [place] Free 1.97 mg/dL Abnormal 40 Light Chains Ser [address] [place] [address] [phone] Lambda Free Light Chain 26.6 mg/dL Abnormal 41 [place]/Lambda Free Light Chain 0.0741 Abnormal 42 CBC Auto 05/02/2017 [facility] White Blood 13.6 10^3/uL High 3.5-10.[address] [place] [address] [phone] Red Blood Count 3.96 10^6/uL Low 4.0-5.4 Hemoglobin 13.3 g/dL Low 14.0-18.0 Hematocrit 38 % Low 42-52 Mean Corpuscular Volume 96 fL High 80-94 Mean Corpuscular Hemoglobin 34 pg High 27-31 Mean Corpuscular HGB Conc 35 g/dL N 31-36 Red Cell Distribution Width 16 % High 10.5-15 Platelet Count 476 10^3/uL High 150-450 Mean Platelet Volume 7 um3 Low 7.4-10.4 Abs Neutrophils 11.1 10^3/uL High 1.5-7.7 Abs Lymphocytes 1.5 10^3/uL N 1.0-4.8 Abs Monocytes 0.8 10^3/uL N 0-0.8 Abs Eosinophils 0.2 10^3/uL N 0-0.6 Abs Basophils 0.1 10^3/uL N 0-0.2 Abs Nucleated RBC 0 10^3/uL Granulocyte % 81.1 % N 38-83 Lymphocyte % 10.9 % Low 25-47 Monocyte % 6.0 % N 0-7 Eosinophil % 1.2 % N 0-6 Basophil % 0.8 % N 0-2 Nucleated Red Blood Cells % 0.3 Comp Metabolic Panel 04/25/2017 [facility] Sodium 135 mmol/L N 133-[address] [place] [address] [phone] Potassium 3.3 mmol/L Low 3.5-5.0 Chloride 108 mmol/L N 101-111 Co2 Carbon Dioxide 18 mmol/L Low 22-32 Anion Gap 9 mmol/L N 2-11 Glucose 129 mg/dL High 70-100 Blood Urea Nitrogen 35 mg/dL High 6-24 Creatinine 4.86 mg/dL High 0.67-1.17 BUN/Creatinine Ratio 7.2 Low 8-20 Calcium 7.3 mg/dL Low 8.6-10.3 Total Protein 4.4 g/dL Low 6.4-8.9 Albumin 1.6 g/dL Low 3.2-5.2 Globulin 2.8 g/dL N 2-4 Albumin/Globulin Ratio 0.6 Low 1-3 Total Bilirubin 0.20 mg/dL N 0.2-1.0 Alkaline Phosphatase 631 U/L High 34-104 Alt 26 U/L N 7-52 Ast 24 U/L N 13-39 Egfr Non- 12.8 >60 Egfr 16.5 >60 43 CBC Auto 04/25/2017 [facility] White Blood 13.6 10^3/uL High 3.5-10.[address] [place] [address] [phone] Red Blood Count 4.29 10^6/uL N 4.0-5.4 Hemoglobin 14.2 g/dL N 14.0-18.0 Hematocrit 41 % Low 42-52 Mean Corpuscular Volume 95 fL High 80-94 Mean Corpuscular Hemoglobin 33 pg High 27-31 Mean Corpuscular HGB Conc 35 g/dL N 31-36 Red Cell Distribution Width 17 % High 10.5-15 Platelet Count 428 10^3/uL N 150-450 Mean Platelet Volume 8 um3 N 7.4-10.4 Abs Neutrophils 9.7 10^3/uL High 1.5-7.7 Abs Lymphocytes 2.7 10^3/uL N 1.0-4.8 Abs Monocytes 0.9 10^3/uL High 0-0.8 Abs Eosinophils 0.2 10^3/uL N 0-0.6 Abs Basophils 0.1 10^3/uL N 0-0.2 Abs Nucleated RBC 0 10^3/uL Granulocyte % 71.3 % N 38-83 Lymphocyte % 20.0 % Low 25-47 Monocyte % 6.4 % N 0-7 Eosinophil % 1.4 % N 0-6 Basophil % 0.9 % N 0-2 Nucleated Red Blood Cells % 0.1 Laboratory test 04/13/2017 [facility] Coagulation 75 % 70 - 150 [address] [place] [address] [phone] CBC Auto Diff 04/13/2017 [facility] White Blood 14.8 High 3.5- 10.[address] Count 10^3/[place] [address] [phone] Red Blood Count 4.89 10^6/uL N 4.0-5.4 Hemoglobin 16.0 g/dL N 14.0-18.0 Hematocrit 47 % N 42-52 Mean Corpuscular Volume 95 fL High 80-94 Mean Corpuscular Hemoglobin 33 pg High 27-31 Mean Corpuscular HGB Conc 34 g/dL N 31-36 Red Cell Distribution Width 17 % High 10.5-15 Platelet Count 441 10^3/uL N 150-450 Mean Platelet Volume 7 um3 Low 7.4-10.4 Abs Neutrophils 9.8 10^3/uL High 1.5-7.7 Abs Lymphocytes 3.6 10^3/uL N 1.0-4.8 Abs Monocytes 1.0 10^3/uL High 0-0.8 Abs Eosinophils 0.2 10^3/uL N 0-0.6 Abs Basophils 0.2 10^3/uL N 0-0.2 Abs Nucleated RBC 0 10^3/uL Granulocyte % 66.0 % N 38-83 Lymphocyte % 24.5 % Low 25-47 Monocyte % 6.6 % N 1-9 Eosinophil % 1.3 % N 0-6 Basophil % 1.6 % N 0-2 Nucleated Red Blood Cells % 0.1 Comp Metabolic Panel 04/13/2017 [facility] Sodium 133 mmol/L N 133-[address] [place] [address] [phone] Potassium 3.6 mmol/L N 3.5-5.0 Chloride 104 mmol/L N 101-111 Co2 Carbon Dioxide 22 mmol/L N 22-32 Anion Gap 7 mmol/L N 2-11 Glucose 113 mg/dL High 70-100 Blood Urea Nitrogen 31 mg/dL High 6-24 Creatinine 4.22 mg/dL High 0.67-1.17 BUN/Creatinine Ratio 7.3 Low 8-20 Calcium 7.6 mg/dL Low 8.6-10.3 Total Protein 4.8 g/dL Low 6.4-8.9 Albumin 1.7 g/dL Low 3.2-5.2 Globulin 3.1 g/dL N 2-4 Albumin/Globulin Ratio 0.5 Low 1-3 Total Bilirubin 0.30 mg/dL N 0.2-1.0 Alkaline Phosphatase 555 U/L High 34-104 Alt 15 U/L N 7-52 Ast 17 U/L N 13-39 Egfr Non- 15.1 >60 Egfr 19.4 >60 45 Laboratory test 04/06/2017 [facility] Surgical SEE RESULT [address] [place] [address] [phone] Platelet Count 04/06/2017 [facility] Platelet Count 441 10^3/uL N 150-[address] 0 [place] [address] [phone] Mean Platelet Volume 7 um3 Low 7.4-10.4 Inr/Protime 04/06/2017 [facility] Inr 0.93 N 0.77-1.[address] [place] [address] [phone] Laboratory test 04/06/2017 [facility] Partial 33.9 seconds N 26.0-36.[address] [place] [address] PTT [phone] Comp Metabolic 04/03/2017 [facility] Sodium 133 mmol/L N 133- [address] [place] [address] [phone] Potassium 3.8 mmol/L N 3.5-5.0 Chloride 103 mmol/L N 101-111 Co2 Carbon Dioxide 25 mmol/L N 22-32 Anion Gap 5 mmol/L N 2-11 Glucose 101 mg/dL High 70-100 Blood Urea Nitrogen 24 mg/dL N 6-24 Creatinine 3.55 mg/dL High 0.67-1.17 BUN/Creatinine Ratio 6.8 Low 8-20 Calcium 7.7 mg/dL Low 8.6-10.3 Total Protein 4.7 g/dL Low 6.4-8.9 Albumin 1.7 g/dL Low 3.2-5.2 Globulin 3.0 g/dL N 2-4 Albumin/Globulin Ratio 0.6 Low 1-3 Total Bilirubin 0.30 mg/dL N 0.2-1.0 Alkaline Phosphatase 667 U/L High 34-104 Alt 16 U/L N 7-52 Ast 23 U/L N 13-39 Egfr Non- 18.4 >60 Egfr 23.7 >60 47 Comp Metabolic Panel 03/20/2017 [facility] Sodium 137 mmol/L N 133-[address] [place] [address] [phone] Potassium 4.1 mmol/L N 3.5-5.0 Chloride 106 mmol/L N 101-111 Co2 Carbon Dioxide 23 mmol/L N 22-32 Anion Gap 8 mmol/L N 2-11 Glucose 116 mg/dL High 70-100 Blood Urea Nitrogen 24 mg/dL N 6-24 Creatinine 3.38 mg/dL High 0.67-1.17 BUN/Creatinine Ratio 7.1 Low 8-20 Calcium 7.9 mg/dL Low 8.6-10.3 Total Protein 4.4 g/dL Low 6.4-8.9 Albumin 1.8 g/dL Low 3.2-5.2 Globulin 2.6 g/dL N 2-4 Albumin/Globulin Ratio 0.7 Low 1-3 Total Bilirubin 0.30 mg/dL N 0.2-1.0 Alkaline Phosphatase 529 U/L High 34-104 Alt 15 U/L N 7-52 Ast 20 U/L N 13-39 Egfr Non- 19.5 >60 Egfr 25.1 >60 48 Laboratory test 02/28/2017 [facility] Surgical Pathology SEE RESULT [address] [place] [address] [phone] Leukemia/Lymphom 02/28/2017 [facility] Path Interpretation (SEE NOTE) [address] 2-8 [place] [address] [phone] Path Interpret > 16 Marker TNP Path Interpret 9-15 Marker TNP Bone Marrow 02/28/2017 [facility] BM Result Summary Normal Chromosomes [address] [place] [address] [phone] BM Chromosome Specimen Bone Marrow BM Referral Reason rbc abnormality BM Chromosome Method See Comment 51 BM Chromo Banding Method See Comment 52 BM Cromosome Results 46,XY[20] BM Chromosome Interpretation See Comment 53 Released By See Comment 54 BCR/Abl Trans 9:22 02/24/2017 [facility] BCR/abl (Fish) Normal Fish [address] [place] [address] [phone] BCR/abl (Fish) Result Table See Comment 55 BCR/abl (Fish) Specimen Blood BCR/abl (Fish) Referral Reason See Comment 56 BCR/abl (Fish) Method See Comment 57 BCR/abl Results See Comment 58 BCR/abl (Fish) Interpretation See Comment 59 BCR/abl (Fish) Disclaimer See Comment 60 BCR/abl (Fish) Released By See Comment 61 Laboratory test 02/24/2017 [facility] Rheumatoid Factor <15 IU/ mL <15 [address] [place] [address] [phone] Beta 2 Microglobulin 8.52 g/mL Abnormal 63 Myeloprolif 02/24/2017 [facility] MPNR Result see interpretati 64 Neoplasm With RFX [address] <SEE NOTE> [place], [place] [id number] [phone] MPNR Final Diagnosis See Comment 65 Laboratory test 02/23/2017 [facility] GGTP 532 U/L High 9- 64.[address] [place], [place] [id number] [phone] Total Protein 02/23/2017 [facility] Urine [address] Collection Time [place], [place] [id number] [phone] Urine Total Volume 1950 mL Urine Random Total Protein 1553 mg/dL Urine Total Protein/24HR 91636 mg/24Hr High 0-165 Laboratory test finding 02/23/2017 [facility] LDH 168 U/L N 140-[address] [place], [place] [id number] [phone] Erythrocyte Sed Rate 98 mm/Hr High 0-14 C Reactive Protein 3.47 mg/L N < 5.00 68 Ferritin 393.7 ng/mL High 24-336 69 Iron & Iron Binding 02/23/2017 [facility] Iron 48 g/dL Low 50-[address] [place] [address] [phone] Unsaturated Iron Binding 114 g/dL Total Iron Binding Capacity 162 g/dL Low 250-450 % Iron Saturation 30 % N 15-55 Protein 01/30/2017 [facility] Total 4.7 Abnormal 6.3 - 70 Electrophoresis 101 Protein(Pep) g/dL 7.9 [place], [place] [address] [phone] Albumin 1.5 g/dL Abnormal 3.4-4.7 Alpha-1 Globulin 0.3 g/dL 0.1-0.3 Alpha-2 Globulin 1.3 g/dL Abnormal 0.6-1.0 Beta Globulin 1.1 g/dL 0.7-1.2 Gamma Globulin 0.6 g/dL 0.6-1.6 Albumin/Globulin Ratio 0.46 M Teto 0.4 g/dL Impression See Comment 71 Immunofixation See Comment 72 Laboratory test 01/30/2017 [facility] LDL Cholesterol 141 mg/dL [address] [place] [address] [phone] CBC Auto Diff 01/30/2017 [facility] White Blood 17.0 High 3.5- [address] Count 10^3/uL 0.8 [place] [address] [phone] Red Blood Count 5.46 10^6/uL High 4.0-5.4 Hemoglobin 18.1 g/dL High 14.0-18.0 Hematocrit 52 % N 42-52 Mean Corpuscular Volume 94 fL N 80-94 Mean Corpuscular Hemoglobin 33 pg High 27-31 Mean Corpuscular HGB Conc 35 g/dL N 31-36 Red Cell Distribution Width 16 % High 10.5-15 Platelet Count 476 10^3/uL High 150-450 Mean Platelet Volume 7 um3 Low 7.4-10.4 Abs Neutrophils 13.3 10^3/uL High 1.5-7.7 Abs Lymphocytes 2.6 10^3/uL N 1.0-4.8 Abs Monocytes 0.6 10^3/uL N 0-0.8 Abs Eosinophils 0.3 10^3/uL N 0-0.6 Abs Basophils 0.2 10^3/uL N 0-0.2 Abs Nucleated RBC 0.15 10^3/uL Granulocyte % 78.4 % N 38-83 Lymphocyte % 15.3 % Low 25-47 Monocyte % 3.3 % N 1-9 Eosinophil % 2.0 % N 0-6 Basophil % 1.0 % N 0-2 Nucleated Red Blood Cells % 0.9 Comp Metabolic Panel 01/30/2017 [facility] Sodium 135 mmol/L N 133-[address] [place] [address] [phone] Potassium 4.4 mmol/L N 3.5-5.0 Chloride 105 mmol/L N 101-111 Co2 Carbon Dioxide 24 mmol/L N 22-32 Anion Gap 6 mmol/L N 2-11 Glucose 99 mg/dL N 70-100 Blood Urea Nitrogen 17 mg/dL N 6-24 Creatinine 2.19 mg/dL High 0.67-1.17 BUN/Creatinine Ratio 7.8 Low 8-20 Calcium 8.0 mg/dL Low 8.6-10.3 Total Protein 4.6 g/dL Low 6.4-8.9 Albumin 2.0 g/dL Low 3.2-5.2 Globulin 2.6 g/dL N 2-4 Albumin/Globulin Ratio 0.8 Low 1-3 Total Bilirubin 0.30 mg/dL N 0.2-1.0 Alkaline Phosphatase 471 U/L High 34-104 Alt 19 U/L N 7-52 Ast 29 U/L N 13-39 Egfr Non- 32.3 >60 Egfr 41.5 >60 74 Laboratory test 01/30/2017 [facility] PSA Diagnostic 0.377 N 0 -4.000 [address] ng/[place] [address] [phone] Ceruloplasmin 17.6 mg/dL Abnormal 76 Celiac Panel 01/30/2017 [facility] Tissue Transglutaminase <1.2 U/mL [address] [place] [address] [phone] Immunoglobulin A 283 mg/dL 61 - 356 Celiac Interpretation See Comment 78 Inr/Protime 01/30/2017 [facility] Inr 0.95 N 0.77-1.[address] [place] [address] [phone] Lipid Profile 01/30/2017 [facility] HDL Cholesterol 32.8 80 (Trig/Chol/HDL) [address] mg/[place] [address] [phone] Triglycerides 1348 mg/dL 81 Cholesterol 712 mg/dL 82 LDL Cholesterol (SEE NOTE) mg/dL 83 CBC Auto 01/12/2017 [facility] White Blood 17.8 10^3/uL High 3.5-10.[address] [place] [address] [phone] Red Blood Count 5.45 10^6/uL High 4.0-5.4 Hemoglobin 18.3 g/dL High 14.0-18.0 Hematocrit 52 % N 42-52 Mean Corpuscular Volume 96 fL High 80-94 Mean Corpuscular Hemoglobin 34 pg High 27-31 Mean Corpuscular HGB Conc 35 g/dL N 31-36 Red Cell Distribution Width 16 % High 10.5-15 Platelet Count 448 10^3/uL N 150-450 Mean Platelet Volume 8 um3 N 7.4-10.4 Abs Neutrophils 12.4 10^3/uL High 1.5-7.7 Abs Lymphocytes 3.8 10^3/uL N 1.0-4.8 Abs Monocytes 1.1 10^3/uL High 0-0.8 Abs Eosinophils 0.3 10^3/uL N 0-0.6 Abs Basophils 0.2 10^3/uL N 0-0.2 Abs Nucleated RBC 0.06 10^3/uL Granulocyte % 69.3 % N 38-83 Lymphocyte % 21.6 % Low 25-47 Monocyte % 6.3 % N 1-9 Eosinophil % 1.7 % N 0-6 Basophil % 1.1 % N 0-2 Nucleated Red Blood Cells % 0.3 Laboratory test 01/12/2017 [facility] C Reactive 4.23 mg/L N < 5.00 [address] [place] [address] [phone] Erythrocyte Sed Rate 88 mm/Hr High 0-14 Lipase 53 U/L N 11.0-82.0 Amylase 43 U/L N 29-103 Urinalysis Profile 01/12/2017 [facility] Urine Color Yellow [address] [place] [address] [phone] Urine Appearance Cloudy Urine Specific [place] 1.026 N 1.010-1.030 Urine pH 5.0 N 5-9 Urine Urobilinogen Negative Negative Urine Ketones Negative Negative Urine Protein 3+(>=500 mg/dL) Abnormal Negative Urine Leukocytes Negative Negative Urine Blood 1+ Abnormal Negative Urine Nitrite Negative Negative Urine Bilirubin Negative Negative Urine Glucose 1+(50 mg/dL) Abnormal Negative Urine White Blood Cell 1+(6-10/hpf) Abnormal Absent Urine Red Blood Cell 1+(3-5/hpf) Abnormal Absent Urine Bacteria 1+ Abnormal Absent Urine Squamous Epithelial Cell Present Abnormal Absent Laboratory test 01/12/2017 [facility] Mitochondrial AB <0.1 U [address] [place] [address] [phone] Liver Function 01/12/2017 [facility] Total Protein 5.0 g/dL Low 6.4-[address]9 [place] [address] [phone] Albumin 2.4 g/dL Low 3.2-5.2 Globulin 2.6 g/dL N 2-4 Albumin/Globulin Ratio 0.9 Low 1-3 Total Bilirubin 0.30 mg/dL N 0.2-1.0 Direct Bilirubin 0.00 mg/dL Low 0.03-0.18 Alkaline Phosphatase 451 U/L High 34-104 Alt 18 U/L N 7-52 Ast 25 U/L N 13-39 Laboratory test 01/12/2017 [facility] Nuclear AB <1:80 (Negative ) [address] (Steffi) [place] [address] Igg [phone] Smooth Muscle Antibody Negative Negative 87 Hepatitis 01/12/2017 [facility] Hepatitis C Nonreactive Nonreactive Acute Panel [address] [place] [address] [phone] Hepatitis A AB Igm Nonreactive Nonreactive Hepatitis B Core AB Igm Nonreactive Nonreactive Hepatitis B Surface Ag Nonreactive Nonreactive Urine Culture And 01/12/2017 [facility] Urine Culture SEE RESULT [address] [place] [address] [phone] Laboratory test 11/22/2016 [facility] LDL Cholesterol 84 mg/dL N [address] Direct [place], [place] [id number] [phone] Comp Metabolic 11/22/2016 [facility] Sodium 137 mmol/L N 133- [address] [place] [address] [phone] Potassium 3.9 mmol/L N 3.5-5.0 Chloride 105 mmol/L N 101-111 Co2 Carbon Dioxide 25 mmol/L N 22-32 Anion Gap 7 mmol/L N 2-11 Glucose 108 mg/dL High 70-100 Blood Urea Nitrogen 15 mg/dL N 6-24 Creatinine 1.73 mg/dL High 0.67-1.17 BUN/Creatinine Ratio 8.7 N 8-20 Calcium 8.2 mg/dL Low 8.6-10.3 Total Protein 5.2 g/dL Low 6.4-8.9 Albumin 2.6 g/dL Low 3.2-5.2 Globulin 2.6 g/dL N 2-4 Albumin/Globulin Ratio 1.0 N 1-3 Total Bilirubin 0.50 mg/dL N 0.2-1.0 Alkaline Phosphatase 324 U/L High 34-104 Alt 16 U/L N 7-52 Ast 23 U/L N 13-39 Egfr Non- 42.4 N >60 Egfr 54.5 N >60 90 Lipid Profile 11/22/2016 [facility] Triglycerides 674 mg/dL N 91 (Trig/Chol/HDL) [address] [place] [address] [phone] Cholesterol 334 mg/dL N 92 HDL Cholesterol 36.2 mg/dL N 93 LDL Cholesterol (SEE NOTE) mg/dL N 94 Laboratory test 11/22/2016 [facility] Hemoglobin A1c 5.7 % N Less than 95 finding [address] [place] (Glyco HGB) 6.0 [place] [address] [phone] Laboratory test 08/11/2016 [facility] Ast (Sgot) 30 U/L N 13- 39 96 finding [address] [place] [address] [phone] Alt 26 U/L N 7-52 97 Lipid Profile 08/11/2016 [facility] Triglycerides 935 mg/dL N 98 (Trig/Chol/HDL) [address] [place] [address] [phone] Cholesterol 399 mg/dL N 99 HDL Cholesterol 37.9 mg/dL N 100 LDL Cholesterol (SEE NOTE) mg/dL N 101 Comp Metabolic Panel 06/13/2016 [facility] Sodium 134 mmol/L N 133-145 [address] [place] [address] [phone] Potassium 4.5 mmol/L N 3.5-5.0 Chloride 99 mmol/L Low 101-111 Co2 Carbon Dioxide 28 mmol/L N 22-32 Anion Gap 7 mmol/L N 2-11 Glucose 104 mg/dL High 70-100 Blood Urea Nitrogen 15 mg/dL N 6-24 Creatinine 1.01 mg/dL N 0.67-1.17 BUN/Creatinine Ratio 14.9 N 8-20 Calcium 9.4 mg/dL N 8.6-10.3 Total Protein 6.9 g/dL N 6.4-8.9 Albumin 3.7 g/dL N 3.2-5.2 Globulin 3.2 g/dL N 2-4 Albumin/Globulin Ratio 1.2 N 1-3 Total Bilirubin 0.40 mg/dL N 0.2-1.0 Alkaline Phosphatase 158 U/L High 34-104 Alt 16 U/L N 7-52 Ast 21 U/L N 13-39 Egfr Non- 78.8 N >60 Egfr 101.4 N >60 102 Lipid Profile 06/13/2016 [facility] Cholesterol 596 mg/dL N 103 (Trig/Chol/HDL) [address] [place], [place] [id number] [phone] HDL Cholesterol 34.6 mg/dL N 104 Triglycerides 1212 mg/dL N 105 LDL Cholesterol (SEE NOTE) mg/dL N 106 Laboratory test 06/13/2016 [facility] LDL Cholesterol 102 mg/dL N [address] [place] [address] [phone] Lipid Profile 04/14/2016 [facility] Cholesterol 623 mg/dL N 108 (Trig/Chol/HDL) [address] [place] [address] [phone] HDL Cholesterol 30.0 mg/dL N 109 Triglycerides 2008 mg/dL N 110 LDL Cholesterol (SEE NOTE) mg/dL N 111 Basic Metabolic Panel 04/14/2016 [facility] Sodium 134 mmol/L N 133-145 [address] [place] [address] [phone] Chloride 101 mmol/L N 101-111 Co2 Carbon Dioxide 28 mmol/L N 22-32 Glucose 102 mg/dL High 70-100 Blood Urea Nitrogen 13 mg/dL N 6-24 Creatinine 1.07 mg/dL N 0.67-1.17 BUN/Creatinine Ratio 12.1 N 8-20 Calcium 9.6 mg/dL N 8.6-10.3 112 Egfr Non- 73.8 N >60 Egfr 94.9 N >60 113 Potassium 4.4 mmol/L N 3.5-5.0 Anion Gap 5 mmol/L N 2-11 Lipid Profile 10/14/2014 [facility] Triglycerides 307 mg/dL N 114, 115 (Trig/Chol/HDL) [address] [place] [address] [phone] Cholesterol 220 mg/dL N 116 HDL Cholesterol 34.7 mg/dL N 117 LDL Cholesterol 124 mg/dL N 118 Laboratory test 10/14/2014 [facility] Uric Acid 4.2 mg/dL Low 4.4-7.6 119 finding [address] [place] [address] [phone] Basic Metabolic 10/14/2014 [facility] Sodium 137 mmol/L N 133- [address] [place] [address] [phone] Potassium 4.2 mmol/L N 3.5-5.0 Chloride 105 mmol/L N 101-111 Co2 Carbon Dioxide 24 mmol/L N 22-32 Anion Gap 8 mmol/L N 2-11 Glucose 103 mg/dL High 70-100 Blood Urea Nitrogen 13 mg/dL N 6-24 Creatinine 0.79 mg/dL N 0.67-1.17 BUN/Creatinine Ratio 16.5 N 8-20 Calcium 9.1 mg/dL N 8.6-10.3 Egfr Non- 105.6 N >60 Egfr 135.8 N >60 120 Stone Analysis 08/28/2014 [facility] Kidney Stone Source Kidney N [address] [place] [address] [phone] Kidney Stone 1st Constituent 100% Uric acid N 121 Laboratory test 08/28/2014 [facility] Surgical SEE RESULT [address] [place] [address] [phone] CBC Auto Diff 07/01/2014 [facility] White Blood 16.8 High 4.8- [address] Count 10^3/uL 0.8 [place] [address] [phone] Red Blood Count 4.54 10^6/uL N 4.0-5.4 Hemoglobin 16.1 g/dL N 14.0-18.0 Hematocrit 45 % N 42-52 Mean Corpuscular Volume 100 fL High 80-94 Mean Corpuscular Hemoglobin 35 pg High 27-31 Mean Corpuscular HGB Conc 36 g/dL N 31-36 Red Cell Distribution Width 13 % N 10.5-15 Platelet Count 283 10^3/uL N 150-450 Mean Platelet Volume 8 um3 N 7.4-10.4 Abs Neutrophils 14.8 10^3/uL High 1.5-7.7 Abs Lymphocytes 1.1 10^3/uL N 1.0-4.8 Abs Monocytes 0.9 10^3/uL High 0-0.8 Abs Eosinophils 0 10^3/uL N 0-0.6 Abs Basophils 0.1 10^3/uL N 0-0.2 Abs Nucleated RBC 0 10^3/uL N Granulocyte % 87.6 % High 38-83 Lymphocyte % 6.3 % Low 25-47 Monocyte % 5.6 % N 1-9 Eosinophil % 0.1 % N 0-6 Basophil % 0.4 % N 0-2 Nucleated Red Blood Cells % 0 N Urinalysis Profile 07/01/2014 [facility] Urine Color Yellow N [address] [place] [address] [phone] Urine Appearance Cloudy N Urine Specific [place] 1.023 N 1.010-1.030 Urine pH 5.0 N 5-9 Urine Urobilinogen Negative N Negative Urine Ketones Negative N Negative Urine Protein 1+(30 mg/dL) Abnormal Negative Urine Leukocytes Negative N Negative Urine Blood 3+ Abnormal Negative Urine Nitrite Negative N Negative Urine Bilirubin Negative N Negative Urine Glucose Negative N Negative Urine White Blood Cell Trace(0-5/hpf) N Absent Urine Red Blood Cell 3+(>10/hpf) Abnormal Absent Urine Bacteria Absent N Absent Urine Squamous Epithelial Cell Present Abnormal Absent Comp Metabolic Panel 07/01/2014 [facility] Sodium 135 mmol/L N 133-145 [address] [place] [address] [phone] Potassium 3.9 mmol/L N 3.5-5.0 Chloride 103 mmol/L N 101-111 Co2 Carbon Dioxide 23 mmol/L N 22-32 Anion Gap 9 mmol/L N 2-11 Glucose 129 mg/dL High 70-100 Blood Urea Nitrogen 22 mg/dL N 6-24 Creatinine 1.10 mg/dL N 0.67-1.17 BUN/Creatinine Ratio 20.0 N 8-20 Calcium 9.2 mg/dL N 8.6-10.3 Total Protein 7.2 g/dL N 6.4-8.9 Albumin 4.2 g/dL N 3.2-5.2 Globulin 3.0 g/dL N 2-4 Albumin/Globulin Ratio 1.4 N 1-3 Total Bilirubin 0.50 mg/dL N 0.2-1.0 Alkaline Phosphatase 77 U/L N 34-104 Alt 39 U/L N 7-52 Ast 25 U/L N 13-39 Egfr Non- 72.1 N >60 Egfr 92.7 N >60 123 Laboratory test finding 07/01/2014 [facility] Lipase 34 U/L N 11.0-82.0 [address] [place] [address] [phone] C Reactive Protein 11.78 mg/L High < 5.00 124 1 Because ethnic data is not always readily available, this report includes an eGFR for both -Americans and non- Americans. The National Kidney Disease Education Program (NKDEP) does not endorse the use of the MDRD equation for patients that are not between the ages of 18 and 70, are , have extremes of body size, muscle mass, or nutritional status, or are non- or non-. According to the National Kidney Foundation, irrespective of diagnosis, the stage of the disease is based on the level of kidney function: Stage Description GFR(mL/min/1.73 m(2)) 1 Kidney damage with normal or decreased GFR 90 2 Kidney damage with mild decrease in GFR 60-89 3 Moderate decrease in GFR 30-59 4 Severe decrease in GFR 15-29 5 Kidney failure <15 (or dialysis) 2 Test Performed by: [facility] - [address] [address] 3 ADDITIONAL INFORMATION This test has been modified from the building and grounds supervisor's instructions. Its performance characteristics were determined by [facility] in a manner consistent with CLIA requirements. This test has not been cleared or approved by the U.S. Food and Drug Administration. Test Performed by: [facility] - [address] [address] 4 REFERENCE VALUE 0.3300-1.94 5 REFERENCE VALUE 0.5700-2.63 6 REFERENCE VALUE 0.2600-1.65 Test Performed by: [address] [address] 7 Consistent with Previous Results Reported on 06/27/17 8 Because ethnic data is not always readily available, this report includes an eGFR for both -Americans and non- Americans. The National Kidney Disease Education Program (NKDEP) does not endorse the use of the MDRD equation for patients that are not between the ages of 18 and 70, are , have extremes of body size, muscle mass, or nutritional status, or are non- or non-. According to the National Kidney Foundation, irrespective of diagnosis, the stage of the disease is based on the level of kidney function: Stage Description GFR(mL/min/1.73 m(2)) 1 Kidney damage with normal or decreased GFR 90 2 Kidney damage with mild decrease in GFR 60-89 3 Moderate decrease in GFR 30-59 4 Severe decrease in GFR 15-29 5 Kidney failure <15 (or dialysis) 9 Coag Factor X Assay, P was cancelled on 08/24/2017 at 10:47; Specimen clotted. 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 Performed by: [facility] [address] [place] [address] 15 REFERENCE VALUE 0.3300-1.94 16 REFERENCE VALUE 0.5700-2.63 17 REFERENCE VALUE 0.2600-1.65 Test Performed by: [facility] [address] [place] [address] 18 Consistent with Previous Results Reported on 06/13/17 19 Test Performed by: [facility] [address] [place] [address] 20 REFERENCE VALUE 1.21 - 2.70 Test Performed by: [address] [address] 21 Consistent with Previous Results Reported on 06/06/17 22 Because ethnic data is not always readily available, this report includes an eGFR for both -Americans and non- Americans. The National Kidney Disease Education Program (NKDEP) does not endorse the use of the MDRD equation for patients that are not between the ages of 18 and 70, are , have extremes of body size, muscle mass, or nutritional status, or are non- or non-. According to the National Kidney Foundation, irrespective of diagnosis, the stage of the disease is based on the level of kidney function: Stage Description GFR(mL/min/1.73 m(2)) 1 Kidney damage with normal or decreased GFR 90 2 Kidney damage with mild decrease in GFR 60-89 3 Moderate decrease in GFR 30-59 4 Severe decrease in GFR 15-29 5 Kidney failure <15 (or dialysis) 23 Consistent with Previous Results Reported on 05/30/17 24 Because ethnic data is not always readily available, this report includes an eGFR for both -Americans and non- Americans. The National Kidney Disease Education Program (NKDEP) does not endorse the use of the MDRD equation for patients that are not between the ages of 18 and 70, are , have extremes of body size, muscle mass, or nutritional status, or are non- or non-. According to the National Kidney Foundation, irrespective of diagnosis, the stage of the disease is based on the level of kidney function: Stage Description GFR(mL/min/1.73 m(2)) 1 Kidney damage with normal or decreased GFR 90 2 Kidney damage with mild decrease in GFR 60-89 3 Moderate decrease in GFR 30-59 4 Severe decrease in GFR 15-29 5 Kidney failure <15 (or dialysis) 25 Because ethnic data is not always readily available, this report includes an eGFR for both -Americans and non- Americans. The National Kidney Disease Education Program (NKDEP) does not endorse the use of the MDRD equation for patients that are not between the ages of 18 and 70, are , have extremes of body size, muscle mass, or nutritional status, or are non- or non-. According to the National Kidney Foundation, irrespective of diagnosis, the stage of the disease is based on the level of kidney function: Stage Description GFR(mL/min/1.73 m(2)) 1 Kidney damage with normal or decreased GFR 90 2 Kidney damage with mild decrease in GFR 60-89 3 Moderate decrease in GFR 30-59 4 Severe decrease in GFR 15-29 5 Kidney failure <15 (or dialysis) 26 REFERENCE VALUE 0.3300-1.94 27 REFERENCE VALUE 0.5700-2.63 28 REFERENCE VALUE 0.2600-1.65 Test Performed by: [place] [address] 29 Macrocytic anemia. Reviewed by Clare Ugarte MD 30 Result TnIDx:0.25 Called to KFOX at: 13:23:19 by:[id number] Read back by:[email or web address] 31 [facility] Severe Sepsis and Septic Shock Management Bundle Measure requires all lactic acids initially measuring >2.0 mmol/L be repeated. 32 Result TnIDx:0.26 Called to [id number] at: 11:00:07 by:[id number] Read back by: [id number] 33 >100 to <200 pg/mL: likely compensated congestive heart failure (CHF) 200 to 400 pg/mL: likely moderate CHF >400 pg/mL: likely moderate to severe CHF 34 Because ethnic data is not always readily available, this report includes an eGFR for both -Americans and non- Americans. The National Kidney Disease Education Program (NKDEP) does not endorse the use of the MDRD equation for patients that are not between the ages of 18 and 70, are , have extremes of body size, muscle mass, or nutritional status, or are non- or non-. According to the National Kidney Foundation, irrespective of diagnosis, the stage of the disease is based on the level of kidney function: Stage Description GFR(mL/min/1.73 m(2)) 1 Kidney damage with normal or decreased GFR 90 2 Kidney damage with mild decrease in GFR 60-89 3 Moderate decrease in GFR 30-59 4 Severe decrease in GFR 15-29 5 Kidney failure <15 (or dialysis) 35 REFERENCE VALUE 0.3300-1.94 36 REFERENCE VALUE 0.5700-2.63 37 REFERENCE VALUE 0.2600-1.65 Test Performed by: [address] [address] 38 Because ethnic data is not always readily available, this report includes an eGFR for both -Americans and non- Americans. The National Kidney Disease Education Program (NKDEP) does not endorse the use of the MDRD equation for patients that are not between the ages of 18 and 70, are , have extremes of body size, muscle mass, or nutritional status, or are non- or non-. According to the National Kidney Foundation, irrespective of diagnosis, the stage of the disease is based on the level of kidney function: Stage Description GFR(mL/min/1.73 m(2)) 1 Kidney damage with normal or decreased GFR 90 2 Kidney damage with mild decrease in GFR 60-89 3 Moderate decrease in GFR 30-59 4 Severe decrease in GFR 15-29 5 Kidney failure <15 (or dialysis) 39 Because ethnic data is not always readily available, this report includes an eGFR for both -Americans and non- Americans. The National Kidney Disease Education Program (NKDEP) does not endorse the use of the MDRD equation for patients that are not between the ages of 18 and 70, are , have extremes of body size, muscle mass, or nutritional status, or are non- or non-. According to the National Kidney Foundation, irrespective of diagnosis, the stage of the disease is based on the level of kidney function: Stage Description GFR(mL/min/1.73 m(2)) 1 Kidney damage with normal or decreased GFR 90 2 Kidney damage with mild decrease in GFR 60-89 3 Moderate decrease in GFR 30-59 4 Severe decrease in GFR 15-29 5 Kidney failure <15 (or dialysis) 40 REFERENCE VALUE 0.3300-1.94 41 REFERENCE VALUE 0.5700-2.63 42 REFERENCE VALUE 0.2600-1.65 Test Performed by: [address] [address] 43 Because ethnic data is not always readily available, this report includes an eGFR for both -Americans and non- Americans. The National Kidney Disease Education Program (NKDEP) does not endorse the use of the MDRD equation for patients that are not between the ages of 18 and 70, are , have extremes of body size, muscle mass, or nutritional status, or are non- or non-. According to the National Kidney Foundation, irrespective of diagnosis, the stage of the disease is based on the level of kidney function: Stage Description GFR(mL/min/1.73 m(2)) 1 Kidney damage with normal or decreased GFR 90 2 Kidney damage with mild decrease in GFR 60-89 3 Moderate decrease in GFR 30-59 4 Severe decrease in GFR 15-29 5 Kidney failure <15 (or dialysis) 44 ADDITIONAL INFORMATION This test has been modified from the building and grounds supervisor's instructions. Its performance characteristics were determined by [facility] in a manner consistent with CLIA requirements. This test has not been cleared or approved by the U.S. Food and Drug Administration. Test Performed by: [address], [place] [address] 45 Because ethnic data is not always readily available, this report includes an eGFR for both -Americans and non- Americans. The National Kidney Disease Education Program (NKDEP) does not endorse the use of the MDRD equation for patients that are not between the ages of 18 and 70, are , have extremes of body size, muscle mass, or nutritional status, or are non- or non-. According to the National Kidney Foundation, irrespective of diagnosis, the stage of the disease is based on the level of kidney function: Stage Description GFR(mL/min/1.73 m(2)) 1 Kidney damage with normal or decreased GFR 90 2 Kidney damage with mild decrease in GFR 60-89 3 Moderate decrease in GFR 30-59 4 Severe decrease in GFR 15-29 5 Kidney failure <15 (or dialysis) 46 SEE RESULT BELOW Name: VIVEK ROBBINS : [address]: Ant Hannon MD Acct: [id number] Unit: [id number] AGE: 47 Location: Re04/06/17 SEX: M Status: REG REF SPEC: [id number] REBECCA: 04/06/17 [facility] DR: Onesiom Albrecht MD REQ: [id number] RECD: 04/06/17 STATUS: TED RAJAN DR: Ant Rodriguez MD _ ORDERED: PTH HANDLING CH, LEVEL 1, INTRAOP CON-GR Consultation with Dr. Meghana Moseley at [facility], [place], [place], outside accession number [id number], our surgical [id number] reported on 04/10/17 and received on 04/10/17. Original consultation report scanned into Pathology Consults. Diagnosis: Renal biopsy: 1. Amyloidosis, AL lambda type, involving glomeruli, interstitium, and arterial vessels, moderate to severe. SEE COMMENT. 2. Tubular atrophy and interstitial fibrosis, moderate to severe. 3. Arteriosclerosis, mild to moderate. Comment: Immunofluorescence microscopy shows staining of amyloid deposits for lambda light chain, with trace staining for IgM, consistent with amyloidosis, AL lambda type. There may be a component of reversible acute tubular injury; however, the moderate to severe tubulointerstitial scarring is likely irreversible. Electron microscopy is pending and will be reported separately in an addendum. Addendum Signed (signature on file) Huber Chong MD 1630 FINAL DIAGNOSIS Kidney, biopsy: Pending diagnosis from [facility] Renal Pathology. PRE-OPERATIVE DIAGNOSIS Renal failure CONTINUED ON NEXT PAGE * ML=Testing performed at Main Lab DEPARTMENT OF PATHOLOGY, [address] [place] [address] Huber Chong M.D. Director CLIA # [id number] RUN DATE: 04/10/17 [facility] LAB LIVE PAGE 2 Patient: VIVEK ROBBINS [id number] (Continued) GROSS DESCRIPTION (Continued) GROSS DESCRIPTION The specimen is received fresh labeled, Right Kidney, and consists of two dominguez -pink soft tissue cores measuring 1.3 x 0.1 cm and 1.7 x 0.1 cm. The specimen is sectioned and entirely submitted to [facility] renal analysis. Signed (signature on file) Clare Ugarte MD 10/14 1104 END OF REPORT * ML=Testing performed at Main Lab DEPARTMENT OF PATHOLOGY, [address] [place] [address] Huber Chong M.D. Director [facility] # [id number] 47 Because ethnic data is not always readily available, this report includes an eGFR for both -Americans and non- Americans. The National Kidney Disease Education Program (NKDEP) does not endorse the use of the MDRD equation for patients that are not between the ages of 18 and 70, are , have extremes of body size, muscle mass, or nutritional status, or are non- or non-. According to the National Kidney Foundation, irrespective of diagnosis, the stage of the disease is based on the level of kidney function: Stage Description GFR(mL/min/1.73 m(2)) 1 Kidney damage with normal or decreased GFR 90 2 Kidney damage with mild decrease in GFR 60-89 3 Moderate decrease in GFR 30-59 4 Severe decrease in GFR 15-29 5 Kidney failure <15 (or dialysis) 48 Because ethnic data is not always readily available, this report includes an eGFR for both -Americans and non- Americans. The National Kidney Disease Education Program (NKDEP) does not endorse the use of the MDRD equation for patients that are not between the ages of 18 and 70, are , have extremes of body size, muscle mass, or nutritional status, or are non- or non-. According to the National Kidney Foundation, irrespective of diagnosis, the stage of the disease is based on the level of kidney function: Stage Description GFR(mL/min/1.73 m(2)) 1 Kidney damage with normal or decreased GFR 90 2 Kidney damage with mild decrease in GFR 60-89 3 Moderate decrease in GFR 30-59 4 Severe decrease in GFR 15-29 5 Kidney failure <15 (or dialysis) 49 SEE RESULT BELOW Name: VIVEK ROBBINS : [address]: Carroll Rodriguez MD Acct: [id number] Unit: [id number] AGE: 46 Location: [facility] Re02/28/17 SEX: M Status: REG REF SPEC: [id number] REBECCA: 02/28/[address]: Carroll Rodriguez MD REQ: [id number] RECD: 02/28/17 STATUS: SOUT _ ORDERED: Decal, LEVEL 4/2, IMMUNO-FIRST, IMMUNO-ADDL/2, SPEC ST NON-ORG/2 FINAL DIAGNOSIS 1. Bone marrow, left posterior iliac crest, aspirate: --Moderately Hypercellular bone marrow with mixed trilinear hematopoiesis. -- Abundant iron stores on iron stain with appropriate controls. -- No increased reticulin fiber deposition on reticulin stain with appropriate controls. 2. Bone marrow, left posterior iliac crest, core biopsy: --Moderately Hypercellular bone marrow with mixed trilinear hematopoiesis. SPECIAL STUDIES Flow cytometry has been performed at [facility], [place], [place]. The testing reveals: FINAL DIAGNOSIS: Specimen Source: Bone marrow Flow cytometry immunophenotypic analysis: No evidence of an immunophenotypically abnormal cell population. Interpretative data: Blasts: 1% of gated events Lymphocytes: 15% of gated events B-cells: 17% of lymphs; kappa:lambda within normal limits T-cells/NK cells: No aberrant population detected. Markers tested: CD3, CD10, CD16, CD19, CD34, CD45, kappa surface light chains , lambda surface light chains, 7-AAD. Quality Assessment: Acceptable Viability: Acceptable CONTINUED ON NEXT PAGE * ML=Testing performed at Main Lab DEPARTMENT OF PATHOLOGY, [address] [place] [address] Huber Chong M.D. Director [facility] # [id number] RUN DATE: 03/06/17 [facility] LAB LIVE PAGE 2 Patient: VIVEK ROBBINS [id number] (Continued) SPECIAL STUDIES (Continued) SPECIAL STUDIES (Continued) Viable lymphocytes (7-AAD): 88% Specimen received within validated guidelines. A Foley-Giemsa stained slide prepared from the flow cytometry specimen was examined for quality purposes. Electronically signed by: Clare Ugarte MD 03/02/171315 Technical component performed by: [place] [address] Clarifier: Momo Robledo II, MD, PhD. REVISED REPORT --- Revised on 03/02/176 --- Path Inter 2-8 previously reported as: Test not performed PRE-OPERATIVE DIAGNOSIS R71.8 GROSS DESCRIPTION 1. The specimen is received in formalin labeled, LPIC, and consists of a 1.8 x 1.1 x 0.5 cm aggregate of red-brown blood clot which is submitted entirely in one cassette. 2. The specimen is received in formalin labeled, LPIC, and consists of two dominguez-brown cylindrical bone fragments averaging 0.5 x 0.2 cm which are submitted entirely in one cassette following decalcification. MICROSCOPIC DESCRIPTION The concurrent CBC with electronic differentials available for review with results as follows WBC 18.6 RBC 5.06 hemoglobin 16.7 hematocrit 48 MCV 95 MCH 33 MCHC 35 RDW 17% platelets count 433,000 absolute neutrophil count 13.6 absolute lymphocyte count 3.4 absolute monocyte count 1.2 absolute eosinophil count 0.2 absolute basophil count 0.1 CONTINUED ON NEXT PAGE * ML=Testing performed at Main Lab DEPARTMENT OF PATHOLOGY, [address] [place] [address] Huber Chong M.D. Director [facility] # [id number] RUN DATE: 03/06/17 [facility] LAB LIVE PAGE 3 Patient: VIVEK ROBBINS [id number] (Continued) MICROSCOPIC DESCRIPTION (Continued) MICROSCOPIC DESCRIPTION (Continued) The aspirate smears are amply spicular and demonstrates mixed trilinear hematopoiesis. M: E ratio is 6?8: 1. Myeloid maturation is unremarkable without evidence of dysplasia. Erythroid maturation is unremarkable. Blasts are less than 1%. Plasma cells and 3% May keratocytes are present in normal numbers and morphology. Scattered pigmented macrophages are noted in the background. The clot section is adequate a spicular and demonstrates 70% cellularity with mixed trilinear hematopoiesis. M: E ratio is increased to 6?8: 1 with normal appearing myeloid and erythroid maturation. Megakaryocytes are present in normal numbers and morphology. Increased pigmented histiocytes are seen. Blasts are less than 1% plasma cells are 3%. No lymphoid aggregates are seen. An iron stain performed with appropriate controls demonstrates abundant iron stores (3+). The core biopsy consists largely of paracortical bone with only a small area of preserved marrow demonstrating 70% cellularity with mixed trilinear hematopoiesis. M: E ratio is 6?8: 1 with normal appearing myeloid and erythroid maturation. No increase in blasts or plasma cells seen. Megakaryocytes are present in normal number and morphology. No lymphoid aggregates are seen. Signed (signature on file) Huber Chong MD 1100 END OF REPORT * ML=Testing performed at Main Lab DEPARTMENT OF PATHOLOGY, [address] [place] [address] Huber Chong M.D. Director [facility] # [id number] FINAL DIAGNOSIS: Specimen Source: Bone marrow Flow cytometry immunophenotypic analysis: No evidence of an immunophenotypically abnormal cell population. Interpretative data: Blasts: 1% of gated events Lymphocytes: 15% of gated events B-cells: 17% of lymphs; kappa:lambda within normal limits T-cells/NK cells: No aberrant population detected. Markers tested: CD3, CD10, CD16, CD19, CD34, CD45, kappa surface light chains, lambda surface light chains, 7-AAD. Quality Assessment: Acceptable Viability: Acceptable Viable lymphocytes (7-AAD): 88% Specimen received within validated guidelines. A Foley-Giemsa stained slide prepared from the flow cytometry specimen was examined for quality purposes. Electronically signed by: Clare Ugarte MD 03/02/17 2469 Technical component performed by: [place] [address] Clarifier: Momo Robledo II, MD, PhD. REVISED REPORT --- Revised on 03/02/17 4196 --- Path Inter 2-8 previously reported as: Test not performed 51 RESULT: Culture without mitogens 52 Band Resolution: 400 Stain Name Cells Analyzed Cells Karyograms Counted Prepared GTL 20 0 2 Total 20 0 2 Cloud to Stain Name: GTL=G-banding; QFQ=Q-banding; DAPI=DAPI-staining; CBL=C-banding; AGNOR=Silver-staining; NON=Non-banded The sum of Cells Analyzed and Cells Counted equals the total cells examined. 53 No clonal abnormality was apparent. Additional cytogenetic studies are reported separately. 54 RESULT: Nia Dia, Ph.D. Test Performed by: [address] [id number] 55 Abnormality Name Result % Abn Cutoff (%) t(9;22) ABL1/BCR fusion Normal <0.6% 56 RESULT: monoclonal gammopathy 57 Locus and probes [Strategy;#Nuclei;Class] 9q34(ABL1),22q11.2(BCR) [DFISH;500;ASR] Probe strategy includes: DFISH=dual color, double fusion. 58 nuc camacho(ABL1,BCR)x2[500] Of 500 nuclei, 0% had fusion of BCR and ABL1. 59 The result is within normal limits for the BCR and ABL1 gene regions. 60 Analyte Specific Reagent (ASR). This test was developed using an analyte specific reagent. Its performance characteristics were determined by [facility] in a manner consistent with CLIA requirements. This test has not been cleared or approved by the U.S. Food and Drug Administration. This FISH test does not rule out other chromosome abnormalities. 61 RESULT: Huber Rogers, Ph.D. Test Performed by: [address] [id number] 62 Test Performed by: [facility] - [address] [address] 63 REFERENCE VALUE 1.21 - 2.70 Test Performed by: [address] [id number] 64 see interpretation 65 Peripheral blood, JAK2 V617F mutation analysis: Negative for JAK2 V617F. Method summary - JAK2 V617F analysis: Quantitative, allele-specific polymerase chain reaction (PCR) assay was performed using extracted genomic DNA to evaluate for the point mutation causing JAK2 V617F. The analytic sensitivity of this assay has been determined at 0.06% (see [facility] [employer] Interpretive Handbook for method details). Peripheral blood, CALR mutation analysis, exon 9. Negative. No deletion or insertion was detected in CALR, exon 9. Method Summary - CALR: Exon 9 of CALR was amplified from genomic DNA by polymerase chain reaction (PCR). The size of the PCR product was analyzed by capillary electrophoresis on the [employer] 3130xl Genetic Analyzer. The analytic sensitivity of this assay is approximately 6% for the majority of CALR mutations and is approximately 20% for the rare type 1-bp deletion (See [facility] [employer] Interpretive Handbook for details). Peripheral blood, MPL exon 10 mutation analysis: Negative. No mutation was detected in MPL, exon 10. Method summary - MPL exon 10 mutation analysis: Genomic DNA was extracted and [place] sequencing used to evaluate for mutations in MPL, exon 10 (see [employer] Interpretive Handbook for method details). The sensitivity of this assay is approximately 20%, such that samples containing lower percentages of mutated DNA will appear negative. Comment: Negative results for [id number], CALR exon 9, and MPL exon 10 mutations do not exclude the diagnosis of a myeloproliferative neoplasm. Correlation with clinical and morphologic finding is recommended for a definitive diagnosis. Samples containing mutations in these genes at levels below the analytical sensitivity of each assay may not be detected by these methods. If there are persistent unexplained erythrocytosis, JAK2 Exon 12 analysis could be considered (JAKXB or JAKXM) to rule out polycythemia vera (PV). Signing Pathologist: Abrahan Rodriguez M.D. ADDITIONAL INFORMATION This test was developed and its performance characteristics determined by [facility] in a manner consistent with CLIA requirements. This test has not been cleared or approved by the U.S. Food and Drug Administration. Test Performed by: [place] [address] 66 FASTING 67 FASTING 68 Acute inflammation: >10.00 69 FASTING 70 PT NOT FASTING WAS TOLD BY DR RAFFI AN 71 M-spike in gamma fraction. See Immunofixation. Test Performed by: [place] [id number] 72 Monoclonal IgG lambda. C/W MGUS, early myeloma, amyloidosis, etc. Suggest 24-hr urine Monoclonal Protein Studies. Suggest Immunoglobulin Free Light Chains, Serum Test Performed by: [address] [id number] 73 Desirable: <100 Near Optimal: 100-129 Borderline High: 130-159 High: 160-189 Very High: >189 74 Because ethnic data is not always readily available, this report includes an eGFR for both -Americans and non- Americans. The National Kidney Disease Education Program (NKDEP) does not endorse the use of the MDRD equation for patients that are not between the ages of 18 and 70, are , have extremes of body size, muscle mass, or nutritional status, or are non- or non-. According to the National Kidney Foundation, irrespective of diagnosis, the stage of the disease is based on the level of kidney function: Stage Description GFR(mL/min/1.73 m(2)) 1 Kidney damage with normal or decreased GFR 90 2 Kidney damage with mild decrease in GFR 60-89 3 Moderate decrease in GFR 30-59 4 Severe decrease in GFR 15-29 5 Kidney failure <15 (or dialysis) 75 Serum levels of PSA measured using the [employer] [place] DXI Hybritech immunoassay should not be interpreted as absolute evidence of the presence or absence of disease. The PSA value should be used in conjunction with other pertinent clinical diagnostic procedures. A PSA value in the range of 0.1 to 0.6 ng/ml is indeterminate if being used as an indicator of recurrent or residual disease. The values obtained with different assay methods or kits cannot be used interchangeably. 76 A low concentration of ceruloplasmin in serum can be found in patients with Adam disease, copper deficiency, Menkes disease, and hereditary aceruloplasminemia. Conditions with severe protein loss or liver failure are also associated with low ceruloplasmin levels. Furthermore, reduced ceruloplasmin concentrations can be observed in carriers for Adam disease. If the clinical suspicion for Adam disease is high in this patient, consider further testing including but not limited to urine copper, serum copper, and Adam disease full gene analysis. Please contact the laboratory at or the on-line test catalog at [employer] for more information. REFERENCE VALUE 19.0 - 31.0 Test Performed by: [address] [address] 77 REFERENCE VALUE <4.0 (Negative) Test Performed by: [address] [address] 78 Negative serology. Celiac disease unlikely. However, approximately 10% of patients with celiac disease are seronegative. Also, patients who are already adhering to a gluten-free diet may be seronegative. If celiac disease is highly clinically suspected, consider HLA-DQ typing. Test Performed by: [address] [address] 79 Please note the change in INR reference range effective 17. 80 Low: <40 Desirable: 40-60 High: >60 81 Desirable: <150 Borderline High: 150-199 High: 200-499 Very High: >500 82 Desirable: <200 Borderline High: 200-239 High: >239 83 Unable to calculate LDL as triglyceride is > 400 84 Acute inflammation: >10.00 85 REFERENCE VALUE <0.1 (Negative) Test Performed by: [facility] - [address] [address] 86 <1:80 (Negative) REFERENCE VALUE <1:80 (Negative) Test Performed by: [facility] - [address] [address] 87 ADDITIONAL INFORMATION This test was developed and its performance characteristics determined by [facility] in a manner consistent with CLIA requirements. This test has not been cleared or approved by the U.S. Food and Drug Administration. Test Performed by: [facility] - [address] [id number] 88 SEE RESULT BELOW Name: VIVEK ROBBINS : [address]: Jamaal Oquendo III, MD Acct: [id number] Unit: [id number] AGE: 46 Location: LAB Re01/12/17 SEX: M Status: REG REF SPEC: [id number] REBECCA: 01/12/17-[address]: Jamaal Oquendo III, MD REQ: [id number] RECD: 01/12/17 STATUS: COMP _ SOURCE: URINE SPDESC: ORDERED: Urine Culture Procedure Result Reported Site Urine Culture Final 01/13/17- 1403 ML No Growth (<1,000 CFU/mL) * ML - MAIN LAB ([facility]) . END OF REPORT * ML=Testing performed at Main Lab DEPARTMENT OF PATHOLOGY, [address] [place] [address] Huber Chong M.D. Director [facility] # [id number] 89 Desirable: <100 mg/dL Near Optimal: 100-129 mg/dL Borderline High: 130-159 mg/dL High: 160-189 mg/dL Very High: >189 mg/dL 90 Because ethnic data is not always readily available, this report includes an eGFR for both -Americans and non- Americans. The National Kidney Disease Education Program (NKDEP) does not endorse the use of the MDRD equation for patients that are not between the ages of 18 and 70, are , have extremes of body size, muscle mass, or nutritional status, or are non- or non-. According to the National Kidney Foundation, irrespective of diagnosis, the stage of the disease is based on the level of kidney function: Stage Description GFR(mL/min/1.73 m(2)) 1 Kidney damage with normal or decreased GFR 90 2 Kidney damage with mild decrease in GFR 60-89 3 Moderate decrease in GFR 30-59 4 Severe decrease in GFR 15-29 5 Kidney failure <15 (or dialysis) 91 Desirable <150 Borderline high 150-199 High 200-499 Very High >500 92 Desirable <200 Borderline high 200-239 High >239 93 Low <40 Desirable: 40-60 High: >60 94 Unable to calculate LDL as triglyceride is > 400 95 Therapeutic target for the treatment of diabetes Mellitus patients is <7% HBA1C, and in selective patients <6.0%.Please refer to [place] [employer] Diabetic care guidelines for further information. 96 FASTING 97 FASTING 98 Desirable <150 Borderline high 150-199 High 200-499 Very High >500 99 Desirable <200 Borderline high 200-239 High >239 100 Low <40 Desirable: 40-60 High: >60 101 Unable to calculate LDL as triglyceride is > 400 102 Because ethnic data is not always readily available, this report includes an eGFR for both -Americans and non- Americans. The National Kidney Disease Education Program (NKDEP) does not endorse the use of the MDRD equation for patients that are not between the ages of 18 and 70, are , have extremes of body size, muscle mass, or nutritional status, or are non- or non-. According to the National Kidney Foundation, irrespective of diagnosis, the stage of the disease is based on the level of kidney function: Stage Description GFR(mL/min/1.73 m(2)) 1 Kidney damage with normal or decreased GFR 90 2 Kidney damage with mild decrease in GFR 60-89 3 Moderate decrease in GFR 30-59 4 Severe decrease in GFR 15-29 5 Kidney failure <15 (or dialysis) 103 Desirable <200 Borderline high 200-239 High >239 104 Low <40 Desirable: 40-60 High: >60 105 Desirable <150 Borderline high 150-199 High 200-499 Very High >500 106 Unable to calculate LDL as triglyceride is > 400 107 Desirable: <100 mg/dL Near Optimal: 100-129 mg/dL Borderline High: 130-159 mg/dL High: 160-189 mg/dL Very High: >189 mg/dL 108 Desirable <200 Borderline high 200-239 High >239 109 Low <40 Desirable: 40-60 High: >60 110 Desirable <150 Borderline high 150-199 High 200-499 Very High >500 111 Unable to calculate LDL as triglyceride is > 400 112 Specimen Lipemic. Result may not be valid. 113 Because ethnic data is not always readily available, this report includes an eGFR for both -Americans and non- Americans. The National Kidney Disease Education Program (NKDEP) does not endorse the use of the MDRD equation for patients that are not between the ages of 18 and 70, are , have extremes of body size, muscle mass, or nutritional status, or are non- or non-. According to the National Kidney Foundation, irrespective of diagnosis, the stage of the disease is based on the level of kidney function: Stage Description GFR(mL/min/1.73 m(2)) 1 Kidney damage with normal or decreased GFR 90 2 Kidney damage with mild decrease in GFR 60-89 3 Moderate decrease in GFR 30-59 4 Severe decrease in GFR 15-29 5 Kidney failure <15 (or dialysis) 114 FASTING 115 Desirable <150 Borderline high 150-199 High 200-499 Very High >500 116 Desirable <200 Borderline high 200-239 High >239 117 Low <40 Desirable: 40-60 High: >60 118 Desirable: <100 mg/dL Near Optimal: 100-129 mg/dL Borderline High: 130-159 mg/dL High: 160-189 mg/dL Very High: >189 mg/dL 119 FASTING 120 Because ethnic data is not always readily available, this report includes an eGFR for both -Americans and non- Americans. The National Kidney Disease Education Program (NKDEP) does not endorse the use of the MDRD equation for patients that are not between the ages of 18 and 70, are , have extremes of body size, muscle mass, or nutritional status, or are non- or non-. According to the National Kidney Foundation, irrespective of diagnosis, the stage of the disease is based on the level of kidney function: Stage Description GFR(mL/min/1.73 m(2)) 1 Kidney damage with normal or decreased GFR 90 2 Kidney damage with mild decrease in GFR 60-89 3 Moderate decrease in GFR 30-59 4 Severe decrease in GFR 15-29 5 Kidney failure <15 (or dialysis) 121 Test Performed by: [place] [address] Clarifier: Momo Robledo II, M.D., Ph.D. 122 SEE RESULT BELOW Name: VIVEK ROBBINS : [address]: Jamaal Oquendo III, MD Acct: [id number] Unit: [id number] AGE: 44 Location: [facility] Re08/28/14 SEX: M Status: REG REF SPEC: [id number] REBECCA: 08/28/14-1002 [facility] DR: Jamaal Oquendo III, MD REQ: [id number] RECD: 08/28/14-1599 STATUS: SOUT _ ORDERED: LEVEL I FINAL DIAGNOSIS Kidney, side not specified, lithotomy: Calculi (Gross diagnosis). PRE-OPERATIVE DIAGNOSIS Kidney stone analysis GROSS DESCRIPTION The specimen is received fresh with no source identified and a requisition labeled, Stone, and consists of two dominguez irregular to ovoid hard fragments aggregating 0.9 x 0.4 x 0.4 cm, consistent with renal calculi. The specimen is submitted for chemical analysis. Per established hospital medical staff protocol, no tissue is submitted. Gross only. Signed (signature on file) Huber Chong MD 1537 END OF REPORT * ML=Testing performed at Main Lab DEPARTMENT OF PATHOLOGY, [address] [place] [address] Huber Chong M.D. Director [facility] # [id number] 123 Because ethnic data is not always readily available, this report includes an eGFR for both -Americans and non- Americans. The National Kidney Disease Education Program (NKDEP) does not endorse the use of the MDRD equation for patients that are not between the ages of 18 and 70, are , have extremes of body size, muscle mass, or nutritional status, or are non- or non-. According to the National Kidney Foundation, irrespective of diagnosis, the stage of the disease is based on the level of kidney function: Stage Description GFR(mL/min/1.73 m(2)) 1 Kidney damage with normal or decreased GFR 90 2 Kidney damage with mild decrease in GFR 60-89 3 Moderate decrease in GFR 30-59 4 Severe decrease in GFR 15-29 5 Kidney failure <15 (or dialysis) 124 Acute inflammation: >10.00 Procedures Date Code Description Status 06/15/2017 02340 EKG Tracing & Interpretation Completed 05/18/2017 82002 Moderate Sedation Services; Same Phys Each Additional 15 Completed Mins 05/18/2017 16090 Moderate Sedation Services; Same Phys Intl 15 Mins; PT >=5 Completed Years 05/18/2017 33472 Fluoroscopic Guidance For Cent Completed 05/18/2017 94158 Ultrasound Guidance For Vascular Access Completed 05/18/2017 67503 Insertion Tunneled Cent Venous Cathr W/O Subcut Port/Pump Completed 5Yrs> 05/12/2017 07078 EKG, Interpretation Only Completed 05/11/2017 00592 Treadmill Interp/Report Only Completed 05/11/2017 30664 Stress Test Supervsn W/Out I/R Completed 04/20/2017 18906 ECHO Transthorasic Realtime 2D W Doppler & Color Flow Hosp Completed Encounters Type Date Location Provider Dx Diagnosis Office Visit 10/25/2017 [facility] Yoshi Ball E85.9 Amyloidosis, 11:00a Of [facility] FACC unspecified N18.6 End stage renal disease I50.32 Chronic diastolic (congestive) heart failure Z87.441 Personal history of nephrotic syndrome Office Visit 10/05/2017 3:00p [facility] Jairon Michel4.5 Low back pain Carlos Eduardo Morejon Office Visit 08/17/2017 11:40a [facility] Yoshi Lang E85.9 Amyloidosis, Of [facility] Ball DO unspecified FACC I50.32 Chronic diastolic (congestive) heart failure Z87.441 Personal history of nephrotic syndrome N18.6 End stage renal disease Office Visit 08/02/2017 1:10p [facility] Jairon Tejeda E85.9 Amyloidosis, Kate Oquendo M.D. unspecified [place] N18.6 End stage renal disease E78.2 Mixed hyperlipidemia Office Visit 08/02/2017 1:00p [facility] Internal Jamaal Tejeda M54.5 Low back pain Carlos Eduardo Morejon E78.2 Mixed hyperlipidemia Office Visit 07/12/2017 9:00a Oncology Carroll Rodriguez E85.9 Amyloidosis, Services Of Frieda Thibodeaux unspecified AT [place] D47.2 Monoclonal gammopathy N19 Unspecified kidney failure Office Visit 06/15/2017 12:00p [facility] Yoshi S. I50.32 Chronic diastolic Of Frieda Ball DO (congestive) heart FACC failure E85.9 Amyloidosis, unspecified Z87.441 Personal history of nephrotic syndrome N18.6 End stage renal disease Office Visit 05/31/2017 9:20a Oncology Carroll Rodriguez, N19 Unspecified kidney Services Of [facility] Carlos Eduardo failure AT [place] R71.8 Other abnormality of red blood cells D47.2 Monoclonal gammopathy Office Visit 05/30/2017 1:00p [facility] Internal Jmaaal EAc M54.5 Low back pain Kate Oquendo M.D. [place] Office Visit 05/14/2017 12:38p [facility] Yoshi S. I50.9 Heart failure, Of Frieda Ball DO unspecified FACC I47.1 Supraventricular tachycardia Office Visit 05/13/2017 12:37p [facility] Yoshi S. I50.9 Heart failure, Of Frieda Juneno, DO unspecified FACC Office Visit 05/12/2017 12:37p [facility] Yoshi S. I50.9 Heart failure, Of Frieda Juneno, DO unspecified FACC Office Visit 05/11/2017 12:36p [facility] Yoshi S. 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 [place] Office Visit 01/30/2017 2:00p [facility] Internal Jamaal EAc M54.5 Low back pain Ktae Oquendo M.D. [place] Office Visit 01/30/2017 1:00p [facility] Internal Jamaal E. R10.30 Lower abdominal Kate Oquendo M.D. pain, unspecified [place] E78.2 Mixed hyperlipidemia R31.9 Hematuria, unspecified Office Visit 12/12/2016 10:00a [facility] Internal Jamaal E. R10.30 Lower abdominal Kate Oquendo M.D. pain, unspecified [place] R10.30 Lower abdominal pain, unspecified R94.5 Abnormal results of liver function studies E78.2 Mixed hyperlipidemia Office Visit 12/12/2016 10:00a [facility] Internal Jamaal Tejeda E78.2 Mixed hyperlipidemia Kate Oquendo M.D. [place] R10.30 Lower abdominal pain, unspecified R94.5 Abnormal results of liver function studies Office Visit 10/11/2016 11:20a [facility] Internal Jamaal Tejeda M54.5 Low back pain Kate Oquendo M.D. [place] Office Visit 08/05/2016 11:40a [facility] Internal Jamaal Tejeda M54.5 Low back pain Kate Oquendo M.D. [place] Office Visit 07/13/2016 10:20a [facility] Internal Jamaal Love. Z00.00 Encntr aimee Oquendo M.D. general adult [facility] medical exam w/o abnormal findings E78.2 Mixed hyperlipidemia E78.2 Mixed hyperlipidemia R03.0 Elevated blood-pressure reading, w/o diagnosis of htn Office Visit 07/13/2016 10:00a [facility] Internal Jamaal Tejeda M54.5 Low back pain Kate Oquendo M.D. [place] Office Visit 05/18/2016 11:40a [facility] Internal Jamaal Tejeda M54.5 Low back pain Kate Oquendo M.D. [place] Office Visit 05/18/2016 11:20a [facility] Internal Jamaal Tejeda Z00.00 Encntr aimee Oquendo M.D. general adult [facility] medical exam w/o abnormal findings E78.2 Mixed hyperlipidemia R73.01 Impaired fasting glucose R03.0 Elevated blood-pressure reading, w/o diagnosis of htn K21.9 Gastro-esophageal reflux disease without esophagitis E66.01 Morbid (severe) obesity due to excess calories Office Visit 03/22/2016 10:20a [facility] Internal Jamaal EAc M54.5 Low back pain Kate Oquendo M.D. [place] Office Visit 01/19/2016 9:00a [facility] Internal Jamaal EAc M54.5 Low back pain Kate Oquendo M.D. [place] Office Visit 11/24/2015 9:00a [facility] Internal Jamaal EAc M54.5 Low back pain Kate Oquendo M.D. [facility] Office Visit 10/13/2015 2:00p [facility] Internal Jamaal E. M54.5 Low back pain Kate Oquendo M.D. [place] Office Visit 08/18/2015 10:20a [facility] Internal Jamaal E. M54.5 Low back pain Kate Oquendo M.D. [place] Office Visit 06/18/2015 10:00a [facility] Internal Jamaal E. M54.5 Low back pain Kate Oquendo M.D. [place] Office Visit 05/07/2015 9:40a [facility] Internal Jamaal E. M54.5 Low back pain Kate Oquendo M.D. [place] Office Visit 03/26/2015 10:20a [facility] Internal Jamaal E. M54.5 Low back pain Kate Oquendo M.D. [place] Office Visit 02/12/2015 10:20a [facility] Internal Jamaal E. M54.5 Low back pain Kate Oquendo M.D. [place] Office Visit 01/01/2015 10:20a [facility] Internal Jamaal E. M54.5 Low back pain Kate Oquendo M.D. [place] Office Visit 11/27/2014 10:40a [facility] Internal Jamaal E. M54.5 Low back pain Kate Oquendo M.D. [place] Office Visit 10/16/2014 11:20a [facility] Internal Jamaal Tejeda 724.2 Lumbago Kate Oquendo M.D. [place] Office Visit 08/28/2014 9:20a [facility] Internal Jamaal Tejeda V70.0 Examination Kate Oquendo M.D. [facility] Routine AT Health Care Facility 592.0 Calculus Of Kidney V77.91 Screening For Lipoid Disorders V77.1 Screening Diabetes Mellitus 724.2 Lumbago V06.1 Ykazhiufkh-Hvjxmkh-Zsixiuoq Combined (DTaP) Office Visit 08/28/2014 [facility] Jamaal Tejeda 724.2 Lumbago 9:00a Kate Oquendo M.D. [place] Office Visit 07/17/2014 [facility] Internal Jamaal Tejeda 724.2 Lumbago 11:00a Kate Oquendo M.D. [place] Office Visit 06/05/2014 [facility] Internal Jamaal Tejeda 724.2 Lumbago 2:20p Kate Oquendo M.D. [place] Office Visit 04/08/2014 [facility] Internal Jamaal Tejeda 724.2 Lumbago 1:20p Kate Oquendo M.D. 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 at [facility] Internal Medicine [facility]02/07/2018 11:40 am - Carroll Rodriguez M.D. at Oncology Services Of [facility] AT Bocfmdhu55/10/2018 - Jamaal Oquendo M.D.M54.5 Low back pain
[2018-02-07 13:04] LABS: ABS Basophils 0 10^3/ul (0-0.2); ABS Eosinophils 0 10^3/ul (0-0.6); ABS Lymphocytes 0.9 10^3/ul (1.0-4.8); ABS Monocytes 0.7 10^3/ul (0-0.8); ABS Neutrophils 9.1 10^3/ul (1.5-7.7); ABS Nucleated RBC 0 10^3/ul; Eosinophil % 0 %; Hematocrit 38 % (42-52); Hemoglobin 13.1 g/dl (14.0-18.0); Lymphocyte % 8.8 %; Mean Corpuscular HGB Conc 35 g/dl (31-36); Mean Corpuscular Hemoglobin 34 pg (27-31); Mean Corpuscular Volume 97 fL (80-94); Mean Platelet Volume 8.6 fL (7.4-10.4); Nucleated Red Blood Cells % 0; Platelet Count 199 10^3/ul (150-450); Red Blood Count 3.88 10^6/ul (4.00-5.40); Red Cell Distribution Width 14 % (10.5-15); White Blood Count 10.7 10^3/ul (3.5-10.8)
[2018-02-07 13:25] LABS: EGFR Non-African American 5.6 (>60)
[2018-02-07] MEDS ORDERED: Metoclopramide IV* 5 MG/ML 2 ML VIAL IV SLOW PU ONE (16:51)
[2018-02-07] MEDS ORDERED: oxyCODONE/Acetamin 5/325 MG* TAB PO ONE (18:43)
[2018-02-07] MEDS ORDERED: Ondansetron INJ* 2 MG/ML VIAL IV PRN (19:23)
[2018-02-07] MEDS ORDERED: Metoclopramide IV* 5 MG/ML 2 ML VIAL IV PRN (19:24)
--- NOTE | 2018-02-07 19:56 | CONS ---
GASTROENTEROLOGY CONSULT NOTE: DATE OF CONSULT: 02/07/18 REQUESTING PROVIDER: ER. REASON FOR CONSULT: Coffee-ground emesis, nausea, vomiting. HISTORY OF PRESENT ILLNESS: Mr. 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 Mr. Kasper says that he was in his usual state of health until he had dialysis yesterday. He came home after dialysis and had multiple episodes of vomiting. He describes vomiting every 30 minutes or so. 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 The patient is color blind and cannot clearly distinguish between black and red, so he is not sure if there was ever any bright red blood. The patient presented to the ED for evaluation. He has been hemodynamically stable. He was given antiemetics and fluids, which helped to improve his nausea. He has not had any further vomiting since he has been in the ER, although at the time of interview, he reports some increase in the nausea again. The patient denies any NSAID use. He has not been on PPIs since July. On chart review, it appears that Mr. Kasper was seen as a consult by Dr. Sarabia in April 2017. At that point, he was admitted for renal failure and was started on cyclophosphamide. He developed hematemesis and underwent an EGD , which demonstrated pangastritis. There were numerous petechial hemorrhages noted and mucosa was very friable. There were no ulcers or erosions. It seems that biopsy was taken for H. pylori gastritis, although the result of this is unavailable to me at this time. The patient was started on b.i.d. PPI, although he says that he continued this until July or so at which point he stopped. He has not been seen in GI for followup. 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 MEDICATIONS: The patient is on: 1. Gabapentin. 2. Hydrocodone. 3. Tylenol. 4. Medical marijuana. FAMILY HISTORY: No known GI or liver disease. SOCIAL HISTORY: Former smoking. Rare alcohol. REVIEW OF SYSTEMS: The patient reports nausea after most episodes of dialysis. He sometimes will have vomiting, although this episode of vomiting prompting his presentation to the ER was much more significant than normal. Otherwise, 14 point review of systems is negative except as above. PHYSICAL EXAM: Vital Signs: Afebrile at 98.3, heart rate 70s, blood pressure 129/82, 95% on room air. General: Fairly well-appearing gentleman, in no acute distress. Resting comfortably in bed. HEENT: Mucous membranes are moist. Anicteric sclerae. Cardiovascular: Regular rate and rhythm. No murmurs, rubs, or gallops. Pulm: Lungs are clear to auscultation bilaterally. Abdomen: Soft, nontender, and nondistended. Extremities: No edema. No jaundice. Neuro: A and O x3. DIAGNOSTIC STUDIES/LAB DATA: Labs reviewed. White count 10.7, hemoglobin 13.1 , hematocrit 38. For comparison, the patient's hemoglobin was 11.5 on 01/30/18 and 12.5 on 12/15/17. His creatinine is 9.91, glucose 146. AST 33, ALT 54 ( similar to prior value on 01/30/18 and in September), alk phos elevated to 382 ( also similar to prior values). Lipase 43. Imaging: Chest x-ray was unremarkable. Endoscopy: EGD summarized in HPI from April 2017. IMPRESSION AND RECOMMENDATIONS: Mr. 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 Mr. aKsper is hemodynamically stable in the ER. His hemoglobin appears to be within prior baseline. e is not having any further episodes of coffee-ground emesis or vomiting since being treated with more aggressive antiemetics in the ER. Possible that the patient has ongoing gastritis, which was noted on April 2017 EGD. The patient has not been using PPIs over the last few months. Would recommend checking Helicobacter pylori to rule this out as I am not seeing the results from the biopsy in April 2017. I do not think an endoscopy is urgently indicated. Could consider repeat endoscopy tomorrow if the patient is admitted and continues to have ongoing symptoms or if blood counts drop with serial monitoring. Otherwise, he could be seen in the outpatient setting. An outpatient EGD could be considered after empiric trial with a PPI. - Follow CBC - PPI b.i.d. - can advance to clear diet and see how tolerated. - antiemetics per ER or primary team. - we would consider EGD tomorrow if symptoms persist or if blood counts drop. Otherwise, the patient can be set up for outpatient followup. Thank you very much for this consult. [id number]/[facility] #: [id number] MELLISA
[2018-02-07] MEDS ORDERED: Pantoprazole IV* 40 MG IV SCH (20:00)
[2018-02-07] MEDS: Pantoprazole IV* 40 MG IV SCH (20:58)
[2018-02-07] MEDS: NS 0.9% 1000 ML* 1,000 ML IV SCH (21:05)
--- NOTE | 2018-02-07 21:45 | HP ---
CC: Dr. Oquendo * ADMISSION HISTORY AND PHYSICAL: DATE OF ADMISSION: 02/07/18 ATTENDING PHYSICIAN: Dr. Filemon Hills.* (DICTATED BY SABAS REED NP) PRIMARY CARE PROVIDER: Dr. Jamaal Oquendo. CHIEF COMPLAINT: Nausea, vomiting, and chills. HISTORY OF PRESENT ILLNESS: This is a pleasant 47-year-old male patient, who has a complex medical history. Most recently, he has had nephrectomy secondary to renal cell carcinoma. His primary oncologist is Dr. Rodriguez. 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 PAST MEDICAL HISTORY: Gastrointestinal bleed secondary to gastritis, chronic back pain, and amyloidosis. PAST SURGICAL HISTORY: Significant for nephrectomy and also lithotripsy. MEDICATIONS: Home medications include: 1. Gabapentin 300 mg in the evening. 2. Myrtle 10/325 one tablet q.6 hours as needed. 3. Reglan. 4. Medical marijuana 1 dose q.6 hours as needed. ALLERGIES: No known drug allergies. FAMILY HISTORY: Noncontributory. SOCIAL HISTORY: The patient lives at home with family. He denies any illicit drug use. He does receive medical marijuana. Denies any alcohol use. He is a former smoker, but has quit several years ago. REVIEW OF SYSTEMS: The patient is complaining of abdominal pain and back pain. Denies any fever, fatigue, or chills at present. No abdominal pains. No urinary complaints and no further constitutional complaints. PHYSICAL EXAMINATION GENERAL: Reveals a well-appearing male of his stated age. VITAL SIGNS: Currently blood pressure 137/80, heart rate 74, respiratory rate of 18, O2 saturation 95% on room air with a temperature of 98.3. HEENT: The patient is atraumatic, normocephalic. PERRLA with nonicteric sclerae. NECK: Supple, nontender. No JVD noted. No carotid bruit auscultated. LUNGS: Clear bilaterally to auscultation with no wheezing, rhonchi, or rales. CARDIOVASCULAR: S1, S2 present. No murmurs, gallops, or rubs noted. Rate and rhythm are regular. ABDOMEN: Soft, nontender, nondistended. Positive bowel sounds all 4 quadrants. : Deferred. MUSCULOSKELETAL: There is no clubbing, no cyanosis, no edema. He has +2 distal pulses palpable. He has a steady gait. Gross motor and sensation are intact. NEUROLOGIC: Grossly intact with no focality. PSYCHIATRIC: He is cooperative and appropriate. DIAGNOSTIC STUDIES/LAB DATA: WBCs 10.7, RBCs 3.88, hemoglobin 13.1, hematocrit 38, platelets 199. Sodium 141, potassium 4.8, chloride 93, CO2 32, BUN 49, creatinine 9.91, glucose 146, lactic acid 1.2, calcium 9.9. AST 33, ALT 54, alk phos 382. CRP 3.71. Albumin 4.4, globulin 2.8, lipase is 43. Imaging: Chest x-ray dated 02/07/18 shows no acute cardiopulmonary process. No further imaging available. 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 DIAGNOSES: 1. Intractable nausea and vomiting, cyclic in nature. The patient states that this initially starts on his dialysis days and then on his off days. He usually recovers from these nausea and vomiting episodes. I have discussed at length with the patient his dialysis regimen, which is out at [facility], he does not see Dr. Hannon anymore here in [place] because he receives his dialysis elsewhere. However, I think it would be prudent to have Dr. Hannon see the patient while he is here to see if this encouraged any nausea and vomiting when he has his inpatient dialysis tomorrow. In the meantime, he has received IV fluids. He will continue IV fluids at maintenance. We can alternate Reglan with Zofran for his nausea and vomiting. He is on a clear liquid diet and then we will initiate Carafate. He already received viscous lidocaine in the ED, which he did have some relief. The ER physician did reach out to Dr. Ra Abernathy, GI. I am waiting to discuss with her if there are any plans for potential endoscopy during this admission. 2. For his recent history of nephrectomy, the patient states he was cleared by his surgeon at [facility] this past month. He is due for an x-ray at the end of the month, but he is otherwise currently stable. 3. For his history of amyloidosis and the amyloid heart, these again appeared to be stable at this time. We will continue to monitor if at any point we need to involve Hematology/Oncology. However, at this time, this does appear to be stable. 4. For his chronic pain, the patient does see Pain Management; however, the patient states he was getting nauseous with Myrtle and also with his gabapentin. I have re-ordered these; however, he did respond well to IV morphine while in the ED. I will continue the IV morphine until tomorrow. If the patient is able to tolerate p.o. intake after that, we can restart his gabapentin and his Myrtle. 5. DVT prophylaxis. The patient is ambulatory and low risk; however, given his complex medical history, it would be prudent to put him on heparin IM however, because his hemoglobin is slightly diminished, he may have some occult bleeding. Again, the patient is ambulatory. He can have SCDs in bed; otherwise , we will refrain from chemoprophylaxis. 6. His healthcare proxy is his live-in partner, who can be contacted for any questions or concerns. 7. Diet. Clear liquid diet as tolerated with concurrent IV fluids. Rest of the patient's course will be determined by further diagnostics, laboratories, any other input from other providers as warranted during this admission. This has been discussed with Dr. Filemon Hills, the attending on this admission; he is in agreement with the plan. SABAS REED, HITESH [id number]/[facility] #: [id number] MELLISA
[2018-02-07] MEDS: Morphine VIAL* 4 MG/ML VIAL (1 ml vial) IV PRN (22:13)
[2018-02-07] MEDS: Hydrocodone/Acetamin 10/325 1 TAB PO PRN (22:33)
[2018-02-08] MEDS: Morphine VIAL* 4 MG/ML VIAL (1 ml vial) IV PRN ×2 (03:12→08:29)
[2018-02-08] MEDS: NS 0.9% 1000 ML* 1,000 ML IV SCH (05:30)
[2018-02-08] MEDS: Hydrocodone/Acetamin 10/325 1 TAB PO PRN ×2 (05:35→13:19)
[2018-02-08] MEDS: Pantoprazole IV* 40 MG IV SCH (08:30)
[2018-02-08] MEDS: Sucralfate TAB* 1 GM PO SCH ×2 (08:30→13:19)
[2018-02-08 10:44] LABS: ABS Basophils 0.1 10^3/ul (0-0.2); ABS Eosinophils 0.1 10^3/ul (0-0.6); ABS Lymphocytes 2.2 10^3/ul (1.0-4.8); ABS Monocytes 0.7 10^3/ul (0-0.8); ABS Neutrophils 4.3 10^3/ul (1.5-7.7); ABS Nucleated RBC 0 10^3/ul; Eosinophil % 1.8 %; Hematocrit 32 % (42-52); Hemoglobin 11.1 g/dl (14.0-18.0); Lymphocyte % 29.4 %; Mean Corpuscular HGB Conc 35 g/dl (31-36); Mean Corpuscular Hemoglobin 34 pg (27-31); Mean Corpuscular Volume 99 fL (80-94); Mean Platelet Volume 8.1 fL (7.4-10.4); Nucleated Red Blood Cells % 0.1; Platelet Count 164 10^3/ul (150-450); Red Blood Count 3.23 10^6/ul (4.00-5.40); Red Cell Distribution Width 14 % (10.5-15); White Blood Count 7.3 10^3/ul (3.5-10.8)
[2018-02-08 11:31] VITALS: BP 117/67
[2018-02-08 12:01] LABS: Urine Appearance Clear; Urine Blood Negative (Negative); Urine Color Yellow; Urine Ketones Negative (Negative); Urine Protein 3+(>=500 mg/dL) (Negative); Urine Red Blood Cell Absent (Absent); Urine Specific Gravity 1.014 (1.010-1.030); Urine Urobilinogen Negative (Negative); Urine White Blood Cell Trace(0-5/hpf) (Absent)
[2018-02-08] MEDS ORDERED: Gabapentin CAP(*) 300 MG PO SCH (18:00)
--- NOTE | 2018-02-09 04:15 | DS ---
CC: Dr. Jamaal Oquendo * DISCHARGE SUMMARY: DATE OF ADMISSION: 02/07/18 DATE OF DISCHARGE: 02/08/18 PRIMARY CARE PROVIDER: Dr. Jamaal Oquendo. ATTENDING FOR THIS ADMISSION AND FOR TODAY: Dr. Filemon Hills * (DICTATED BY SABAS REED NP) HOSPITAL COURSE: In short, this is a pleasant 47-year-old male patient, who came to the emergency department yesterday with a complaint of intractable nausea and vomiting; stated he was having coffee-ground emesis; also stated the symptoms start on his dialysis days and this has been persistent for months. The patient said he was not able to tolerate any p.o. intake in the last 48 hours and came to the emergency department for his continued symptoms. The patient received aggressive hydration. The patient declined to have inpatient dialysis today. The patient would have had dialysis for his ESRD on Monday, , Monday in [place]; however, he declined to have inpatient dialysis today. After receiving fluids and antiemetics, the patient stated he felt much better. He was also placed on Carafate prior to meals and a PPI. He was briefly seen by GI as well for concern of potential for GI bleeding. His reports were evaluated. He had an EGD earlier in the year, which showed a pangastritis. GI is considering that his symptoms may be related to his persistent pangastritis as the patient has not been taking the PPI for the last couple of months. The patient did respond well to IV PPI, Carafate, and IV fluids. His abdominal pain resolved. He was able to tolerate clear liquids and then full liquids, and diet was advanced without issue. The patient requested for discharge to home and would follow up with his varnisher plasticoater and dialysis tomorrow. REVIEW OF SYSTEMS: On day of discharge, the patient denies any fever, fatigue, or chills. No chest pain. No shortness of breath, no abdominal pain. No nausea, vomiting or diarrhea, and no further constitutional complaints. PHYSICAL EXAMINATION: The patient is alert, well appearing. Vital signs are blood pressure 117/67, heart rate 66, respiratory rate 18, O2 saturation 95% on room air, temperature 98.3. HEENT: The patient is atraumatic and normocephalic. PERRLA with nonicteric sclerae. Oral mucosa is moist. Tongue is midline. Neck is supple and nontender. No JVD noted and no carotid bruit auscultated. Cardiovascular: S1, S2 present. No murmurs, gallops, or rubs noted. Rate and rhythm are regular. Lungs are clear bilaterally to auscultation with no wheezing, rhonchi, or rales. Abdomen is soft, nontender, and nondistended. Positive bowel sounds in all 4 quadrants. No organomegaly noted. is deferred. Musculoskeletal: There is no clubbing, no cyanosis, and no edema. He has +2 distal pulses palpable. Gross motor and sensation are intact. He has a steady gait. Neurologic: Grossly intact with no focal deficits. Psychiatric: He is cooperative and appropriate. LABORATORY DATA: WBC is 7.3, RBC is 3.23, hemoglobin 11.1, hematocrit 32, platelets 164. Sodium 141, potassium 4.8, chloride 93, CO2 of 13, BUN 49, creatinine 9.91, GFR 5.6, glucose 146, lactic acid 1.2, calcium 9.9. Bilirubin 0.80, AST 33, ALT 54, alk phos 382. Total protein 7.2, albumin 4.4, globulin 2.8, lipase is 43. Urinalysis shows yellow clear urine, 3+ protein, 2+ glucose , negative for nitrites or any other process. IMAGING: Chest x-ray dated 02/07/18 shows no radiographic evidence for acute cardiopulmonary abnormality. DISPOSITION: The patient was discharged to home in stable condition. FOLLOWUP: The patient was instructed to follow up with Dr. Oquendo in the next 1 to 2 weeks, his varnisher plasticoater and dialysis center in [place] for tomorrow. DIET: Renal, heart-healthy diet as tolerated. ACTIVITY: As tolerated. MEDICATIONS FOR DISCHARGE: Include: 1. Hydrocodone/acetaminophen 10/325 one tablet p.o. q.6 hours as needed. 2. Medical marijuana 1 dose inhaled q.6 hours as needed. 3. Gabapentin 300 mg in the evening. 4. Carafate 1 g p.o. before meals. 5. Protonix 40 mg p.o. daily. 6. Zofran orally disintegrating tablets 4 mg p.o. q.6 hours. Please note Zofran, Protonix, and Carafate are new medications. There were no changes made to his home medications. DISCHARGE DIAGNOSES: 1. Intractable nausea and vomiting, etiology is likely pangastritis, now resolved. 2. History of recent nephrectomy, stable. 3. History of amyloidosis and amyloid heart, currently stable. 4. History of chronic pain, managed on [place] and medical marijuana, stable. DISPOSITION: The patient was discharged in stable condition. He stated his understanding of his followups and medications at discharge. SABAS REED, ARCHEOLOGY PROFESSOR [id number]/[facility] #: [id number] MELLISA
== END 2018-02-08 17:15 | disposition home or self-care (01) ==
LOC: ED 11:58 → MED 18:51
PROVIDERS: ADMIT Internal Medicine; ATTEND Internal Medicine
DX: R11.2 Nausea with vomiting, unspecified (principal); Z87.891 Personal history of nicotine dependence; G89.29 Other chronic pain; N18.6 End stage renal disease; Z99.2 Dependence on renal dialysis; M54.9 Dorsalgia, unspecified; E85.9 Amyloidosis, unspecified; R53.1 Weakness
CPT/HCPCS: 36415; 71045; 80053; 81003; 81015; 83605; 83690; 85025; 86140; 87086; 93005; 96374; 96375; 96376; 99284; A9270-GY; G0378; J2270; J2405; J2765

== ENCOUNTER 2021-12-03 12:07 | Inpatient (IN) ==
[2021-12-03] MEDS ORDERED: Vancomycin 1,000 MG in NS 0.9% 250 ml 250 ML IVPB ONE (13:08)
[2021-12-03] MEDS ORDERED: Piperacillin/Tazobac ADVAN 3.375 GM in NS 0.9% 100 ml BAG 100 ML IV ONE (13:08)
[2021-12-03 13:48] LABS: ABS Lymphocytes 0.3 10^3/ul (1.0-4.8); ABS Monocytes 0.6 10^3/ul (0-0.8); ABS Neutrophils 8.8 10^3/ul (1.5-7.7); Eosinophil % 0.1 %; Hematocrit 27 % (42-52); Hemoglobin 9.1 g/dL (14.0-18.0); Lymphocyte % 3.5 %; Mean Corpuscular HGB Conc 34 g/dL (31-36); Mean Corpuscular Hemoglobin 34 pg (27-31); Mean Corpuscular Volume 101 fL (80-94); Platelet Count 170 10^3/uL (150-450); Red Blood Count 2.67 10^6 /uL (4.18-5.48); Red Cell Distribution Width 15 % (10-15); White Blood Count 9.8 10^3/uL (3.5-10.8)
[2021-12-03] MEDS ORDERED: Metoclopramide 5 MG/ML VIAL (10 mg) IV ONE (14:13)
[2021-12-03] MEDS ORDERED: Acetaminophen IV 1 GM/100ML 1,000 MG/100 ML BAG IV ONE (14:14)
[2021-12-03 14:15] LABS: Activated Partial Thrombo Time 39.6 seconds (26.0-38.0); INR 1.7 (0.89-1.11)
[2021-12-03] MEDS ORDERED: Albuterol HFA INHALER 8 gm MDI INH ONE (14:39)
[2021-12-03 15:15] LABS: Albumin 4.2 g/dL (3.2-5.2); Potassium 3.5 mmol/L (3.5-5.0); Total Bilirubin 1.1 mg/dL (0.2-1.0)
[2021-12-03 15:21] LABS: Albumin/Globulin Ratio 1.4 (1-3); C Reactive Protein 105.88 mg/L (<8.01); Total Protein 7.2 g/dL (6.4-8.9)
[2021-12-03 15:38] LABS: High Sensitivity Troponin 1 Hr 28 pg/mL (<20)
[2021-12-03] MEDS ORDERED: Azithromycin 500 mg/250 ml NS 500 MG/250 ML BAG IVPB SCH (20:00)
[2021-12-03] MEDS ORDERED: Vancomycin per Pharmacy 1 EA NOTE FOLLOW UP SCH (20:00)
[2021-12-03] MEDS ORDERED: Zosyn per Pharmacy NOTE FOLLOW UP SCH (20:00)
[2021-12-03] MEDS: HYDROcodone/Acetamin 10/325 TAB (NF) PO PRN (21:52)
[2021-12-03] MEDS: ZOSYN 3.375 GM Q12H per EXTENDED INFUSION IV SCH (23:42)
[2021-12-04] MEDS: HYDROcodone/Acetamin 10/325 TAB (NF) PO PRN ×3 (03:56→20:14)
[2021-12-04] MEDS ORDERED: Vancomycin Random Level NOTE FOLLOW UP ONE (06:00)
[2021-12-04 07:51] LABS: ABS Basophils 0.1 10^3/ul (0-0.2); ABS Eosinophils 0.1 10^3/ul (0-0.6); ABS Lymphocytes 0.8 10^3/ul (1.0-4.8); ABS Monocytes 0.7 10^3/ul (0-0.8); Eosinophil % 0.8 %; Hematocrit 27 % (42-52); Hemoglobin 8.9 g/dL (14.0-18.0); Mean Corpuscular HGB Conc 33 g/dL (31-36); Mean Corpuscular Hemoglobin 34 pg (27-31); Mean Corpuscular Volume 101 fL (80-94); Mean Platelet Volume 8.1 fL (7.4-10.4); Platelet Count 166 10^3/uL (150-450); Red Blood Count 2.65 10^6 /uL (4.18-5.48); Red Cell Distribution Width 16 % (10-15); White Blood Count 7.7 10^3/uL (3.5-10.8)
[2021-12-04 08:33] LABS: Calcium 8.7 mg/dL (8.6-10.3); Potassium 4.2 mmol/L (3.5-5.0); eGFR CKD-EPI 6.8 (>60)
[2021-12-04] MEDS: Heparin 1,000 UNIT/ML 10 ml (10,000 UNITS) CATHLAB/DIALYSIS DIALYSIS ONE ×4 (08:37→11:30)
[2021-12-04 10:50] LABS: Hepatitis B Surface Antigen Nonreactive (Nonreactive)
[2021-12-04 11:08] LABS: Hepatitis B Surface Ab Not Immune (Immune)
[2021-12-04] MEDS: ZOSYN 3.375 GM Q12H per EXTENDED INFUSION IV SCH ×2 (12:39→22:28)
[2021-12-04] MEDS ORDERED: Vancomycin 1,000 MG in NS 0.9% 250 ml 250 ML IVPB ONE (18:30)
[2021-12-05 09:51] VITALS: BP 115/91
[2021-12-06] MEDS ORDERED: Vancomycin 1,000 MG in NS 0.9% 250 ml 250 ML IVPB SCH (13:00)
[2021-12-06] MEDS ORDERED: Vancomycin per Pharmacy 1 EA NOTE FOLLOW UP SCH (20:00)
== END 2021-12-05 09:10 | disposition left against medical advice (07) | DRG 871 ==
LOC: ED 12:07 → EDHOLD 12:07 → SUATTDRO 19:11 → MEDTELE 20:20
PROVIDERS: ADMIT Internal Medicine; ATTEND Internal Medicine

== ENCOUNTER 2022-02-03 10:32 | Inpatient (IN) ==
[2022-02-03 11:31] LABS: Hematocrit 25 % (42-52); Hemoglobin 8.6 g/dL (14.0-18.0); Mean Corpuscular HGB Conc 34 g/dL (31-36); Mean Corpuscular Hemoglobin 33 pg (27-31); Mean Corpuscular Volume 98 fL (80-94); Mean Platelet Volume 8.1 fL (7.4-10.4); Platelet Count 160 10^3/uL (150-450); Red Blood Count 2.58 10^6 /uL (4.18-5.48); Red Cell Distribution Width 15 % (10-15); White Blood Count 12.2 10^3/uL (3.5-10.8)
[2022-02-03] MEDS ORDERED: Lactated Ringers 1000 ml BAG 1,000 ML IV ONE (11:49)
[2022-02-03] MEDS ORDERED: Cefepime 1 GM in Dextrose 1 GM/50 ML BAG IV ONE (11:49)
[2022-02-03 12:07] LABS: Albumin 3.5 g/dL (3.2-5.2); Albumin/Globulin Ratio 1.3 (1-3); Calcium 9.2 mg/dL (8.6-10.3); Creatinine, Serum 6.51 mg/dL (0.67-1.17); Globulin 2.7 g/dL (2-4); Magnesium 1.8 mg/dL (1.9-2.7); Phosphorus 2.8 mg/dL (2.5-5.0); Potassium 3.4 mmol/L (3.5-5.0); Total Bilirubin 1.7 mg/dL (0.2-1.0); Total Protein 6.2 g/dL (6.4-8.9); eGFR CKD-EPI 9.5 (>60)
[2022-02-03 12:08] LABS: RBC Morphology Normal (Normal)
[2022-02-03 12:09] LABS: ABS Basophils 0.1 10^3/ul (0-0.2); ABS Lymphocytes 0.7 10^3/ul (1.0-4.8); ABS Monocytes 1.1 10^3/ul (0-0.8); ABS Neutrophils 10.3 10^3/ul (1.5-7.7); Eosinophil % 0.1 %; Lymphocyte % 5.9 %
[2022-02-03] MEDS ORDERED: Magnesium Sulfate 2 gm BAG 2 GM/50 ML BAG IVPB ONE (12:09)
[2022-02-03] MEDS ORDERED: Acetaminophen IV 1 GM/100ML 1,000 MG/100 ML BAG IV ONE (13:11)
[2022-02-03] MEDS ORDERED: Morphine 4 MG/ML VIAL (1 ml) IV ONE (15:44)
[2022-02-03] MEDS ORDERED: HYDROmorphone 1 MG/1 ML SYRINGE IV ONE (18:31)
[2022-02-03 19:53] LABS: INR 1.73 (0.89-1.11)
[2022-02-03 21:13] LABS: High Sensitivity Troponin 1 Hr 903 pg/mL (<20)
[2022-02-04] MEDS: Ampicillin ADVAN 2 GM in NS 0.9% 100 ml BAG 100 ML IVPB SCH ×2 (03:51→17:37)
[2022-02-04 06:32] LABS: Hematocrit 24 % (42-52); Hemoglobin 8.7 g/dL (14.0-18.0); Mean Corpuscular HGB Conc 36 g/dL (31-36); Mean Corpuscular Hemoglobin 35 pg (27-31); Mean Corpuscular Volume 97 fL (80-94); Mean Platelet Volume 8.6 fL (7.4-10.4); Platelet Count 168 10^3/uL (150-450); Red Blood Count 2.49 10^6 /uL (4.18-5.48); Red Cell Distribution Width 15 % (10-15); White Blood Count 12.6 10^3/uL (3.5-10.8)
[2022-02-04 06:37] LABS: ABS Basophils 0.1 10^3/ul (0-0.2); ABS Eosinophils 0.1 10^3/ul (0-0.6); ABS Monocytes 1.4 10^3/ul (0-0.8); ABS Neutrophils 10.2 10^3/ul (1.5-7.7); Eosinophil % 0.8 %; Lymphocyte % 7.8 %
[2022-02-04 06:59] LABS: Calcium 8.6 mg/dL (8.6-10.3); Creatinine, Serum 8.64 mg/dL (0.67-1.17); Magnesium 2.2 mg/dL (1.9-2.7); Potassium 3.6 mmol/L (3.5-5.0); eGFR CKD-EPI 6.8 (>60)
[2022-02-04] MEDS: Heparin 1,000 UNIT/ML 10 ml (10,000 UNITS) CATHLAB/DIALYSIS DIALYSIS ONE ×5 (07:59→17:05)
[2022-02-04] MEDS ORDERED: cefTRIAXone 2 gm/50 mL D5W 2 GM/50 ML BAG IV SCH (09:00)
[2022-02-04 10:44] LABS: Hepatitis B Surface Antigen Nonreactive (Nonreactive)
[2022-02-04 11:01] LABS: Hepatitis B Surface Ab Not Immune (Immune)
[2022-02-04] MEDS ORDERED: Albuterol/Ipratropium NEB.SOL (2.5/0.5 MG) 3 ML NEB.SOLN INH ONE (23:06)
[2022-02-05] MEDS: Ampicillin ADVAN 2 GM in NS 0.9% 100 ml BAG 100 ML IVPB SCH ×2 (03:44→17:03)
[2022-02-05 08:01] LABS: ABS Eosinophils 0.1 10^3/ul (0-0.6); ABS Lymphocytes 0.6 10^3/ul (1.0-4.8); ABS Neutrophils 9.7 10^3/ul (1.5-7.7); Eosinophil % 1.1 %; Hematocrit 24 % (42-52); Hemoglobin 8.3 g/dL (14.0-18.0); Lymphocyte % 5.2 %; Mean Corpuscular HGB Conc 34 g/dL (31-36); Mean Corpuscular Hemoglobin 34 pg (27-31); Mean Corpuscular Volume 98 fL (80-94); Mean Platelet Volume 8.3 fL (7.4-10.4); Platelet Count 182 10^3/uL (150-450); Red Blood Count 2.47 10^6 /uL (4.18-5.48); Red Cell Distribution Width 15 % (10-15); White Blood Count 11.4 10^3/uL (3.5-10.8)
[2022-02-05] MEDS: Ondansetron ODT 4 mg TAB 4 MG TAB SL SCH ×3 (08:19→20:55)
[2022-02-05 08:29] LABS: Calcium 9.1 mg/dL (8.6-10.3); Creatinine, Serum 7.86 mg/dL (0.67-1.17); Magnesium 2.2 mg/dL (1.9-2.7); Potassium 3.6 mmol/L (3.5-5.0); eGFR CKD-EPI 7.6 (>60)
[2022-02-05] MEDS ORDERED: Metoprolol Tartrate 5 mg VIAL 5 ml VIAL (1 mg/ml) IV ONE (10:10)
[2022-02-05 11:30] LABS: Albumin 3.3 g/dL (3.2-5.2); Albumin/Globulin Ratio 1.2 (1-3); Globulin 2.8 g/dL (2-4); Indirect Bilirubin 0.8 mg/dL (0.3-1.0); Total Bilirubin 1.8 mg/dL (0.2-1.0); Total Protein 6.1 g/dL (6.4-8.9)
[2022-02-05 15:15] LABS: PSA Screening Total 0.154 ng/mL (0-4.000)
[2022-02-05] MEDS ORDERED: Digoxin IV 0.5 MG/2 ML AMP (0.25 MG/ML) IV SLOW PU ONE (16:03)
[2022-02-06] MEDS: Ondansetron ODT 4 mg TAB 4 MG TAB SL SCH ×4 (02:39→20:44)
[2022-02-06] MEDS: Ampicillin ADVAN 2 GM in NS 0.9% 100 ml BAG 100 ML IVPB SCH ×2 (04:18→16:14)
[2022-02-06 09:12] LABS: ABS Eosinophils 0.2 10^3/ul (0-0.6); ABS Monocytes 1.1 10^3/ul (0-0.8); ABS Neutrophils 9.7 10^3/ul (1.5-7.7); Eosinophil % 1.5 %; Hematocrit 26 % (42-52); Hemoglobin 8.8 g/dL (14.0-18.0); Lymphocyte % 7.9 %; Mean Corpuscular HGB Conc 35 g/dL (31-36); Mean Corpuscular Hemoglobin 34 pg (27-31); Mean Corpuscular Volume 98 fL (80-94); Mean Platelet Volume 9.1 fL (7.4-10.4); Platelet Count 240 10^3/uL (150-450); Red Cell Distribution Width 15 % (10-15); White Blood Count 12.1 10^3/uL (3.5-10.8)
[2022-02-06 09:45] LABS: Creatinine, Serum 9.29 mg/dL (0.67-1.17); Potassium 4.2 mmol/L (3.5-5.0); eGFR CKD-EPI 6.2 (>60)
[2022-02-06] MEDS: Metoprolol Tartrate 5 mg VIAL 5 ml VIAL (1 mg/ml) IV PRN (11:50)
[2022-02-06] MEDS ORDERED: Levalbuterol 0.63MG/3ML NEB UNIT OF USE INH ONE (12:51)
[2022-02-06 13:35] LABS: High Sensitivity Troponin 1 Hr 287 pg/mL (<20)
[2022-02-06] MEDS ORDERED: Iodixanol (CONTRAST) 320 MG/ML 100 ML SDV IV ONE (13:49)
[2022-02-06 13:54] LABS: PCO2 Arterial 35 mmHg (35-45); PO2 Arterial 72 mmHg (80-100)
[2022-02-06 15:38] LABS: High Sensitivity Troponin 3 Hr 264 pg/mL (<20)
[2022-02-07] MEDS: Ampicillin ADVAN 2 GM in NS 0.9% 100 ml BAG 100 ML IVPB SCH ×2 (04:56→20:14)
[2022-02-07] MEDS: Ondansetron ODT 4 mg TAB 4 MG TAB SL SCH ×4 (05:03→20:14)
[2022-02-07 14:06] LABS: ABS Basophils 0.1 10^3/ul (0-0.2); ABS Eosinophils 0.1 10^3/ul (0-0.6); ABS Lymphocytes 0.7 10^3/ul (1.0-4.8); ABS Monocytes 1.2 10^3/ul (0-0.8); ABS Neutrophils 12.2 10^3/ul (1.5-7.7); Eosinophil % 0.5 %; Hematocrit 24 % (42-52); Hemoglobin 7.9 g/dL (14.0-18.0); Lymphocyte % 4.7 %; Mean Corpuscular HGB Conc 33 g/dL (31-36); Mean Corpuscular Hemoglobin 32 pg (27-31); Mean Corpuscular Volume 98 fL (80-94); Mean Platelet Volume 8.7 fL (7.4-10.4); Platelet Count 262 10^3/uL (150-450); Red Blood Count 2.44 10^6 /uL (4.18-5.48); Red Cell Distribution Width 15 % (10-15); White Blood Count 14.3 10^3/uL (3.5-10.8)
[2022-02-07 14:42] LABS: Calcium 8.5 mg/dL (8.6-10.3); Creatinine, Serum 12.13 mg/dL (0.67-1.17); Magnesium 2.4 mg/dL (1.9-2.7); Potassium 4.4 mmol/L (3.5-5.0); eGFR CKD-EPI 4.5 (>60)
[2022-02-07] MEDS: Heparin 1,000 UNIT/ML 10 ml (10,000 UNITS) CATHLAB/DIALYSIS DIALYSIS PRN ×4 (14:50→17:45)
[2022-02-08] MEDS: Ondansetron ODT 4 mg TAB 4 MG TAB SL SCH ×4 (02:18→20:56)
[2022-02-08] MEDS: Ampicillin ADVAN 2 GM in NS 0.9% 100 ml BAG 100 ML IVPB SCH ×2 (05:33→16:33)
[2022-02-08 06:31] LABS: ABS Basophils 0.1 10^3/ul (0-0.2); ABS Eosinophils 0.1 10^3/ul (0-0.6); ABS Lymphocytes 0.7 10^3/ul (1.0-4.8); ABS Monocytes 1.3 10^3/ul (0-0.8); ABS Neutrophils 11.6 10^3/ul (1.5-7.7); Eosinophil % 0.8 %; Hematocrit 24 % (42-52); Hemoglobin 8.2 g/dL (14.0-18.0); Lymphocyte % 5.1 %; Mean Corpuscular HGB Conc 35 g/dL (31-36); Mean Corpuscular Hemoglobin 34 pg (27-31); Mean Corpuscular Volume 98 fL (80-94); Mean Platelet Volume 8.8 fL (7.4-10.4); Platelet Count 279 10^3/uL (150-450); Red Blood Count 2.43 10^6 /uL (4.18-5.48); Red Cell Distribution Width 15 % (10-15); White Blood Count 13.7 10^3/uL (3.5-10.8)
[2022-02-08 07:03] LABS: Calcium 8.9 mg/dL (8.6-10.3); Creatinine, Serum 9.77 mg/dL (0.67-1.17); Magnesium 2.2 mg/dL (1.9-2.7); Potassium 4.2 mmol/L (3.5-5.0); eGFR CKD-EPI 5.8 (>60)
[2022-02-08] MEDS: Heparin 1,000 UNIT/ML 10 ml (10,000 UNITS) CATHLAB/DIALYSIS DIALYSIS PRN ×2 (07:05→08:02)
[2022-02-08] MEDS ORDERED: Vancomycin 1,500 MG in NS 0.9% 250 ml 250 ML IVPB ONE (11:27)
[2022-02-08] MEDS: HYDROcodone/Acetamin 10/325 TAB (NF) PO PRN (12:17)
[2022-02-08] MEDS: Albumin Human 25% 12.5 GM/50 ML BTL IV SCH ×3 (12:18→22:47)
[2022-02-08] MEDS ORDERED: Albuterol 2.5mg/3 ml (0.083%) NEB.SOLN INH ONE (19:46)
[2022-02-09] MEDS: Ondansetron ODT 4 mg TAB 4 MG TAB SL SCH ×4 (02:44→19:59)
[2022-02-09] MEDS: Albumin Human 25% 12.5 GM/50 ML BTL IV SCH ×4 (04:12→23:55)
[2022-02-09] MEDS: Ampicillin ADVAN 2 GM in NS 0.9% 100 ml BAG 100 ML IVPB SCH ×3 (04:33→19:52)
[2022-02-09] MEDS ORDERED: Lidocaine 1% VIAL 10 MG/ML VIAL 30 ML ONE (11:08)
[2022-02-09] MEDS ORDERED: Heparin 2 UNITS/ML IVPREMIX 2,000 UNIT/1,000 ML BAG IV ONE (11:09)
[2022-02-09] MEDS ORDERED: Midazolam 5 mg/5 ml VIAL 1 mg/ml 5 ml VIAL (5 mg) ONE (11:19)
[2022-02-09] MEDS ORDERED: fentaNYL 100 mcg/2 ml 50 MCG/ML VIAL ONE ×3 (11:19→11:38)
[2022-02-09] MEDS ORDERED: Iodixanol 320 (CONTRAST) 100 ML SDV ONE (11:19)
[2022-02-09] MEDS: Heparin 1,000 UNIT/ML 10 ml (10,000 UNITS) CATHLAB/DIALYSIS DIALYSIS PRN ×4 (14:52→17:57)
[2022-02-09] MEDS: HYDROcodone/Acetamin 10/325 TAB (NF) PO PRN (19:45)
[2022-02-09] MEDS ORDERED: Lidocaine PATCH 5% PATCH TRANSDERM ONE (23:25)
[2022-02-10] MEDS: Albumin Human 25% 12.5 GM/50 ML BTL IV SCH ×2 (04:57→12:53)
[2022-02-10] MEDS: Ondansetron ODT 4 mg TAB 4 MG TAB SL SCH ×4 (04:57→20:13)
[2022-02-10 09:06] LABS: Calcium 8.9 mg/dL (8.6-10.3); Creatinine, Serum 6.89 mg/dL (0.67-1.17); eGFR CKD-EPI 8.9 (>60)
[2022-02-10] MEDS: Ampicillin ADVAN 2 GM in NS 0.9% 100 ml BAG 100 ML IVPB SCH ×2 (09:24→20:15)
[2022-02-10] MEDS ORDERED: Metoprolol Tartrate 5 mg VIAL 5 ml VIAL (1 mg/ml) ONE (13:20)
[2022-02-10] MEDS: Metoprolol Tartrate 5 mg VIAL 5 ml VIAL (1 mg/ml) IV PRN (13:24)
[2022-02-10] MEDS ORDERED: Rocuronium 50 mg VIAL 10 mg/ml 5 ml VIAL (50 mg) ONE (13:39)
[2022-02-10] MEDS ORDERED: fentaNYL 100 mcg/2 ml 50 MCG/ML VIAL ONE (13:39)
[2022-02-10] MEDS ORDERED: Lidocaine 2% PF 5 ML VIAL ONE (13:39)
[2022-02-10] MEDS ORDERED: Phenylephrine IV 10 MG/ML 1 ml VIAL ONE (13:39)
[2022-02-10] MEDS ORDERED: Midazolam 2 mg/2 ml VIAL 1 mg/ml 2 ml VIAL (2 mg) ONE (13:39)
[2022-02-10] MEDS ORDERED: Ondansetron 4 mg VIAL 2 MG/ML 2 ml VIAL ONE (13:39)
[2022-02-10] MEDS ORDERED: Propofol 10 MG/ML 20 ML BTL ONE (13:39)
[2022-02-10] MEDS ORDERED: Albumin Human 25% 12.5 GM/50 ML BTL IV PRN (14:00)
[2022-02-10] MEDS ORDERED: Naloxone 0.4 mg VIAL 0.4 mg/ml 1 ml VIAL IV PRN (15:21)
[2022-02-10] MEDS: cefTRIAXone 2 gm/50 mL D5W 2 GM/50 ML BAG IV SCH (17:39)
[2022-02-11] MEDS: Ondansetron ODT 4 mg TAB 4 MG TAB SL SCH (03:10)
[2022-02-11] MEDS: cefTRIAXone 2 gm/50 mL D5W 2 GM/50 ML BAG IV SCH (04:36)
[2022-02-11 07:50] VITALS: BP 97/45
== END 2022-02-11 08:55 | disposition left against medical advice (07) | DRG 871 ==
LOC: ED 10:32 → EDHOLD 10:32 → OBSVTOIN 14:36 → SUATTDRO 14:36 → MEDTELE 20:30
PROVIDERS: ADMIT Student in an Organized Health Care Education/Training Program; ATTEND Internal Medicine
PROC: O.CATEE (2022-02-10 14:00)